=== PATIENT | male | born 1945 | race Caucasian/White ===

== ENCOUNTER 2020-09-23 15:34 | Observation (INO) | payer MEDICARE, MEDICAID, SELFPAY ==
--- NOTE | ~2020-09-23 | CT_ITS ---
EXAMINATION: CT HEAD WITHOUT CONTRAST CLINICAL INFORMATION: Slurred speech and weakness COMPARISON: Previous head CT September 2018 TECHNIQUE: Contiguous axial imaging was performed from the skull base to vertex without intravenous administration of contrast. This CT examination was performed using dose optimization techniques as appropriate, variously including the following: *Automated exposure control *Adjustment of mA and/or kV according to patient size (this includes techniques or standardized protocols for targeted exams where dose is matched to indication/reason for exam; i.e. extremities or head) *Use of iterative reconstruction technique DLP: 716 mGy-cm FINDINGS: There is no evidence of an extra-axial collection. There is no evidence of intra-axial or extra-axial hemorrhage. There is age-appropriate prominence of ventricles and extra-axial CSF spaces. There is nonspecific periventricular white matter disease. No mass, mass effect or infarct is seen. There is evidence of atherosclerotic disease. Review of bone windows is normal. Visualized mastoid air cells, middle ears and paranasal sinuses are clear. CT/CT head/brain wo con IMPRESSION: No acute intracranial findings. Age appropriate prominence of the ventricles and extra-axial CSF spaces and nonspecific periventricular white matter disease.
--- NOTE | ~2020-09-23 | XR_ITS ---
EXAMINATION: XR CHEST CLINICAL INFORMATION: TIA, slurred speech, weakness now resolved. COMPARISON: Chest radiographs 09/30/2018, 03/12/2018 TECHNIQUE: 2 views of the chest were obtained. FINDINGS: The lungs are clear. The vascularity is normal. There is no airspace consolidation or groundglass opacity or effusion. The costophrenic sulci are well-defined. The heart is normal in size. The hilar and mediastinal contours are normal. No visible acute bony abnormality. XR/XR chest 2V IMPRESSION: Unremarkable examination.
--- NOTE | ~2020-09-23 | US_ITS ---
EXAMINATION: US EXTRACRANIAL CAROTID DUPLEX, BILATERAL CLINICAL INFORMATION: Syncope COMPARISON: None TECHNIQUE: Real-time ultrasound and Doppler techniques (integrating B-mode 2-D vascular images, Doppler spectral analysis and color-flow Doppler imaging) were utilized to interrogate the extracranial carotid arteries, the vertebral arteries and proximal subclavian arteries bilaterally. The degree of stenosis is determined by criteria similar to NASCET. FINDINGS: Right Side: 1. There is minimal atherosclerotic plaque seen in the bifurcation/proximal ICA region. 2. The common carotid artery PSV proximally is 55 cm/s and distally 45 cm/s. 3. The proximal internal carotid artery velocities are 40 cm/s systolic and 10 cm/s diastolic. 4. The proximal external carotid artery PSV is 70 cm/s. 5. The vertebral artery shows antegrade flow. 6. The subclavian artery waveforms are normal. Left Side: 1. There is moderate atherosclerotic plaque seen in the bifurcation/proximal ICA region. 2. The common carotid artery PSV proximally is 56 cm/s and distally 50 cm/s. 3. The proximal internal carotid artery velocities are 105 cm/s systolic and 14 cm/s diastolic. Velocities are 125 in the mid ICA just after the proximal plaque. 4. The proximal external carotid artery PSV is 31 cm/s. 5. The vertebral artery shows antegrade flow. 6. The subclavian artery waveforms are normal. US/US carotid duplex BI IMPRESSION: 1. RIGHT: Minimal, non-hemodynamically significant stenosis of the proximal right internal carotid artery corresponding to a 0-49% stenosis by velocity criteria. 2. LEFT: Minimal, non-hemodynamically significant stenosis of the proximal left internal carotid artery corresponding to a 0-49% stenosis by velocity criteria.
[2020-09-23 15:35] VITALS: BP 126/75; BP 132/62; PULSE 92; PULSE 94; RESP 16; TEMP 36.9; O2SAT 95; BMI 25.1
--- NOTE | 2020-09-23 15:50 | ECG_ITS ---
Test Reason : TIA Blood Pressure : / mmHG Vent. Rate : 078 BPM Atrial Rate : 078 BPM P-R Int : 142 ms QRS Dur : 082 ms QT Int : 400 ms P-R-T Axes : 047 -39 050 degrees QTc Int : 456 ms Normal sinus rhythm Left axis deviation Possible Anterior infarct (cited on or before 30-SEP-2018) Abnormal ECG When compared with ECG of 30-SEP-2018 19:19, Premature atrial complexes are no longer Present Referred By: Christina Cai Electronically Signed By:DIANE EMERY MD
--- NOTE | 2020-09-23 15:50 | ED_ITS ---
HPI - Neuro Symptoms/Deficit General Chief Complaint: Neuro Symptoms/Deficit Stated Complaint: TIA? Time Seen by Provider: 09/23/20 15:50 Source: EMS and interpreter for the deaf Mode of arrival: EMS Limitations: language barrier History of Present Illness HPI Narrative: 75-year-old male with a past medical history of hypertension, hyperlipidemia, keq-fuipfir-rlizpydoz diabetes, GERD, dementia, diabetic neuropathy here with complaints of episode of slurred speech, weakness and facial droop which has since resolved. Family tells me at 14:50 the patient was sitting down when they noticed that he had a 10 minutes episode of slurred speech with a right-sided facial droop and his right arm was 'cramped and not working. Per family the patient was also complaining of some dizziness. When asked the patient how long his dizziness has been going on he tells me 3 days. He denies any headache, vision changes. No recent falls. He is on a baby aspirin daily Related Data Home Medications Medication Instructions Recorded Confirmed amlodipine 1 tab PO DAILY 09/23/20 09/23/20 aspirin 1 tab PO DAILY 09/23/20 09/23/20 bisacodyl 1 tab PO BEDTIME PRN 09/23/20 09/23/20 docusate sodium 1 cap PO BID 09/23/20 09/23/20 enalapril maleate 1 tab PO DAILY 09/23/20 09/23/20 gabapentin 1 cap PO BID 09/23/20 09/23/20 metformin 1 tab PO QAM 09/23/20 09/23/20 omeprazole 1 cap PO BID@0630,1630 09/23/20 09/23/20 simvastatin 1 tab PO BEDTIME 09/23/20 09/23/20 tizanidine 1 tab PO BID@09,15 09/23/20 09/23/20 tramadol 1 tab PO BID 09/23/20 09/23/20 Allergies Allergy/AdvReac Type Severity Reaction Status Date / Time No Known Allergies Allergy Unverified 11/21/19 15:41 [No Known Allergies*] Review of Systems Review of Systems: Yes all other systems are reviewed and are negative Constitutional: Constitutional: Reports no additional constitutional complaints, Denies body ache(s), Denies chills, Denies fever(s), Denies headache(s) and Reports weakness Eyes: Eyes: Reports no additional eye complaints and Denies change in vision ENT: Reports system reviewed and no additional complaints, except as documented, Denies dizziness, Denies headache(s), Denies nasal congestion, Denies nasal discharge and Denies neck pain Cardiovascular: Cardiovascular: Reports no additional cardiovascular complaints, Denies chest pain, Denies leg edema and Denies dyspnea Respiratory: Respiratory: Reports no additional respiratory complaints, Denies cough and Denies dyspnea Gastrointestinal: Gastrointestinal: Reports no additional gastrointestinal complaints, Denies abdominal pain, Denies diarrhea, Denies nausea and Denies vomiting Genitourinary: Genitourinary: Denies urinary incontinence Musculoskeletal: Musculoskeletal: Reports no additional musculoskeletal complaints, Denies back pain, Denies arthralgias, Denies joint swelling, Denies neck pain, Denies numbness and Denies tingling Integumentary/Breasts: Skin/Breast: Reports system reviewed and no additional complaints, except as docu and Denies rash Neurologic: Reports system reviewed and no additional complaints, except as documented, Reports Abnormal speech present, Denies dizziness, Denies headache(s), Denies numbness, Denies tingling and Reports weakness Comments: Facial weakness PMFSH Past Medical History Attestation statement: The following information was validated with the patient. Source: old records reviewed and nursing notes reviewed Medical History Dementia Diabetes Diabetic neuropathy GERD (gastroesophageal reflux disease) High cholesterol Hypertension Social History Social History Advance Directives: No Advance Directives Information Provided: No Physical Exam Vital Signs: Vital Signs: Last Vital Signs Temp 98.4 F 09/23/20 15:35 Pulse 92 09/23/20 15:35 Resp 16 09/23/20 15:35 BP 126/75 09/23/20 15:35 Pulse Ox 95 09/23/20 15:35 Body Mass Index 25.1 Const: General: cooperative, healthy appearing, comfortable and no acute distress Orientation/consciousness: oriented to person and oriented to place Limitations: no limitations HENMT: Head: Yes normal to inspection Ears: hearing grossly normal bilaterally General nose exam: Normal external nose present Face and sinus: Yes normal facial exam Mouth: Normal oral and palatal mucosa present Throat: Yes posterior oropharynx normal Eyes: General: appearance normal, both eyes and all related structures Pupils: Equal, round and reactive pupils present Neck: Neck: Yes normal visual inspection Chest: Chest palpation & inspection: normal inspection of the chest Resp: Effort & Inspection: normal respiratory effort Auscultation: clear to auscultation bilaterally Cardio: Rate: regular rate Rhythm: regular rhythm Peripheral pulses: Peripheral pulses 2+ throughout GI: Inspection: Yes normal to inspection Palpation (GI): Soft to palpation and nontender Auscultation: normal bowel sounds Back/Spine/Pelvis: Thoracic/Lumbar Spine: thoracic and lumbar spine normal to inspection Skin: General skin exam: no rashes or lesions noted Neuro: General: oriented to person, oriented to place, no focal motor deficits and normal sensation to monofilament Cranial nerves: Yes CN's II-XII intact bilaterally, Yes Equal, round and reactive pupils present, Yes Bilaterally intact EOM present, Yes Nystagmus not present, Yes Normal facial strength present, Yes Midline tongue present and Yes Normal gag reflex present Cognit ion (Neuro): normal cognition Speech: Abnormal speech present Gait exam (Neuro): Normal gait present Motor exam (neuro): 5/5 motor strength present throughout Sensory Exam: Normal double simultaneous stimulation for sensation Coordination: [id number] test normal, [id number]-[id number] test normal and tandem gait normal Extrem: General: Yes normal to inspection, Yes no pedal edema and Yes no calf tenderness Course Course Course Narrative: 75-year-old male here with episode of speech change, facial droop and weakness on 1 side which resolved prior to arrival to the emergency department. On arrival the patient is neurologically intact. He does have some mild confusion but family tells me this is normal for him due to dementia. NIH 0. Sounds like TIA. Will check labs, EKG, chest x-ray, CT head. Patient will require admission for further w/u. 1745-labs, urine, EKG, imaging all unremarkable. His troponin is in the indeterminate range. He has no reports of chest pain with EKG which shows no new changes. Plan for repeat 3 hour troponin. Call out to medicines discussed for admission 1809-Dr Devlin accepted admission. MDM - Neuro Symptoms/Deficit Differential Diagnosis Differential diagnosis: Likely subarachnoid hemorrhage, cerebrovascular accident and transient cerebral ischemia Medical Records Attestation: I reviewed the patient's medical records. Lab Data Attestation: I reviewed the patient's lab results. Result diagrams: 09/23/20 16:57 09/23/20 16:57 Labs: Lab Results 09/23/20 09/23/20 09/23/20 Range/Units 16:57 16:57 16:57 WBC 7.7 (4.8-10.8) X10*3/uL RBC 4.99 (4.60-5.80) X10*6/uL Hgb 14.1 (14.0-18.0) g/dl Hct 43.7 (42-52) % MCV 87.6 (80-98) fL MCH 28.3 (27.0-33.0) pg MCHC 32.3 (31.0-36.0) g/dl RDW 11.9 (11.0-16.0) % Plt Count 184 (160-400) X10*3/uL MPV 10.8 (9.4-12.4) fL Immature Gran % (Auto) 0.3 (0.0-0.4) % Neut % (Auto) 67.1 (45-73) % Lymph % (Auto) 21.1 (20-40) % [place] % (Auto) 9.8 (2-11) % Eos % (Auto) 0.9 (0-4) % Baso % (Auto) 0.8 (0-2) % Lymph # (Auto) 1.6 (1.2-4.9) X10*3/uL [place] # (Auto) 0.8 (0.1-1.2) X10*3/uL Eos # (Auto) 0.1 (0.0-0.4) X10*3/uL Baso # (Auto) 0.1 (0.0-0.2) X10*3/uL Abs Immat Gran (auto) 0.02 (0.00-0.03) X10*3/uL Absolute Neuts (auto) 5.2 (2.0-8.3) X10*3/uL Absolute Nucleated RBC 0.000 (0.0-0.012) X10*3/uL Nucleated RBC % (auto) 0.0 (0.0-0.2) /100WBC PT 11.7 (9.9-13.0) SEC INR 1.0 (0.9-1.1) APTT 33.3 (24.1-38.0) SEC Sodium 138 (135-145) mmol/L Potassium 4.6 (3.3-5.1) mmol/L Chloride 105 (96-108) mmol/L Carbon Dioxide 25 (22-29) mmol/L Anion Gap 13 (12-20) BUN 17 H (9-16) mg/dL Creatinine 1.10 (0.5-1.4) mg/dL Estim Creat Clear Calc 60.8 Estimated GFR > 60 POC Glucose (60-115) mg/dL Random Glucose 152 H (60-115) mg/dL Calcium 10.0 (8.4-10.2) mg/dL Phosphorus 2.9 (2.7-4.5) mg/dL Magnesium 2.0 (1.6-2.6) mg/dL Total Creatine Kinase 82 (38-174) U/L Troponin I High Sens (<3.5-35.0) ng/L TSH 1.29 (0.32-4.0) uIU/mL Urine Color Urine Appearance Urine pH (5.0-8.0) Ur Specific [place] (1.005-1.025) Urine Protein (NEG-TRACE) MG/DL Urine Glucose (UA) (NEG) MG/DL Urine Ketones (NEG) MG/DL Urine Blood (NEG) Urine Nitrite (NEG) Ur Leukocyte Esterase (NEG) COVID-19 (JOANNE) (Negative) COVID-19 Clin Com 09/23/20 09/23/20 09/23/20 Range/Units 16:57 16:57 17:08 WBC (4.8-10.8) X10*3/uL RBC (4.60-5.80) X10*6/uL Hgb (14.0-18.0) g/dl Hct (42-52) % MCV (80-98) fL MCH (27.0-33.0) pg MCHC (31.0-36.0) g/dl RDW (11.0-16.0) % Plt Count (160-400) X10*3/uL MPV (9.4-12.4) fL Immature Gran % (Auto) (0.0-0.4) % Neut % (Auto) (45-73) % Lymph % (Auto) (20-40) % [place] % (Auto) (2-11) % Eos % (Auto) (0-4) % Baso % (Auto) (0-2) % Lymph # (Auto) (1.2-4.9) X10*3/uL [place] # (Auto) (0.1-1.2) X10*3/uL Eos # (Auto) (0.0-0.4) X10*3/uL Baso # (Auto) (0.0-0.2) X10*3/uL Abs Immat Gran (auto) (0.00-0.03) X10*3/uL Absolute Neuts (auto) (2.0-8.3) X10*3/uL Absolute Nucleated RBC (0.0-0.012) X10*3/uL Nucleated RBC % (auto) (0.0-0.2) /100WBC PT (9.9-13.0) SEC INR (0.9-1.1) APTT (24.1-38.0) SEC Sodium (135-145) mmol/L Potassium (3.3-5.1) mmol/L Chloride (96-108) mmol/L Carbon Dioxide (22-29) mmol/L Anion Gap (12-20) BUN (9-16) mg/dL Creatinine (0.5-1.4) mg/dL Estim Creat Clear Calc Estimated GFR POC Glucose 145 H (60-115) mg/dL Random Glucose (60-115) mg/dL Calcium (8.4-10.2) mg/dL Phosphorus (2.7-4.5) mg/dL Magnesium (1.6-2.6) mg/dL Total Creatine Kinase (38-174) U/L Troponin I High Sens 32.1 (<3.5-35.0) ng/L TSH (0.32-4.0) uIU/mL Urine Color Urine Appearance Urine pH (5.0-8.0) Ur Specific [place] (1.005-1.025) Urine Protein (NEG-TRACE) MG/DL Urine Glucose (UA) (NEG) MG/DL Urine Ketones (NEG) MG/DL Urine Blood (NEG) Urine Nitrite (NEG) Ur Leukocyte Esterase (NEG) COVID-19 (JOANNE) Negative (Negative) COVID-19 Clin Com See Note 09/23/20 Range/Units 17:14 WBC (4.8-10.8) X10*3/uL RBC (4.60-5.80) X10*6/uL Hgb (14.0-18.0) g/dl Hct (42-52) % MCV (80-98) fL MCH (27.0-33.0) pg MCHC (31.0-36.0) g/dl RDW (11.0-16.0) % Plt Count (160-400) X10*3/uL MPV (9.4-12.4) fL Immature Gran % (Auto) (0.0-0.4) % Neut % (Auto) (45-73) % Lymph % (Auto) (20-40) % [place] % (Auto) (2-11) % Eos % (Auto) (0-4) % Baso % (Auto) (0-2) % Lymph # (Auto) (1.2-4.9) X10*3/uL [place] # (Auto) (0.1-1.2) X10*3/uL Eos # (Auto) (0.0-0.4) X10*3/uL Baso # (Auto) (0.0-0.2) X10*3/uL Abs Immat Gran (auto) (0.00-0.03) X10*3/uL Absolute Neuts (auto) (2.0-8.3) X10*3/uL Absolute Nucleated RBC (0.0-0.012) X10*3/uL Nucleated RBC % (auto) (0.0-0.2) /100WBC PT (9.9-13.0) SEC INR (0.9-1.1) APTT (24.1-38.0) SEC Sodium (135-145) mmol/L Potassium (3.3-5.1) mmol/L Chloride (96-108) mmol/L Carbon Dioxide (22-29) mmol/L Anion Gap (12-20) BUN (9-16) mg/dL Creatinine (0.5-1.4) mg/dL Estim Creat Clear Calc Estimated GFR POC Glucose (60-115) mg/dL Random Glucose (60-115) mg/dL Calcium (8.4-10.2) mg/dL Phosphorus (2.7-4.5) mg/dL Magnesium (1.6-2.6) mg/dL Total Creatine Kinase (38-174) U/L Troponin I High Sens (<3.5-35.0) ng/L TSH (0.32-4.0) uIU/mL Urine Color YELLOW Urine Appearance CLEAR Urine pH 5.5 (5.0-8.0) Ur Specific [place] >= 1.030 H (1.005-1.025) Urine Protein NEG (NEG-TRACE) MG/DL Urine Glucose (UA) NEG (NEG) MG/DL Urine Ketones NEG (NEG) MG/DL Urine Blood NEG (NEG) Urine Nitrite NEG (NEG) Ur Leukocyte Esterase NEG (NEG) COVID-19 (JOANNE) (Negative) COVID-19 Clin Com Imaging Data CT scan - head: Attestation: I personally reviewed and interpreted this imaging study as follows: Radiologist's impression: FINDINGS: There is no evidence of an extra-axial collection. There is no evidence of intra-axial or extra-axial hemorrhage. There is age-appropriate prominence of ventricles and extra-axial CSF spaces. There is nonspecific periventricular white matter disease. No mass, mass effect or infarct is seen. There is evidence of atherosclerotic disease. Review of bone windows is normal. Visualized mastoid air cells, middle ears and paranasal sinuses are clear. CT/CT head/brain wo con IMPRESSION: No acute intracranial findings. Age appropriate prominence of the ventricles and extra-axial CSF spaces and nonspecific periventricular white matter disease. Chest x-ray: Attestation: I personally reviewed and interpreted this imaging study as follows: Radiologist's impression: [facility] [place] [id number] ReportSigned Patient: Melly Lua#: [id number]: 5Acct:[id number]/Sex: 75 / MADM Date: 09/23/20Loc: [address]: Ordering Physician: GATO FABIAN NP Date of Service: 09/23/20 Procedure(s): XR chest 2V Accession Number(s): [id number] cc: GATO FABIAN TRANSPORTATION DIRECTOR~ EXAMINATION: XR CHEST CLINICAL INFORMATION: TIA, slurred speech, weakness now resolved. COMPARISON: Chest radiographs 09/30/2018, 03/12/2018 TECHNIQUE: 2 views of the chest were obtained. FINDINGS: The lungs are clear. The vascularity is normal. There is no airspace consolidation or groundglass opacity or effusion. The costophrenic sulci are well-defined. The heart is normal in size. The hilar and mediastinal contours are normal. No visible acute bony abnormality. XR/XR chest 2V IMPRESSION: Unremarkable examination. ECG Data Attestation: I personally reviewed and interpreted this ECG as follows: ECG interpretation date: 09/23/20 ECG interpretation time: 16:44 Interpretation: Normal sinus rhythm with a rate of 78, normal [place], normal QRS, Discharge Plan Discharge Clinical Impression: Transient cerebral ischemia Patient Disposition: Admitted As Inpatient
--- NOTE | 2020-09-23 16:47 | PHA.MEDREC ---
Pharmacy Consult ? Medication Reconciliation Pharmacy has completed the medication reconciliation from list brought in by family.
[2020-09-23 17:04] LABS: MANUAL DIFF FLAG NO
[2020-09-23 17:08] LABS: Basophils Absolute Auto 0.1 X10*3/uL (0.0-0.2); Basophils Percent Auto 0.8 % (0-2); Eosinophils Absolute Auto 0.1 X10*3/uL (0.0-0.4); Eosinophils Percent Auto 0.9 % (0-4); Hematocrit 43.7 % (42-52); Hemoglobin 14.1 g/dl (14.0-18.0); Imm Gran Abs Auto 0.02 X10*3/uL (0.00-0.03); Imm Gran Pct Auto 0.3 % (0.0-0.4); Lymphocytes Absolute Auto 1.6 X10*3/uL (1.2-4.9); Lymphocytes Percent Auto 21.1 % (20-40); Mean Corpuscular HGB Conc 32.3 g/dl (31.0-36.0); Mean Corpuscular Hemoglobin 28.3 pg (27.0-33.0); Mean Corpuscular Volume 87.6 fL (80-98); Mean Platelet Volume 10.8 fL (9.4-12.4); Monocytes Absolute Auto 0.8 X10*3/uL (0.1-1.2); Monocytes Percent Auto 9.8 % (2-11); Neutrophils Absolute Auto 5.2 X10*3/uL (2.0-8.3); Neutrophils Percent Auto 67.1 % (45-73); Platelet Count 184 X10*3/uL (160-400); Red Blood Count 4.99 X10*6/uL (4.60-5.80); Red Cell Distribution Width 11.9 % (11.0-16.0); White Blood Count 7.7 X10*3/uL (4.8-10.8)
[2020-09-23 17:12] LABS: Glucose, Whole Blood 145 mg/dL (60-115)
[2020-09-23 17:23] LABS: COVID-19 Test Negative (Negative)
[2020-09-23 17:24] LABS: Glucose Urine UA NEG (NEG); Leukocyte Esterase Urine NEG (NEG); Nitrite Urine NEG (NEG); PH 5.5 (5.0-8.0); Specific Gravity - Urine >= 1.030 (1.005-1.025); Urine Blood NEG (NEG); Urine Ketones NEG (NEG); Urine Protein NEG (NEG-TRACE)
[2020-09-23 17:25] LABS: Prothrombin Time 11.7 SEC (9.9-13.0)
[2020-09-23 17:26] LABS: Appearance Urine CLEAR; Color Urine YELLOW
[2020-09-23 17:27] LABS: Partial Thromboplastin Time 33.3 SEC (24.1-38.0)
[2020-09-23 17:42] LABS: Troponin-I High Sensitivity 32.1 ng/L (<3.5-35.0)
[2020-09-23 17:43] LABS: Anion Gap 13 (12-20); Blood Urea Nitrogen 17 mg/dL (9-16); Carbon Dioxide 25 mmol/L (22-29); Chloride 105 mmol/L (96-108); Creatinine Clr Calc Pharmacy 60.8; Estimated Glomerular Filt Rate > 60; Glucose Random 152 mg/dL (60-115); Phosphorus 2.9 mg/dL (2.7-4.5); Potassium 4.6 mmol/L (3.3-5.1); Sodium 138 mmol/L (135-145)
[2020-09-23 18:01] LABS: Thyroid Stimulating Hormone 1.29 uIU/mL (0.32-4.0)
[2020-09-23 19:11] VITALS: BP 148/78; PULSE 87; RESP 18; TEMP 36.7; O2SAT 98
--- NOTE | 2020-09-23 19:15 | PC.NURSE ---
pt alert and oriented x3, mostly Icelandic speaking. eye contact and verbal response appropriate for setting. perrla. respirations even and unlabored. no facial drooping noted at this time, speech clear. pt able to smile and stick out tongue, able to squeeze this nurses fingers with both his hands, able to move his upper and lower extremities bilaterally and able to push and pull against this nurses hands with his feet bilaterally. family at bedside and states this is pts baseline. no distress noted at this time. pt and family aware of plan for admission. pt and family have no questions or concerns at this time. call aguilera in reach.
[2020-09-23] MEDS: Acetaminophen 325 MG TABLET 650 MG PO (19:27)
--- NOTE | 2020-09-23 19:30 | PC.NURSE ---
Susy Floyd (daughter) [phone] to be called with updates. Pt medicated per MAY.
[2020-09-23 19:58] VITALS: BP 137/67; PULSE 87; RESP 20; TEMP 36.8; O2SAT 95
--- NOTE | 2020-09-23 20:26 | P.HPHOSP_ITS ---
History of Present Illness Date of Service: 09/23/20 Chief Complaint: Slurred speech 75-year-old male with a past medical history of hypertension, hyperlipidemia, diabetes, GERD, diabetic neuropathy presented to the hospital with a chief complaint of slurred speech; symptoms started this afternoon lasted for about an hour at the same time family also noted left facial droop; subsequently came to the ER for further evaluation. Denied any chest pain palpitations. But reported mild dizziness and generalized weakness. Denies any numbness tingling. Denies any recent travel or sick contacts. Denies any fever chills cough, denies any GI or symptoms. Review of all other systems is negative except mentioned above ER course: As noted with the ER team patient's exam was nonfocal; CT head showed no acute findings. Admitted to the hospital for TIA. [facility] Medical History Dementia Diabetes Diabetic neuropathy GERD (gastroesophageal reflux disease) High cholesterol Hypertension Social History Patient Tobacco Use Status: Former Tobacco user Tobacco use type: Cigarette Meds Allergies Allergy/AdvReac Type Severity Reaction Status Date / Time No Known Allergies Allergy Unverified 11/21/19 15:41 [No Known Allergies*] Active Medications: Current Medications Generic Name Dose Route Start Last Admin Trade Name Freq PRN Reason Stop Dose Admin Acetaminophen 650 mg 09/23/20 19:49 Acetaminophen 325 Mg Tablet PO Q6H PRN Pain, Mild (Pain Scale 1-3) Amlodipine Besylate 5 mg 09/24/20 09:00 Amlodipine Besylate 5 Mg Tablet PO DAILY [facility] Protocol Aspirin 81 mg 09/24/20 09:00 Aspirin Enteric Coated 81 Mg Tablet. PO DAILY [facility] Atorvastatin Calcium 10 mg 09/23/20 21:00 Atorvastatin Calcium 10 Mg Tablet PO BEDTIME CHARLY Bisacodyl 5 mg 09/23/20 19:52 Bisacodyl 5 Mg Tablet. PO BEDTIME PRN Constipation Docusate Sodium 100 mg 09/23/20 21:00 Docusate Sodium 100 Mg Capsule PO BID [facility] Enalapril Maleate 20 mg 09/24/20 09:00 Enalapril Maleate 10 Mg Tablet PO DAILY [facility] Protocol Gabapentin 100 mg 09/23/20 21:00 Gabapentin 100 Mg Capsule PO BID [facility] Insulin Human Lispro 0 unit 09/23/20 21:00 Insulin Lispro 100 Unit/Ml 3 Ml Vial SUBCUT QIDACHS [facility] Protocol Melatonin 6 mg 09/23/20 19:49 Melatonin 3 Mg Tablet PO BEDTIME PRN Insomnia Omeprazole 20 mg 09/24/20 06:30 Omeprazole 20 Mg Capsule.Dr PO BID@0630,1630 [facility] Pharmacy Consult 1 each 09/23/20 16:19 Consult Rx Perform Med Rec MISCELLANE ONCE PRN Consult order Sodium Chloride 3 ml 09/24/20 00:00 0.9 % Sodium Chloride Flush 3 Ml Syringe IVFLUSH QSHIFT [facility] Tizanidine HCl 4 mg 09/24/20 09:00 Tizanidine Hcl 4 Mg Tablet PO BID@,15 [facility] Tramadol HCl 50 mg 09/23/20 21:00 Tramadol Hcl 50 Mg Tablet PO BID [facility] Home Medications Medication Instructions Recorded Confirmed Last Taken Type amlodipine 5 mg tablet 1 tab PO DAILY 09/23/20 09/23/20 09/23/20 History aspirin 81 mg tablet,delayed 1 tab PO DAILY 09/23/20 09/23/20 09/23/20 History release bisacodyl 5 mg tablet,delayed 1 tab PO BEDTIME PRN 09/23/20 09/23/20 Unknown History release docusate sodium 100 mg capsule 1 cap PO BID 09/23/20 09/23/20 09/23/20 History enalapril maleate 20 mg tablet 1 tab PO DAILY 09/23/20 09/23/20 09/23/20 History gabapentin 100 mg capsule 1 cap PO BID 09/23/20 09/23/20 09/23/20 History metformin 500 mg tablet,extended 1 tab PO QAM 09/23/20 09/23/20 09/23/20 History release 24 hr omeprazole 20 mg capsule,delayed 1 cap PO BID@0630,1630 09/23/20 09/23/20 09/23/20 History release simvastatin 20 mg tablet 1 tab PO BEDTIME 09/23/20 09/23/20 09/22/20 History tizanidine 4 mg tablet 1 tab PO BID@09,15 09/23/20 09/23/20 09/23/20 History tramadol 50 mg tablet 1 tab PO BID 09/23/20 09/23/20 09/23/20 History Physical Exam Vital Signs and Narrative: Vital Signs: Last Vital Signs Temp 98.3 F 09/23/20 19:58 Pulse 87 09/23/20 19:58 Resp 20 09/23/20 19:58 BP 137/67 09/23/20 19:58 Pulse Ox 95 09/23/20 19:58 Body Mass Index 25.1 Gen: Appears be in no acute distress HEENT: NCAT, Moist mucosa. Pulmonary: Vesicular breath sounds, fair air entry CVS: Normal S1-S2 Abdomen: BS+, Soft, Nontender Extremities: Warm well perfused Neuro: Alert and awake. Nonfocal Results Labs CBC and Chem 7: 09/24/20 07:51 09/24/20 07:51 Labs: Laboratory Results - last 24 hr 09/23/20 09/23/20 09/23/20 16:57 16:57 16:57 MCV 87.6 MCH 28.3 MCHC 32.3 RDW 11.9 Plt Count 184 MPV 10.8 Immature Gran % (Auto) 0.3 Neut % (Auto) 67.1 Lymph % (Auto) 21.1 [place] % (Auto) 9.8 Eos % (Auto) 0.9 Baso % (Auto) 0.8 Lymph # (Auto) 1.6 [place] # (Auto) 0.8 Eos # (Auto) 0.1 Baso # (Auto) 0.1 Abs Immat Gran (auto) 0.02 Absolute Neuts (auto) 5.2 Absolute Nucleated RBC 0.000 Nucleated RBC % (auto) 0.0 PT 11.7 INR 1.0 APTT 33.3 Anion Gap 13 Estim Creat Clear Calc 60.8 Estimated GFR > 60 POC Glucose Random Glucose 152 H Calcium 10.0 Phosphorus 2.9 Magnesium 2.0 Total Creatine Kinase 82 Troponin I High Sens TSH 1.29 Urine Color Urine Appearance Urine pH Ur Specific [place] Urine Protein Urine Glucose (UA) Urine Ketones Urine Blood Urine Nitrite Ur Leukocyte Esterase COVID-19 (JOANNE) COVID-19 Clin Com 09/23/20 09/23/20 09/23/20 16:57 16:57 17:08 MCV MCH MCHC RDW Plt Count MPV Immature Gran % (Auto) Neut % (Auto) Lymph % (Auto) [place] % (Auto) Eos % (Auto) Baso % (Auto) Lymph # (Auto) [place] # (Auto) Eos # (Auto) Baso # (Auto) Abs Immat Gran (auto) Absolute Neuts (auto) Absolute Nucleated RBC Nucleated RBC % (auto) PT INR APTT Anion Gap Estim Creat Clear Calc Estimated GFR POC Glucose 145 H Random Glucose Calcium Phosphorus Magnesium Total Creatine Kinase Troponin I High Sens 32.1 TSH Urine Color Urine Appearance Urine pH Ur Specific [place] Urine Protein Urine Glucose (UA) Urine Ketones Urine Blood Urine Nitrite Ur Leukocyte Esterase COVID-19 (JOANNE) Negative COVID-19 Clin Com See Note 09/23/20 09/23/20 17:14 20:03 MCV MCH MCHC RDW Plt Count MPV Immature Gran % (Auto) Neut % (Auto) Lymph % (Auto) [place] % (Auto) Eos % (Auto) Baso % (Auto) Lymph # (Auto) [place] # (Auto) Eos # (Auto) Baso # (Auto) Abs Immat Gran (auto) Absolute Neuts (auto) Absolute Nucleated RBC Nucleated RBC % (auto) PT INR APTT Anion Gap Estim Creat Clear Calc Estimated GFR POC Glucose Random Glucose Calcium Phosphorus Magnesium Total Creatine Kinase Troponin I High Sens Cancelled TSH Urine Color YELLOW Urine Appearance CLEAR Urine pH 5.5 Ur Specific [place] >= 1.030 H Urine Protein NEG Urine Glucose (UA) NEG Urine Ketones NEG Urine Blood NEG Urine Nitrite NEG Ur Leukocyte Esterase NEG COVID-19 (JOANNE) COVID-19 Clin Com Imaging Radiologist's Impressions: Impressions Chest X-Ray 09/23/20 15:50 IMPRESSION: Unremarkable examination. Head CT 09/23/20 15:50 IMPRESSION: No acute intracranial findings. Age appropriate prominence of the ventricles and extra-axial CSF spaces and nonspecific periventricular white matter disease. Assessment and Plan (1) Transient cerebral ischemia: Status: Acute 75-year-old male with a past medical history of hypertension, hyperlipidemia, diabetes, diabetic neuropathy presented to the hospital with a chief complaint of slurred speech/left facial droop. Symptoms improved. Admitted for TIA workup. TIA: Patient currently symptoms resolved. Nonfocal examination. Neurology consult. Echocardiogram with bubble study PT/OT Speech and swallow eval Neuro checks Troponin x1 negative; repeat troponin pending Patient is on aspirin statin. Diabetes: Hold home metformin. Insulin sliding scale. Hypertension/hyperlipidemia: Continue home medications. DVT prophylaxis: SCD boots Code status: Full code Quality Stroke Does the patient have a stroke diagnosis?: No VTE Prior VTE?: No VTE Risk Level:: Medical - moderate - high VTE Device Contraindication: N/A - Device Ordered VTE Drug Contraindication: Treatment Not Indicated
[2020-09-23 20:51] LABS: Troponin-I High Sensitivity 32.3 ng/L (<3.5-35.0)
[2020-09-23 21:15] LABS: Glucose, Whole Blood 148 mg/dL (60-115)
[2020-09-23 22:05] VITALS: RESP 16
[2020-09-23 22:06] VITALS: BP 131/74; PULSE 84; RESP 18; TEMP 36.9; O2SAT 96
[2020-09-23 22:11] LABS: Glucose, Whole Blood 124 mg/dL (60-115)
[2020-09-23] MEDS: Atorvastatin Calcium 10 MG TABLET PO (22:30)
[2020-09-23] MEDS: Gabapentin 100 MG CAPSULE PO (22:30)
[2020-09-23] MEDS: Docusate Sodium 100 MG CAPSULE PO (22:30)
[2020-09-23] MEDS: traMADoL HCL 50 MG TABLET PO (22:30)
[2020-09-24] VITALS (8 sets, daily range): BP systolic 109–145; BP diastolic 72–78; PULSE 62–77; RESP 14–18; TEMP 36.1–36.4; O2SAT 96–98
[2020-09-24] MEDS: 0.9 % Sodium Chloride Flush 3 ML SYRINGE IVFLUSH ×4 (00:06→20:44)
--- NOTE | 2020-09-24 01:02 | PC.NURSE ---
300cc of clear yellow urine emptied from bedside urinal pt resting comfortably in bed in semi-fowlers watchng tv. no distress noted at this time call aguilera in reach
--- NOTE | 2020-09-24 06:51 | PC.NURSE ---
700cc of clear yellow urine emptied from bedside urinal
[2020-09-24] MEDS: Omeprazole 20 MG CAPSULE.DR PO ×2 (07:24→17:13)
[2020-09-24 07:25] LABS: Glucose, Whole Blood 122 mg/dL (60-115)
--- NOTE | 2020-09-24 07:37 | PC.NURSE ---
pt's daughter trish ([phone]) was callled and updated on pt's status of being transfered to room 386. pt is also aware of plan of care for admission to hosp.
--- NOTE | 2020-09-24 07:44 | PC.NURSE ---
nurse to nurse given to zenaida lawson.
[2020-09-24 07:57] LABS: MANUAL DIFF FLAG NO
--- NOTE | 2020-09-24 07:59 | PC.NURSE ---
pt is a/o x 3 no sob/britt noted. skin pink warm dry speaks in full sentences.
--- NOTE | 2020-09-24 08:04 | P.PNIM_ITS ---
Subjective Subjective Date of Service: 09/24/20 Interval History: tia Review of Systems Patient denies any chest pain or shortness of breath or abdominal pain or fever chills or cough or phlegm . He says his symptoms also improved neurologically. Physical Exam Vital Signs: Vital Signs: Last Vital Signs Temp 98.4 F 09/23/20 22:06 Pulse 76 09/24/20 07:27 Resp 17 09/24/20 07:27 BP 127/74 09/24/20 07:27 Pulse Ox 96 09/24/20 07:27 Body Mass Index 25.1 Physical exam: Cvs: rrr, [id number] , no murmur res: clear to auscultation ,no rhonchii or wheezing abd: no rebound or guarding ,nt, bs present. ext pulses present , no cyanosis neuro: axo3 , nonfocal. Objective Data Current Medications Generic Name Dose Route Start Last Admin Trade Name Freq PRN Reason Stop Dose Admin Acetaminophen 650 mg 09/23/20 19:49 Acetaminophen 325 Mg Tablet PO Q6H PRN Pain, Mild (Pain Scale 1-3) Amlodipine Besylate 5 mg 09/24/20 09:00 Amlodipine Besylate 5 Mg Tablet PO DAILY [facility] Protocol Aspirin 81 mg 09/24/20 09:00 Aspirin Enteric Coated 81 Mg Tablet. PO DAILY [facility] Atorvastatin Calcium 10 mg 09/23/20 21:00 09/23/20 22:30 Atorvastatin Calcium 10 Mg Tablet PO 10 mg BEDTIME [facility] Administration Bisacodyl 5 mg 09/23/20 19:52 Bisacodyl 5 Mg Tablet. PO BEDTIME PRN Constipation Docusate Sodium 100 mg 09/23/20 21:00 09/23/20 22:30 Docusate Sodium 100 Mg Capsule PO 100 mg BID CHARLY Administration Enalapril Maleate 20 mg 09/24/20 09:00 Enalapril Maleate 10 Mg Tablet PO DAILY [facility] Protocol Gabapentin 100 mg 09/23/20 21:00 09/23/20 22:30 Gabapentin 100 Mg Capsule PO 100 mg BID CHARLY Administration Insulin Human Lispro 0 unit 09/23/20 21:00 09/24/20 07:29 Insulin Lispro 100 Unit/Ml 3 Ml Vial SUBCUT Not Given QIDACHS [facility] Protocol Melatonin 6 mg 09/23/20 19:49 Melatonin 3 Mg Tablet PO BEDTIME PRN Insomnia Omeprazole 20 mg 09/24/20 06:30 09/24/20 07:24 Omeprazole 20 Mg Capsule. PO 20 mg BID@1758,5357 [facility] Administration Pharmacy Consult 1 each 09/23/20 16:19 Consult Rx Perform Med Rec MISCELLANE ONCE PRN Consult order Sodium Chloride 3 ml 09/24/20 00:00 09/24/20 00:06 0.9 % Sodium Chloride Flush 3 Ml Syringe IVFLUSH 3 ml QSHIFT [facility] Administration Tizanidine HCl 4 mg 09/24/20 09:00 Tizanidine Hcl 4 Mg Tablet PO BID@09,15 [facility] Tramadol HCl 50 mg 09/23/20 21:00 09/23/20 22:30 Tramadol Hcl 50 Mg Tablet PO 50 mg BID [facility] Administration Labs CBC & Chem 7: 09/24/20 07:51 09/24/20 07:51 Labs: Laboratory Results - last 24 hr 09/23/20 09/23/20 09/23/20 16:57 16:57 16:57 WBC 7.7 RBC 4.99 Hgb 14.1 Hct 43.7 MCV 87.6 MCH 28.3 MCHC 32.3 RDW 11.9 Plt Count 184 MPV 10.8 Immature Gran % (Auto) 0.3 Neut % (Auto) 67.1 Lymph % (Auto) 21.1 [place] % (Auto) 9.8 Eos % (Auto) 0.9 Baso % (Auto) 0.8 Lymph # (Auto) 1.6 [place] # (Auto) 0.8 Eos # (Auto) 0.1 Baso # (Auto) 0.1 Abs Immat Gran (auto) 0.02 Absolute Neuts (auto) 5.2 Absolute Nucleated RBC 0.000 Nucleated RBC % (auto) 0.0 PT 11.7 INR 1.0 APTT 33.3 Sodium 138 Potassium 4.6 Chloride 105 Carbon Dioxide 25 Anion Gap 13 BUN 17 H Creatinine 1.10 Estim Creat Clear Calc 60.8 Estimated GFR > 60 POC Glucose Random Glucose 152 H Calcium 10.0 Phosphorus 2.9 Magnesium 2.0 Total Creatine Kinase 82 Troponin I High Sens TSH 1.29 Urine Color Urine Appearance Urine pH Ur Specific [place] Urine Protein Urine Glucose (UA) Urine Ketones Urine Blood Urine Nitrite Ur Leukocyte Esterase COVID-19 ([facility]) COVID-19 Clin Com 09/23/20 09/23/20 09/23/20 16:57 16:57 17:08 WBC RBC Hgb Hct MCV MCH MCHC RDW Plt Count MPV Immature Gran % (Auto) Neut % (Auto) Lymph % (Auto) [place] % (Auto) Eos % (Auto) Baso % (Auto) Lymph # (Auto) [place] # (Auto) Eos # (Auto) Baso # (Auto) Abs Immat Gran (auto) Absolute Neuts (auto) Absolute Nucleated RBC Nucleated RBC % (auto) PT INR APTT Sodium Potassium Chloride Carbon Dioxide Anion Gap BUN Creatinine Estim Creat Clear Calc Estimated GFR POC Glucose 145 H Random Glucose Calcium Phosphorus Magnesium Total Creatine Kinase Troponin I High Sens 32.1 TSH Urine Color Urine Appearance Urine pH Ur Specific [place] Urine Protein Urine Glucose (UA) Urine Ketones Urine Blood Urine Nitrite Ur Leukocyte Esterase COVID-19 ([facility]ANNE) Negative COVID-19 Clin Com See Note 09/23/20 09/23/20 09/23/20 17:14 20:03 20:03 WBC RBC Hgb Hct MCV MCH MCHC RDW Plt Count MPV Immature Gran % (Auto) Neut % (Auto) Lymph % (Auto) [place] % (Auto) Eos % (Auto) Baso % (Auto) Lymph # (Auto) [place] # (Auto) Eos # (Auto) Baso # (Auto) Abs Immat Gran (auto) Absolute Neuts (auto) Absolute Nucleated RBC Nucleated RBC % (auto) PT INR APTT Sodium Potassium Chloride Carbon Dioxide Anion Gap BUN Creatinine Estim Creat Clear Calc Estimated GFR POC Glucose Random Glucose Calcium Phosphorus Magnesium Total Creatine Kinase Troponin I High Sens 32.3 Cancelled TSH Urine Color YELLOW Urine Appearance CLEAR Urine pH 5.5 Ur Specific [place] >= 1.030 H Urine Protein NEG Urine Glucose (UA) NEG Urine Ketones NEG Urine Blood NEG Urine Nitrite NEG Ur Leukocyte Esterase NEG COVID-19 ([facility]) COVID-19 Clin Blockchain 09/23/20 09/23/20 09/24/20 21:11 22:05 07:22 WBC RBC Hgb Hct MCV MCH MCHC RDW Plt Count MPV Immature Gran % (Auto) Neut % (Auto) Lymph % (Auto) [place] % (Auto) Eos % (Auto) Baso % (Auto) Lymph # (Auto) [place] # (Auto) Eos # (Auto) Baso # (Auto) Abs Immat Gran (auto) Absolute Neuts (auto) Absolute Nucleated RBC Nucleated RBC % (auto) PT INR APTT Sodium Potassium Chloride Carbon Dioxide Anion Gap BUN Creatinine Estim Creat Clear Calc Estimated GFR POC Glucose 148 H 124 H 122 H Random Glucose Calcium Phosphorus Magnesium Total Creatine Kinase Troponin I High Sens TSH Urine Color Urine Appearance Urine pH Ur Specific [place] Urine Protein Urine Glucose (UA) Urine Ketones Urine Blood Urine Nitrite Ur Leukocyte Esterase COVID-19 ([facility]ANNE) COVID-19 Clin Com Quality Stroke Does the patient have a stroke diagnosis?: No VTE Prior VTE?: No VTE Risk Level:: Medical - moderate - high VTE Device Contraindication: N/A - Device Ordered VTE Drug Contraindication: Treatment Not Indicated Assessment and Plan (1) Transient cerebral ischemia: Status: Acute Assessment and Plan: 75-year-old male with a past medical history of hypertension, hyperlipidemia, diabetes, diabetic neuropathy presented to the hospital with a chief complaint of slurred speech/left facial droop. Symptoms improved. Admitted for TIA workup. 1.TIA: Patient currently symptoms resolved. Nonfocal examination. Carotid dupplex, echo PT/OT Neuro checks Troponin [id number] continue aspirin statin. Diabetes: Hold home metformin. Insulin sliding scale. Hypertension/hyperlipidemia: Continue amlodipine ,lisinopril.
[2020-09-24 08:08] LABS: Basophils Absolute Auto 0.1 X10*3/uL (0.0-0.2); Basophils Percent Auto 0.6 % (0-2); Eosinophils Absolute Auto 0.1 X10*3/uL (0.0-0.4); Eosinophils Percent Auto 1.1 % (0-4); Hematocrit 47.7 % (42-52); Hemoglobin 15.2 g/dl (14.0-18.0); Imm Gran Abs Auto 0.04 X10*3/uL (0.00-0.03); Imm Gran Pct Auto 0.5 % (0.0-0.4); Lymphocytes Absolute Auto 2.3 X10*3/uL (1.2-4.9); Lymphocytes Percent Auto 25.8 % (20-40); Mean Corpuscular HGB Conc 31.9 g/dl (31.0-36.0); Mean Corpuscular Hemoglobin 27.9 pg (27.0-33.0); Mean Corpuscular Volume 87.7 fL (80-98); Mean Platelet Volume 10.8 fL (9.4-12.4); Monocytes Absolute Auto 0.8 X10*3/uL (0.1-1.2); Monocytes Percent Auto 8.9 % (2-11); Neutrophils Absolute Auto 5.6 X10*3/uL (2.0-8.3); Neutrophils Percent Auto 63.1 % (45-73); Platelet Count 205 X10*3/uL (160-400); Red Blood Count 5.44 X10*6/uL (4.60-5.80); Red Cell Distribution Width 11.9 % (11.0-16.0); White Blood Count 8.9 X10*3/uL (4.8-10.8)
[2020-09-24 08:33] LABS: Anion Gap 11 (12-20); Blood Urea Nitrogen 12 mg/dL (9-16); Carbon Dioxide 28 mmol/L (22-29); Chloride 104 mmol/L (96-108); Cholesterol 129 mg/dL; Creatinine Clr Calc Pharmacy 66.9; Estimated Glomerular Filt Rate > 60; Glucose Random 140 mg/dL (60-115); HDL Cholesterol 36 mg/dL; LDL Cholesterol Calculated 68 mg/dl; Potassium 4.1 mmol/L (3.3-5.1); Sodium 139 mmol/L (135-145); Triglycerides 127 mg/dL
[2020-09-24 08:34] LABS: Glucose, Whole Blood 140 mg/dL (60-115)
[2020-09-24] MEDS: Aspirin Enteric Coated 81 MG TABLET.DR PO (08:37)
[2020-09-24] MEDS: traMADoL HCL 50 MG TABLET PO ×2 (08:37→20:44)
[2020-09-24] MEDS: Docusate Sodium 100 MG CAPSULE PO ×2 (08:37→20:44)
[2020-09-24] MEDS: amLODIPine Besylate 5 MG TABLET PO (08:38)
[2020-09-24] MEDS: TiZANidine HCL 4 MG TABLET PO ×2 (08:38→14:45)
[2020-09-24] MEDS: Gabapentin 100 MG CAPSULE PO ×2 (08:38→20:44)
[2020-09-24] MEDS: Enalapril Maleate 10 MG TABLET 20 MG PO (08:38)
--- NOTE | 2020-09-24 09:40 | CA_ITS ---
Transthoracic Echocardiogram Patient (Last, First, Middle): Jono Lua, Gender: Male Date of : 1945 Age: 75 Procedure Date: 09/24/2020 Procedure Type: Transthoracic Echocardiogram Location: S3E Height: 180.34 cm Weight: 81.65 kg BSA: 2.02 m2 Heart Rate: bpm BP: 140 / 77 mmHg Ice Cream Chef: VALENTINA Arriaga MD: Meenakshi Funk MD Seat Cover Installer: Kian Bartholomew MD Symptoms: TIA Study Quality: Good ECG Rhythm: Sinus Conclusions: - 1. Normal LV systolic function with grade 1 diastolic dysfunction 2. Mild fibrocalcific aortic valve changes noted with trivial aortic regurgitation 3. Moderate atherosclerotic plaque noted in the ascending aorta 4. No pericardial effusion Findings Left Ventricle Normal left ventricular size, thickness, and systolic function. The visually estimated ejection fraction is between 55-60%. Spectral Doppler is indicative of an impaired relaxation filling pattern. E/E prime ratio is <8, consistent with normal filling pressures. Evidence suggests grade I (mild) diastolic dysfunction. Atria Both atria are normal in size. Interatrial shunt cannot be excluded. Aortic Valve There is mild calcification of the aortic valve. There is no aortic valve stenosis. There is trace (trivial) aortic valve regurgitation. Mitral Valve There is mild anterior and posterior mitral leaflet thickening. There is mild mitral annular calcification. There is trace mitral valve regurgitation. There is no mitral valve stenosis. Pulmonic Valve The pulmonic valve was not well visualized. Tricuspid Valve Likely normal tricuspid valve structure and function. Tricuspid regurgitation envelope is inadequate for calculation of right ventricular systolic pressure. Great Vessels All visible segments of the aorta are normal in size. The pulmonary artery was not well visualized. Moderate plaque is seen in the sino tubular ridge. Venous The inferior vena cava is normal in size and collapses greater than 50% with inspiration. Pericardium/Pleural There is no evidence of pericardial effusion. Prior Study Comparison No prior study available for comparison. Measurements 2D Linear Measurements RVIDd: 2.95 RVIDd Index: 1.46 IVSd: 0.98 0.6-0.9/0.6-1.0 cm LVIDd: 4.46 3.9-5.3/4.2-5.9 cm LVIDd Index: 2.21 2.4-3.2/2.2-3.1 cm/m2 LVIDs: 3.32 2.0-3.6 cm LVPWd: 1.23 0.7-1.1 cm Ao Root: 3.10 2.1-3.5 cm LA Diam: 4.00 2.7-3.8/3.0-4.0 cm LAIDs Index: 1.98 1.5-2.3 cm/m2 LV Mass: 216.48 67-162/88-224 g LV Mass Index: 107.17 43-95/49-115 g/m2 LVOT Diam: 2.20 3.0+(-)1.3 cm 2D Systolic Function EF 4C: 59.10 >55% EF 2C: 41.00 >55% Mitral Valve MV Pk E: 0.49 MV PK A: 0.84 MV Decel Time: 297.00 E/A: 0.60 E'Lateral: 6.85 E'Medial: 5.11 E/E' Med: 9.60 E/E' Lat: 7.20 Aortic Valve AoV Pk Carlos: 1.49 AoV Mn Carlos: 1.08 AoV VTI: 0.31 AoV Pk Grad: 9.00 Aov Mn Grad: 5.00 PETROS Cont.VTI: 1.94 LVOT LVOT Pk Carlos: 0.84 LVOT Mn Carlos: 0.61 LVOT VTI: 0.16 LVOT Pk Grad: 3.00 LVOT Mn Grad: 2.00 LVOT Diam: 2.20 LVOT Area: 3.80 Diastolic Function MV Pk E: 0.49 MV Pk A: 0.84 E/A: 0.60 E'Medial: 5.11 E/E' Med: 9.60 E' Laterial: 6.85 E/E' Lat: 7.20 Tricuspid Valve RA Press: 3.00 Great Vessels Aorta Ao Root-2D: 3.10 2.0-3.7 cm Ao Asc: 3.40 2.1-3.4 cm Ao Arch: 2.50 Updated in Other Vendor System with Status of Final Kian Bartholomew MD electronically signed on 09/24/2020 4:12:23 PM with status of Final
--- NOTE | 2020-09-24 15:09 | MHC.STROKE ---
09/23/20 1527 EMS PRE-NOTIFIED ? TIA, ARRIVED 1534. SLURRED SPEECH AND FACIAL DROOP WHICH LASTED 10 MINUTES. ONSET 09/23/20 AT 1450. NIHSS = 0 TIA, EXCLUDED FROM TPA ([facility]) BASED ON NIHSS = 0. I MET WITH THE PATIENT TODAY AND STROKE EDUCATION PROVIDED WITH [place]OREAN BOOKLET. HE DID NOT WANT AN BUSINESS ANALYSIS PROFESSIONAL, HE UNDERSTOOD ME AND REMEMBERED DR HURTADO'S VISIT. REVIEWED THIS WITH THE RN RODNEY. PT IS RECOMMENDING OP SERVICES.
--- NOTE | 2020-09-24 16:03 | MHC.CM.PN ---
NURSE SMALL STOCK FACER NOTE ELECTRONIC MEDICAL RECORD REVIEWED ALONG WITH CASE DISCUSSED WITH STAFF NURSE , PATIENT WAS SLEEPING OR DOWN FOR TESTS TO-DAY AND UNABLE TO SPEAK WITH HIM, I SPOKE WITH HIS DTR shauna rose [phone] AND RECOMENDED THAT I Call his primary day care assistant trish solis - she reported that he is dependent on his income tax administrator for bathing ,dressing needs assistance , and they help him get out of/into bed, on commode uses walker with someone assisting him with him he has hx. of dementia diabites diabetic neuropathy and htn professional application designer check his poc and manage his medications and administer them to him family or professional application designer transport to medical appointments DISCHARGE PLAN HOME WITH RESUMPTION OF HIS DIRECTOR COMPLIANCE SERVICES WITH NO ADDITIONAL HELP VS HOME WITH [facility] FOR [facility] HOME PT SERVICES , AWAITING ALL OF THE CONSULTS AND PT/OT EVALUATIONS, INTERNAL CONTROLS MANAGER TO FOLLOW CLOSELY TO IMPLEMENT THE DISCHARGE PLAN ,
[2020-09-24 16:51] LABS: Glucose, Whole Blood 171 mg/dL (60-115)
[2020-09-24] MEDS: Insulin Lispro 100 UNIT/ML 3 ML VIAL SUBCUT (17:13)
--- NOTE | 2020-09-24 17:58 | P.CNNE_ITS ---
History of Present Illness Data of Consult Service Date: 09/24/20 Primary Care Provider: [facility] HPI Reason for consult: Transient facial droop and slurring of speech This is a 75-year-old man with a history of hypertension diabetes hyperlipidemia who had a stroke in [place] a few years ago of resented with a 15 min. episode of transient right facial droop and slurring of speech, which has clear ed and his back to his baseline. He had a CT scan of the head which was negative for any acute findings. Carotid Doppler is pending. Review of Systems Eyes: Eyes: Reports no additional eye complaints ENT: Reports system reviewed and no additional complaints, except as documented and Reports Normal hearing present Cardiovascular: Cardiovascular: Reports no additional cardiovascular complaints Respiratory: Respiratory: Reports no additional respiratory complaints Gastrointestinal: Gastrointestinal: Reports no additional gastrointestinal complaints Genitourinary: Genitourinary: Reports no additional male genitourinary complaints Musculoskeletal: Musculoskeletal: Reports no additional musculoskeletal complaints Integumentary/Breasts: Skin/Breast: Reports system reviewed and no additional complaints, except as docu Neurologic: Reports as per HPI and Reports Normal hearing present Psychiatric: Psychiatric: Reports as per HPI Endocrine: Endocrine: Reports no additional endocrine complaints Hematologic/Lymphatic: Hematologic/Lymphatic: Reports no additional hematologic/lymphatic complaints Allergic/Immunologic: Allergic/Immunologic: Reports no additional allergic/immunologic complaints [facility] Past Medical History Medical History Dementia Diabetes Diabetic neuropathy GERD (gastroesophageal reflux disease) High cholesterol Hypertension Social History Social History Patient Tobacco Use Status: Former Tobacco user Tobacco use type: Cigarette Advance Directives: No Advance Directives Information Provided: No Meds Allergies Allergy/AdvReac Type Severity Reaction Status Date / Time No Known Allergies Allergy Unverified 11/21/19 15:41 [No Known Allergies*] Active Medications: Current Medications Generic Name Dose Route Start Last Admin Trade Name Freq PRN Reason Stop Dose Admin Acetaminophen 650 mg 09/23/20 19:49 Acetaminophen 325 Mg Tablet PO Q6H PRN Pain, Mild (Pain Scale 1-3) Amlodipine Besylate 5 mg 09/24/20 09:00 09/24/20 08:38 Amlodipine Besylate 5 Mg Tablet PO 5 mg DAILY CHARLY Administration Protocol Aspirin 81 mg 09/24/20 09:00 09/24/20 08:37 Aspirin Enteric Coated 81 Mg Tablet. PO 81 mg DAILY CHARLY Administration Atorvastatin Calcium 10 mg 09/23/20 21:00 09/23/20 22:30 Atorvastatin Calcium 10 Mg Tablet PO 10 mg BEDTIME CHARLY Administration Bisacodyl 5 mg 09/23/20 19:52 Bisacodyl 5 Mg Tablet. PO BEDTIME PRN Constipation Docusate Sodium 100 mg 09/23/20 21:00 09/24/20 08:37 Docusate Sodium 100 Mg Capsule PO 100 mg BID CHARLY Administration Enalapril Maleate 20 mg 09/24/20 09:00 09/24/20 08:38 Enalapril Maleate 10 Mg Tablet PO 20 mg DAILY CHARLY Administration Protocol Gabapentin 100 mg 09/23/20 21:00 09/24/20 08:38 Gabapentin 100 Mg Capsule PO 100 mg BID CHARLY Administration Insulin Human Lispro 0 unit 09/23/20 21:00 09/24/20 17:13 Insulin Lispro 100 Unit/Ml 3 Ml Vial SUBCUT 2 unit QIDACHS [facility] Administration Protocol Melatonin 6 mg 09/23/20 19:49 Melatonin 3 Mg Tablet PO BEDTIME PRN Insomnia Omeprazole 20 mg 09/24/20 06:30 09/24/20 17:13 Omeprazole 20 Mg Capsule. PO 20 mg BID@0630,9250 [facility] Administration Pharmacy Consult 1 each 09/23/20 16:19 Consult Rx Perform Med Rec MISCELLANE ONCE PRN Consult order Sodium Chloride 3 ml 09/24/20 00:00 09/24/20 14:46 0.9 % Sodium Chloride Flush 3 Ml Syringe IVFLUSH 3 ml QSHIFT [facility] Administration Tizanidine HCl 4 mg 09/24/20 09:00 09/24/20 14:45 Tizanidine Hcl 4 Mg Tablet PO 4 mg BID@,15 CHARLY Administration Tramadol HCl 50 mg 09/23/20 21:00 09/24/20 08:37 Tramadol Hcl 50 Mg Tablet PO 50 mg BID CHARLY Administration Home Medications Medication Instructions Recorded Confirmed Last Taken Type amlodipine 1 tab PO DAILY 09/23/20 09/23/20 09/23/20 History aspirin 1 tab PO DAILY 09/23/20 09/23/20 09/23/20 History bisacodyl 1 tab PO BEDTIME PRN 09/23/20 09/23/20 Unknown History docusate sodium 1 cap PO BID 09/23/20 09/23/20 09/23/20 History enalapril maleate 1 tab PO DAILY 09/23/20 09/23/20 09/23/20 History gabapentin 1 cap PO BID 09/23/20 09/23/20 09/23/20 History metformin 1 tab PO QAM 09/23/20 09/23/20 09/23/20 History omeprazole 1 cap PO BID@0630,1630 09/23/20 09/23/20 09/23/20 History simvastatin 1 tab PO BEDTIME 09/23/20 09/23/20 09/22/20 History tizanidine 1 tab PO BID@09,15 09/23/20 09/23/20 09/23/20 History tramadol 1 tab PO BID 09/23/20 09/23/20 09/23/20 History Physical Exam Vital Signs: Vital Signs: Last Vital Signs Temp 97.5 F 09/24/20 15:17 Pulse 69 09/24/20 15:17 Resp 14 09/24/20 15:17 BP 123/72 09/24/20 15:17 Pulse Ox 96 09/24/20 15:17 Body Mass Index 25.1 Const: General: cooperative, comfortable, no acute distress, well developed, alert and awake Nutritional Appearance: well nourished Orientation/con sciousness: oriented to person, oriented to place and oriented to time Li mitations: no limitations HENMT: Head: Yes normal to inspection, Yes normocephalic and Yes atraumatic Ears: hearing grossly normal bilaterally General nose exam: Normal external nose present Face and sinus: Yes normal facial exam Mouth: Normal oral and palatal mucosa present Eyes: General: appearance normal, both eyes and all related structures Visual Liz: normal visual liz by confrontation Alignment and Position: alignment normal Periorbital: periorbital findings normal Eyelids: Yes eyelids normal Conjunctivae: conjunctivae normal Sclerae: sclerae normal Corneas: corneas normal Pupils: Equal, round and reactive pupils present and Pupil accommodation reflex normal EOM: EOMs intact bilaterally Direct Ophthalmoscopy: normal light reflex Neck: Neck: Yes normal visual inspection, Yes full ROM and Yes no meningeal signs Thyroid: Thyroid normal Carotids: normal carotid upstroke and bounding pulses Chest: Chest palpation & inspection: normal inspection of the chest Resp: Effort & Inspection: normal respiratory effort Auscultation: clear to auscultation bilaterally Cardio: Rate: regular rate Rhythm: regular rhythm Heart sounds: S1 normal heart sound present and S2 normal heart sound present Peripheral pulses: Peripheral pulses 2+ throughout GI: Inspection: Yes normal to inspection Percussion: Yes normal to percussion Auscultation: normal bowel sounds Rectal Exam - Male: Yes deferred Back/Spine/Pelvis: Cervical Spine: normal cervical lordosis and cervical ROM normal Thoracic/Lumbar Spine: thoracic and lumbar spine normal to inspection Skin: General skin exam: no rashes or lesions noted Neuro: General: oriented to person, oriented to place, oriented to time, gait normal, tone normal, moves all extremities, Normal light touch and pain sensation, no meningeal signs, no focal motor deficits, CN's II-XI intact bi laterally, normal sensation to monofilament and deep tendon reflexes 2+ bilaterally Cranial nerves: Yes CN's II-XII intact bilaterally, Yes Equal, round and reactive pupils present, Yes Bilaterally intact EOM present, Yes Nystagmus not present, Yes Normal facial strength present, Yes Midline tongue present, Yes Normal gag reflex present, Yes Symmetric palate elevation present, Yes Normal hearing present and Yes Ability to bilaterally rotate head present Cognition (Neuro): normal cognition Speech: Other speech findings present (Neuro) Gait exam (Neuro): Normal gait present Motor exam (neuro): 5/5 motor strength present throughout, Pronator motor function not present, no tremor noted, no asterixis, Motor fasciculations not present, Normal motor muscle tone present throughout and Motor abnormalities not present Sensory Exam: Bilaterally intact graphesthesia Deep tendon reflexes (DTR's): Right triceps reflex intensity grade: 2+, Left triceps reflex intensity grade: 2+, Rt Biceps (C5, C6): 2+, Left biceps reflex intensity grade: 2+, Right brachioradial is reflex intensity grade: 2+, Left brachioradialis reflex intensity grade: 2+, Right patellar reflex intensity grade: 2+, Left patellar reflex intensity grade: 2+, Right ankle reflex intensity grade: 2+ and Left ankle reflex intensity grade: 2+ Plantar Reflex Responses: downgoing: right, left and bilateral Coordination: [id number] test normal, [id number] test normal, tandem gait normal and Romberg test negative Pupils: Normal pupillary reac tivity/response: bilateral Extrem: General: Yes normal to inspection, Yes normal exam except as noted and Yes no pedal edema Psych: Appearance: grossly normal Mental Status: mental status grossly normal Speech and movement: Normal speech and movement present and Clear speech present Affect: normal affect Attitude: cooperative Thought process: Normal thought process present Results Labs CBC & Chem 7: 09/24/20 07:51 09/24/20 07:51 Labs: Short CBC 09/24/20 Range/Units 07:51 WBC 8.9 (4.8-10.8) X10*3/uL Hgb 15.2 (14.0-18.0) g/dl Hct 47.7 (42-52) % Plt Count 205 (160-400) X10*3/uL [facility] 09/24/20 07:51 Sodium 139 Potassium 4.1 Chloride 104 Carbon Dioxide 28 BUN 12 Creatinine 1.00 Calcium 10.0 Assessment and Plan (1) Transient cerebral ischemia: Status: Acute Check carotid Doppler. Blood pressure control. Aspirin 81 mg a day Procedures Date of Service Date of Service: 09/24/20
[2020-09-24 20:21] LABS: Glucose, Whole Blood 134 mg/dL (60-115)
[2020-09-24] MEDS: Atorvastatin Calcium 10 MG TABLET PO (20:44)
[2020-09-25 03:25] VITALS: BP 158/88; PULSE 62; RESP 18; TEMP 36.1; O2SAT 96
[2020-09-25] MEDS: Omeprazole 20 MG CAPSULE.DR PO (05:45)
[2020-09-25 07:36] VITALS: BP 142/85; PULSE 73; RESP 19; TEMP 36.7; O2SAT 97
[2020-09-25 07:39] LABS: Glucose, Whole Blood 135 mg/dL (60-115)
[2020-09-25 08:04] VITALS: BP 142/85; PULSE 73
[2020-09-25] MEDS: amLODIPine Besylate 5 MG TABLET PO (08:04)
[2020-09-25] MEDS: Enalapril Maleate 10 MG TABLET 20 MG PO (08:04)
[2020-09-25] MEDS: Gabapentin 100 MG CAPSULE PO (08:04)
[2020-09-25] MEDS: Aspirin Enteric Coated 81 MG TABLET.DR PO (08:05)
[2020-09-25] MEDS: 0.9 % Sodium Chloride Flush 3 ML SYRINGE IVFLUSH (08:05)
[2020-09-25] MEDS: Docusate Sodium 100 MG CAPSULE PO (08:05)
[2020-09-25] MEDS: traMADoL HCL 50 MG TABLET PO (08:05)
[2020-09-25] MEDS: TiZANidine HCL 4 MG TABLET PO ×2 (08:07→14:31)
[2020-09-25 11:39] LABS: Glucose, Whole Blood 141 mg/dL (60-115)
--- NOTE | 2020-09-25 11:56 | MHC.CM.PN ---
HCP COMPLETED AND COPY NOW IN CHART. HCP FAXED INTO [facility] TO HOME TODAY WITH RESUMPTION OF HIS SERVICES.
[2020-09-25 12:12] VITALS: BP 142/85; PULSE 73
--- NOTE | 2020-09-25 12:23 | MHC.SLORD ---
Speech Language Pathology Order Status: DAY TRADER checked in with RN RE: tolerance of diet. Per RN, pt having no difficulties though decreased appetite. Pt appears to be on appropriate diet consistencies at this time. Continue to recommend GROUND/MECH (NDD2) solids and THIN liquids with PILLS WHOLE IN LIQUID. If pt's dentures become available during hospitalization, recommend diet UPGRADE to REGULAR SOLIDS.
--- NOTE | 2020-09-25 15:43 | MHC.CM.PN ---
NURSE ACTING SECTION CHIEF NOTE ELECTRONIC MEDICAL RECORD REVIEWED . ALONG WITH TALKING WITH S NOT BEEN SEEN MY A STAFF NURSE , MET WITH PATIENT AND HIS DAUGHTER CHARAN PATIENT HAS NOT BEEN SEEN BY A PCP IN SOME TIME AND THE LAST DOCTOR HE WAS ASSIGNED HAS LEFT THE PRACTICE FAMILY REPORTS HE HAS APPOINTMENT WITH NEW PCP IN December CASE MANAGEEMENT OFFICE CALLED AND WAS ABLE TO GET HIM A APPOINTMENT FOR OCTOBER 23 THE EARLIEST. I SPOKE WITH OUR DOT [facility] AND THEY REPORTED THAT THEY TITO NOT SEE A PATIENT UNIT HE HAS BEEN SEEN AND ASSESSED BEFORE THEY CAN GO OUT . I LET THE PATIENT AND FAMILY KNOW. WELL THE HOSPITLAIST / HE CAN NOT HAVE OUTPATIENT PT UNTIL HE IS SEEN BY PCP AND THE PCP WRITES REFERRAL FOR OUTPATIENT PT [place] WAS ALSO TOLD TO THE FAMILY AND TO THE [facility] DISCHARGE PLAN HOME WITH SON AND TWO DAUGHTER WHOM LIVE ELSEWHERE BUT ARE HIS PATCHER BOWLING BALL THEY REPORTED HE IS NEVER LEFT ALONE I TRIED CALLING [facility] DIRECTLY SPOKE WITH MADHU AND SHE REPROTED HE IS NOT A [facility] AL[facility] CLIENT AND TO TRY [employer] I TRIED CALLING [phone] AND WAS ABLE TO REACH ANYONE
[2020-09-25 16:00] VITALS: BP 125/72; PULSE 74; RESP 14; TEMP 36.9; O2SAT 96
--- NOTE | 2020-09-25 16:09 | P.DS_ITS ---
DS: Providers Provider Date of Service: 09/23/20 Date of admission: 09/23/20 19:49 Primary care physician: [facility] Consults: 09/23/20 19:50 Consult to Neurology Routine Consulting Provider: Birgit Osuna Reason for consultation: tia 09/24/20 08:06 Consult to Neurology Routine Consulting Provider: [facility] Reason for consultation: tia Has provider been notified: No DS: Diagnosis Discharge Diagnosis (1) Transient cerebral ischemia: Status: Acute DS: Medications Discharge Medications Home Medications: Home Medications Medication Instructions Recorded Confirmed amlodipine 1 tab PO DAILY 09/23/20 09/23/20 aspirin 1 tab PO DAILY 09/23/20 09/23/20 bisacodyl 1 tab PO BEDTIME PRN 09/23/20 09/23/20 docusate sodium 1 cap PO BID 09/23/20 09/23/20 enalapril maleate 1 tab PO DAILY 09/23/20 09/23/20 gabapentin 1 cap PO BID 09/23/20 09/23/20 metformin 1 tab PO QAM 09/23/20 09/23/20 omeprazole 1 cap PO BID@0630,1630 09/23/20 09/23/20 simvastatin 1 tab PO BEDTIME 09/23/20 09/23/20 tizanidine 1 tab PO BID@09,15 09/23/20 09/23/20 tramadol 1 tab PO BID 09/23/20 09/23/20 DS: Summary Hospital Course Hospital Course: 75-year-old male with a past medical history of hypertension, hyperlipidemia, diabetes, GERD, diabetic neuropathy presented to the hospital with a chief complaint of slurred speech; symptoms started this afternoon lasted for about an hour at the same time family also noted left facial droop; subsequently came to the ER for further evaluation. Denied any chest pain palpitations. But reported mild dizziness and generalized weakness. Denies any numbness tingling. Denies any recent travel or sick contacts. Denies any fever chills cough, denies any GI or symptoms. Review of all other systems is negative except mentioned above. Hospital Course : Patient came with TIA-symptom resolved spontaneously. Seen by neuro and carotid and echo seems fine, patient seems to be significantly improved. Going home with home medications. Further management outpatient as per PCP. Patient was also seen by PT: Recommended home PT and VNA but patient does not have PCP and family's saying they can take care of him at home and was taking home. They are going to arrange PCP appointment earlier, daughter will the is saying that patient has [employer] as well as the family around so they are comfortable taking him home. Further management outpatient as per PCP. Above management discussed with the patient and his daughter miss Jain in detail length they both understand and in agreement with the above plan, time spent 50 minutes and 50% time spent on counseling. Significant findings: As above. Procedures performed: None. Treatment and response: As above. Complications: None. Time Spent with Patient Time attestation: Total time spent providing and/or coordinating discharge services: Discharge coordination time: Greater than 30 minutes Quality: Stroke Does the patient have a stroke diagnosis?: No Physical Exam Vital Signs: Vital Signs: Last Vital Signs Temp 98.1 F 09/25/20 07:36 Pulse 73 09/25/20 12:12 Resp 19 09/25/20 07:36 BP 142/85 H 09/25/20 12:12 Pulse Ox 97 09/25/20 07:36 Body Mass Index 25.1 Physical exam: Gen: Appears be in no acute distress HEENT: NCAT, Moist mucosa. Pulmonary: Vesicular breath sounds, fair air entry CVS: Normal S1-S2 Abdomen: BS+, Soft, Nontender Extremities: Warm well perfused Neuro: Alert and awake. Nonfocal DS: Data Data Completed and Pending Labs on day of discharge: Laboratory Results - last 24 hr 09/24/20 09/24/20 09/25/20 16:26 20:17 07:34 POC Glucose 171 H 134 H 135 H 09/25/20 11:35 POC Glucose 141 H Discharge Plan Discharge Patient Disposition: Home, Self-Care Discharge Diagnosis: TIA Referrals: [facility] [Primary Care Provider] - 1 Week Discharge Medications: Continued tizanidine 4 mg tablet 1 tab PO BID@,15 RF: 0 enalapril maleate 20 mg tablet 1 tab PO DAILY RF: 0 amlodipine 5 mg tablet 1 tab PO DAILY RF: 0 aspirin 81 mg tablet,delayed release (DR/EC) 1 tab PO DAILY RF: 0 tramadol 50 mg tablet 1 tab PO BID RF: 0 simvastatin 20 mg tablet 1 tab PO BEDTIME RF: 0 docusate sodium 100 mg capsule 1 cap PO BID RF: 0 omeprazole 20 mg capsule,delayed release(DR/EC) 1 cap PO BID@0630,1630 RF: 0 bisacodyl 5 mg tablet,delayed release (DR/EC) 1 tab PO BEDTIME PRN (Reason: Constipation) RF: 0 gabapentin 100 mg capsule 1 cap PO BID RF: 0 metformin 500 mg tablet extended release 24 hr 1 tab PO QAM RF: 0 Discharge Orders: Discharge Order (Routine); Ordered 09/25/20 Ordered By: Meenakshi Funk Diet: advance to usual diet Activity on Discharge: As tolerated Stand Alone Forms: Patient Portal Discharge page Care Plan Goals: Patient came with TIA-symptom resolved spontaneously. Seen by neuro and carotid and echo seems fine, patient seems to be significantly improved. Going home with home medications. Further management outpatient as per PCP. Patient was also seen by PT: Recommended home PT and VNA but patient does not have PCP and family's saying they can take care of him at home and was taking home. They are going to arrange PCP appointment earlier, daughter will the is saying that patient has [employer] as well as the family around so they are comfortable taking him home. Further management outpatient as per PCP. Health Concerns: As above. Plan of Treatment: As above. Assessment: As above. Discharge Date/Time: 09/25/20 16:51
== END 2020-09-25 16:51 | disposition home or self-care (01) ==
LOC: HO.ED 18:13 → HO.EDOVER 09-24 07:16 → HO.S3 09-24 07:16
PROVIDERS: Emergency Medicine; Nurse Practitioner Family; Admitting Provider Hospitalist; Emergency Provider Emergency Medicine; Visit Provider Internal Medicine
DX: G45.9 Transient cerebral ischemic attack, unspecified (principal); I10 Essential (primary) hypertension; E11.40 Type 2 diabetes mellitus with diabetic neuropathy, unspecified; E78.5 Hyperlipidemia, unspecified; E78.00 Pure hypercholesterolemia, unspecified; F03.90 Unspecified dementia, unspecified severity, without behavioral disturbance, psychotic disturbance, mood disturbance, and anxiety; K21.9 Gastro-esophageal reflux disease without esophagitis; Z87.891 Personal history of nicotine dependence; Z79.899 Other long term (current) drug therapy
CPT/HCPCS: 36415; 70450; 71046; 80048; 80061; 81003; 82550; 82947; 83735; 84100; 84443; 84484; 85025; 85610; 85730; 87635; 92610; 93005; 93306; 93880; 97110; 97116; 97161; 97166; 99218; 99285

== ENCOUNTER 2020-11-03 10:00 | Emergency (ER) | payer MEDICARE, MEDICAID, SELFPAY ==
--- NOTE | ~2020-11-03 | XR_ITS ---
EXAMINATION: XR CHEST CLINICAL INFORMATION: AMS. COMPARISON: Chest 09/23/2020. TECHNIQUE: AP upright and lateral views (3 images) of the chest are obtained. FINDINGS: The heart is normal in size. There is no congestion or focal consolidation. 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 XR/XR chest 2V IMPRESSION: No acute cardiopulmonary process.
--- NOTE | ~2020-11-03 | CT_ITS ---
EXAMINATION: CT HEAD WITHOUT CONTRAST CLINICAL INFORMATION: Increased confusion since yesterday COMPARISON: Previous head CT most recent August 2020 TECHNIQUE: Contiguous axial imaging was performed from the skull base to vertex without intravenous administration of contrast. Exam is limited due to motion artifact. This CT examination was performed using dose optimization techniques as appropriate, variously including the following: *Automated exposure control *Adjustment of mA and/or kV according to patient size (this includes techniques or standardized protocols for targeted exams where dose is matched to indication/reason for exam; i.e. extremities or head) *Use of iterative reconstruction technique DLP: 1017 mGy-cm FINDINGS: There is no evidence of an extra-axial collection. There is no evidence of intra-axial or extra-axial hemorrhage. There is age-appropriate prominence of the ventricles and extra-axial CSF spaces. There is nonspecific periventricular white matter disease. No mass, mass effect or infarct is seen. Review at bone windows is normal. No skull fracture is seen. Paranasal sinuses, mastoid air cells and middle ears are clear. CT/CT head/brain wo con IMPRESSION: No acute findings. No change from previous exam.
--- NOTE | ~2020-11-03 | CT_ITS ---
EXAMINATION: CT ABDOMEN AND PELVIS WITHOUT CONTRAST CLINICAL INFORMATION: Abdominal pain and nausea/vomiting. COMPARISON: CT abdomen and pelvis 05/18/2015 TECHNIQUE: Multidetector volumetric imaging was performed from the superior aspect of the liver through the pubic symphysis. Sagittal and coronal reformatted images were obtained on the technologist's workstation. This CT examination was performed using dose optimization techniques as appropriate, variously including the following: *Automated exposure control *Adjustment of mA and/or kV according to patient size (this includes techniques or standardized protocols for targeted exams where dose is matched to indication/reason for exam; i.e. extremities or head) *Use of iterative reconstruction technique DLP: 719 mGy-cm FINDINGS: LUNG BASES: There is mild dependent atelectasis at the lung bases. LIVER, GALLBLADDER, AND BILIARY TREE: The liver is normal in size, shape, and attenuation. No focal hepatic lesion or biliary ductal dilatation is present. The gallbladder is surgically absent. PANCREAS: Unremarkable. SPLEEN: Unremarkable. ADRENAL GLANDS: Unremarkable. KIDNEYS AND URETERS: Bilateral renal cysts are again noted with a significant decrease in size of a lower pole right renal cyst. A left lower pole renal calculus is again noted. There are no apparent ureteral calculi. There is no hydronephrosis. BLADDER: Unremarkable. GASTROINTESTINAL TRACT: There are scattered colonic diverticula. There is no evidence of diverticulitis. The appendix appears normal. The small bowel and stomach are unremarkable. ABDOMINAL WALL: No significant hernia is appreciated. LYMPH NODES: Normal. VASCULAR: There are scattered atherosclerotic calcifications. PELVIC VISCERA: There is an increase in size of the enlarged prostate. OSSEOUS STRUCTURES: There is worsening gbuycreb-ga-ssjkzi degenerative disc disease at L2-L3 with a mild grade 1 retrolisthesis of L2 on L3. Mild spondylosis at the other vertebral levels is unchanged. Bilateral facet arthropathy is noted at multiple levels. There is stable ekrz-qq-cwgsqwvi osteoarthritis in both hips and both sacroiliac joints. CT/CT abdomen pelvis wo con IMPRESSION: 1. Colonic diverticulosis without evidence of diverticulitis. 2. Increase in size of enlarged prostate. 3. No acute findings in the abdomen or pelvis.
[2020-11-03 10:11] VITALS: BP 141/74; PULSE 86; RESP 15; TEMP 36.8; O2SAT 95
[2020-11-03 10:21] VITALS: BP 123/77; PULSE 89; RESP 15; TEMP 36.8; O2SAT 100; BMI 29.5
--- NOTE | 2020-11-03 10:31 | ECG_ITS ---
Test Reason : GENERAL MEDICINE Blood Pressure : / mmHG Vent. Rate : 082 BPM Atrial Rate : 082 BPM P-R Int : 144 ms QRS Dur : 080 ms QT Int : 388 ms P-R-T Axes : 044 -43 027 degrees QTc Int : 453 ms Sinus rhythm with Premature atrial complexes Left axis deviation Cannot rule out Anterior infarct (cited on or before 30-SEP-2018) Abnormal ECG When compared with ECG of 23-SEP-2020 16:44, Premature atrial complexes are now Present Referred By: Erika Barrios Electronically Signed By:SAVANNA GREENE
[2020-11-03 11:10] LABS: MANUAL DIFF FLAG NO
[2020-11-03 11:12] LABS: Basophils Absolute Auto 0.1 X10*3/uL (0.0-0.2); Basophils Percent Auto 0.5 % (0-2); Eosinophils Percent Auto 0.2 % (0-4); Hematocrit 45.5 % (42-52); Hemoglobin 14.6 g/dl (14.0-18.0); Imm Gran Abs Auto 0.04 X10*3/uL (0.00-0.03); Imm Gran Pct Auto 0.4 % (0.0-0.4); Lymphocytes Absolute Auto 1.5 X10*3/uL (1.2-4.9); Mean Corpuscular HGB Conc 32.1 g/dl (31.0-36.0); Mean Corpuscular Hemoglobin 27.9 pg (27.0-33.0); Mean Platelet Volume 10.4 fL (9.4-12.4); Monocytes Absolute Auto 0.6 X10*3/uL (0.1-1.2); Monocytes Percent Auto 6.5 % (2-11); Neutrophils Absolute Auto 7.6 X10*3/uL (2.0-8.3); Neutrophils Percent Auto 77.4 % (45-73); Platelet Count 185 X10*3/uL (160-400); Red Blood Count 5.23 X10*6/uL (4.60-5.80); Red Cell Distribution Width 11.9 % (11.0-16.0); White Blood Count 9.8 X10*3/uL (4.8-10.8)
[2020-11-03 11:12] LABS: Glucose Urine UA NEG (NEG); Leukocyte Esterase Urine NEG (NEG); Nitrite Urine NEG (NEG); PH 6.5 (5.0-8.0); Specific Gravity - Urine <= 1.005 (1.005-1.025); Urine Blood NEG (NEG); Urine Ketones NEG (NEG); Urine Protein NEG (NEG-TRACE)
[2020-11-03 11:13] LABS: Appearance Urine CLEAR; Color Urine YELLOW
[2020-11-03 11:20] LABS: INTERNATIONAL NORM RATIO 1.1 (0.9-1.1); Prothrombin Time 12.8 SEC (9.9-13.0)
[2020-11-03 11:34] LABS: Alanine Aminotransferase 20 U/L (0-40); Albumin Level 4.3 g/dL (3.5-5.0); Alkaline Phosphatase 72 U/L (39-117); Anion Gap 11 (12-20); Aspartate Amino Transferase 18 U/L (5-37); Bilirubin Total 1.3 mg/dL (0.0-1.0); Blood Urea Nitrogen 12 mg/dL (9-16); Calcium 9.8 mg/dL (8.4-10.2); Carbon Dioxide 27 mmol/L (22-29); Chloride 101 mmol/L (96-108); Estimated Glomerular Filt Rate > 60; Glucose Random 154 mg/dL (60-115); Potassium 4.6 mmol/L (3.3-5.1); Sodium 134 mmol/L (135-145); Total Protein 6.9 g/dL (6.5-8.0)
[2020-11-03 11:39] LABS: Troponin-I High Sensitivity 32.9 ng/L (<3.5-35.0)
--- NOTE | 2020-11-03 11:47 | ED.AMS ---
HPI - Altered Mental Status General Chief Complaint: General Medical Stated Complaint: bacl pain upon urination x2days Time Seen by Provider: 11/03/20 10:21 Source: patient and EMS Mode of arrival: EMS Limitations: language barrier (Monegasque-speaking) History of Present Illness HPI narrative: 75-year-old male who is Monegasque speaking with his at bedside with a past medical history of dementia, hypertension, hyperlipidemia, GERD, tbu-anqcjqx-yzrnmrjmg diabetes, diabetic neuropathy?and a TIA on 09/23/20 admitted here seen by Neurology had a negative in his carotid Doppler was also negative was currently on a baby aspirin presenting with complaints of worsening confusion over the past 2 days with associated decreased appetite and an episode of nausea/vomiting this morning. He denies any dizziness, chills, headaches, change of vision, paresthesias, chest pain, shortness of breath, dyspnea on exertion, orthopnea, palpitations, abdominal pain, dysuria, hematuria, abnormal penile discharge, diarrhea, constipation, recent falls, recent travel or sick contacts or possible bad food exposure or any other symptoms complaints or concerns at this time. MD complaint: confusion Onset (ago): day(s) (Two days) Timing confirmed by: spouse Severity: mild Consistency of symptoms: constant Context: history of similar presentation and diabetes Associated symptoms: nausea/vomiting and weakness Related Data Home Medications Medication Instructions Recorded Confirmed amlodipine 5 mg tablet 1 tab PO DAILY 09/23/20 09/23/20 aspirin 81 mg tablet,delayed 1 tab PO DAILY 09/23/20 09/23/20 release bisacodyl 5 mg tablet,delayed 1 tab PO BEDTIME PRN 09/23/20 09/23/20 release docusate sodium 100 mg capsule 1 cap PO BID 09/23/20 09/23/20 enalapril maleate 20 mg tablet 1 tab PO DAILY 09/23/20 09/23/20 gabapentin 100 mg capsule 1 cap PO BID 09/23/20 09/23/20 metformin 500 mg tablet,extended 1 tab PO QAM 09/23/20 09/23/20 release 24 hr omeprazole 20 mg capsule,delayed 1 cap PO BID@0630,1630 09/23/20 09/23/20 release simvastatin 20 mg tablet 1 tab PO BEDTIME 09/23/20 09/23/20 tizanidine 4 mg tablet 1 tab PO BID@09,15 09/23/20 09/23/20 tramadol 50 mg tablet 1 tab PO BID 09/23/20 09/23/20 Allergies Allergy/AdvReac Type Severity Reaction Status Date / Time No Known Allergies Allergy Unverified 11/21/19 15:41 [No Known Allergies*] Review of Systems Review of Systems: Constitutional : No Fever, No Chills, No Night Sweats, No Fatigue, No Malaise ENT/Mouth : No Ear Pain, No Nasal Congestion, No Sinus Pain, No sore throat, No Rhinorrhea Eyes: No Eye Pain, No Swelling, No Redness, No Foreign Body, No Discharge, No Vision Changes Cardiovascular : No Chest Pain, No SOB, No Dyspnea on Exertion, No Orthopnea, No Palpitations Respiratory : No Cough, No Sputum, No Wheezing, No Dyspnea Gastrointestinal : Positive nausea/vomiting, No Diarrhea, No Constipation, No abdominal Pain, No Hematochezia, No Melena Genitourinary : No Dysuria, No Urinary Frequency, No Urinary Incontinence, No Urgency, No Flank Pain Musculoskeletal : No joint pain, No Myalgias Skin : No lacerations Neuro : Positive General Weakness and increased confusion, No Focal weakness, No Numbness, No Paresthesias, No Loss of Consciousness, No Dizziness, No Headache Yes all other systems are reviewed and are negative FOR[facility]LY [facility] Past Medical History Attestation statement: The following information was validated with the patient. Medical History Dementia Diabetes Diabetic neuropathy GERD (gastroesophageal reflux disease) High cholesterol Hypertension Social History Social History Patient Tobacco Use Status: Former Tobacco user Tobacco use type: Cigarette Advance Directives: Yes Advance Directives on File: Yes Advance Directives Date on File: 09/28/20 Physical Exam Vital Signs: Vital Signs: Last Vital Signs Temp 98.2 F 11/03/20 14:00 Pulse 86 11/03/20 14:00 Resp 15 11/03/20 14:00 BP 124/82 11/03/20 14:00 Pulse Ox 100 11/03/20 14:00 Body Mass Index 29.5 Vital signs have been reviewed as normal and appeared to be correct. Blood pressure hypertensive 141/74 Heart rate normal. Respiration rate normal. Temperature normal. Oxygen saturation normal. Appearance: Alert. Oriented X3. No acute distress. Head: Normal external exam. Normocephalic. Atraumatic. Able to rotate head bilaterally. Eyes: PERRLA. EOMI. No nystagmus noted. Conjunctiva and sclera normal. Eyelids normal. Corneal reflex normal. ENT: EAC normal. TM's Normal. Hearing normal. Pharynx normal. Uvula midline. tongue midline. Moist mucous membranes. No trismus noted. No drooling noted. No muffled voice noted. No nystagmus noted. Neck: Normal inspection. Neck supple. FROM. No adenopathy. Trachea midline. Thyroid Normal. No meningeal signs. No neck mass noted. CVS: Normal heart rate and rhythm. Heart sound normal. No murmurs noted. Pulses normal throughout. Respiratory: No respiratory distress. Painless inspiration. Breath sounds normal. No wheezes/rales/rhonchi noted. Chest nontender. No accessory muscle usage noted or decreased air movement noted. Abdomen: Soft and nontender. Bowel sounds normal in all 4 quadrants. No distention noted. No organomegaly noted. No visible injury noted. Back: No CVA tenderness. Full range of motion noted. Skin: Skin warm and dry. Normal skin color. Normal skin turgor. No rashes/lesions/lacerations noted. Extremities: No lower extremity edema. Extremities exhibit normal range of motion. Extremities nontender. Able to shrug shoulders bilaterally and keep up against resistance. Neuro: Oriented to self, place and disorientated to time reports its August-September or Oct 2021 . No motor deficit. No sensory deficit. Reflexes normal. Moving all extremities. No focal motor deficits. Cranial nerves II-XI intact bilaterally. Facial strength normal. Normal cognition. Speech normal. Strength 5/5 throughout. No pronator drift. No tremor noted. No fasciculations noted. No rigidity noted. Muscle tone normal throughout. No asterixis noted. Ijulqg-ih-qkvu test normal. Heel to tejeda test normal. Rapid alternating movement upper extremity normal. Rapid alternating movement lower extremity normal. Hand drop from overhead Misses face. NIHSS score 0. Course Course Course Narrative: 10:30am - 75-year-old male who is Monegasque speaking with his at bedside with a past medical history of dementia, hypertension, hyperlipidemia, GERD, npy-nufuqjd-anbzbldyx diabetes, diabetic neuropathy?and a TIA on 09/23/20 admitted here seen by Neurology had a negative in his carotid Doppler was also negative was currently on a baby aspirin presenting with complaints of worsening confusion over the past 2 days with associated decreased appetite and an episode of nausea/vomiting this morning. On Exam patient is alert to self, can identify his in her full name, and reports that he is in [facility] in the emergency department although reports that the month is anywhere from August to October and were in the year of 2021. Otherwise no focal neuro deficits are noted. He reports he cannot ambulate without a walker therefore I did the finger to nose along with the heel to tejeda and patient can move all extremities without any difficulties. He has 5/5 for motor strength. He has full sensation. There are no focal deficits noted. NIH SS score is 0 at this time patient has non disabling symptoms and his symptoms started 2 days ago therefore he is not a candidate for tPA. Plan: Labs, CT scan of brain, CT scan abdomen pelvis without IV contrast, CXR, EKG then re-evaluate Reevaluation(s) Reevaluation #1: - labs return and a sodium of 134. Anion gap 11. Random glucose 154. Total bilirubin 1.3. Negative delta troponin went from 32.9-38.7. UA within normal limits no evidence of UTI. - CT scan of brain within normal limits no acute processes are noted. - CT scan of abdomen and pelvis without IV contrast colonic diverticulosis without evidence of diverticulitis increase in size of enlarged prostate otherwise no other acute processes. And patient noted to have worsening moderate to severe degenerative disc disease at L2/L3 and this could be the reason why his back pain is a little worse today. - patient reports he is currently on tramadol and he normally has symptomatic relief with tramadol therefore will give a dose before his discharge. Otherwise I spoke to the and she feels like the patient can be discharged home in her care she does not feel like the patient needs to be admitted or requiring short-term rehab. I instructed her to return if any new or worsening symptoms to follow up with primary care provider. Patient and at bedside understand and agree to this plan. Time: 15:53 MDM - Altered Mental Status Medical Records Attestation: I reviewed the patient's medical records. Lab Data Attestation: I reviewed the patient's lab results. Result diagrams: 11/03/20 11:04 11/03/20 11:04 Labs: Lab Results 11/03/20 11/03/20 11/03/20 Range/Units 11:04 11:04 11:04 WBC 9.8 (4.8-10.8) X10*3/uL RBC 5.23 (4.60-5.80) X10*6/uL Hgb 14.6 (14.0-18.0) g/dl Hct 45.5 (42-52) % MCV 87.0 (80-98) fL MCH 27.9 (27.0-33.0) pg MCHC 32.1 (31.0-36.0) g/dl RDW 11.9 (11.0-16.0) % Plt Count 185 (160-400) X10*3/uL MPV 10.4 (9.4-12.4) fL Immature Gran % (Auto) 0.4 (0.0-0.4) % Neut % (Auto) 77.4 H (45-73) % Lymph % (Auto) 15.0 L (20-40) % Christian % (Auto) 6.5 (2-11) % Eos % (Auto) 0.2 (0-4) % Baso % (Auto) 0.5 (0-2) % Lymph # (Auto) 1.5 (1.2-4.9) X10*3/uL Christian # (Auto) 0.6 (0.1-1.2) X10*3/uL Eos # (Auto) 0.0 (0.0-0.4) X10*3/uL Baso # (Auto) 0.1 (0.0-0.2) X10*3/uL Abs Immat Gran (auto) 0.04 H (0.00-0.03) X10*3/uL Absolute Neuts (auto) 7.6 (2.0-8.3) X10*3/uL Absolute Nucleated RBC 0.000 (0.0-0.012) X10*3/uL Nucleated RBC % (auto) 0.0 (0.0-0.2) /100WBC PT 12.8 (9.9-13.0) SEC INR 1.1 (0.9-1.1) Sodium 134 L (135-145) mmol/L Potassium 4.6 (3.3-5.1) mmol/L Chloride 101 (96-108) mmol/L Carbon Dioxide 27 (22-29) mmol/L Anion Gap 11 L (12-20) BUN 12 (9-16) mg/dL Creatinine 0.94 (0.5-1.4) mg/dL Estim Creat Clear Calc 72.0 Estimated GFR > 60 Random Glucose 154 H (60-115) mg/dL Calcium 9.8 (8.4-10.2) mg/dL Magnesium 2.0 (1.6-2.6) mg/dL Total Bilirubin 1.3 H (0.0-1.0) mg/dL AST 18 (5-37) U/L ALT 20 (0-40) U/L Alkaline Phosphatase 72 (39-117) U/L Troponin I High Sens (<3.5-35.0) ng/L Total Protein 6.9 (6.5-8.0) g/dL Albumin 4.3 (3.5-5.0) g/dL Urine Color Urine Appearance Urine pH (5.0-8.0) Ur Specific [place] (1.005-1.025) Urine Protein (NEG-TRACE) MG/DL Urine Glucose (UA) (NEG) MG/DL Urine Ketones (NEG) MG/DL Urine Blood (NEG) Urine Nitrite (NEG) Ur Leukocyte Esterase (NEG) 11/03/20 11/03/20 11/03/20 Range/Units 11:04 11:05 14:17 WBC (4.8-10.8) X10*3/uL RBC (4.60-5.80) X10*6/uL Hgb (14.0-18.0) g/dl Hct (42-52) % MCV (80-98) fL MCH (27.0-33.0) pg MCHC (31.0-36.0) g/dl RDW (11.0-16.0) % Plt Count (160-400) X10*3/uL MPV (9.4-12.4) fL Immature Gran % (Auto) (0.0-0.4) % Neut % (Auto) (45-73) % Lymph % (Auto) (20-40) % Christian % (Auto) (2-11) % Eos % (Auto) (0-4) % Baso % (Auto) (0-2) % Lymph # (Auto) (1.2-4.9) X10*3/uL Christian # (Auto) (0.1-1.2) X10*3/uL Eos # (Auto) (0.0-0.4) X10*3/uL Baso # (Auto) (0.0-0.2) X10*3/uL Abs Immat Gran (auto) (0.00-0.03) X10*3/uL Absolute Neuts (auto) (2.0-8.3) X10*3/uL Absolute Nucleated RBC (0.0-0.012) X10*3/uL Nucleated RBC % (auto) (0.0-0.2) /100WBC PT (9.9-13.0) SEC INR (0.9-1.1) Sodium (135-145) mmol/L Potassium (3.3-5.1) mmol/L Chloride (96-108) mmol/L Carbon Dioxide (22-29) mmol/L Anion Gap (12-20) BUN (9-16) mg/dL Creatinine (0.5-1.4) mg/dL Estim Creat Clear Calc Estimated GFR Random Glucose (60-115) mg/dL Calcium (8.4-10.2) mg/dL Magnesium (1.6-2.6) mg/dL Total Bilirubin (0.0-1.0) mg/dL AST (5-37) U/L ALT (0-40) U/L Alkaline Phosphatase (39-117) U/L Troponin I High Sens 32.9 38.7 H* (<3.5-35.0) ng/L Total Protein (6.5-8.0) g/dL Albumin (3.5-5.0) g/dL Urine Color YELLOW Urine Appearance CLEAR Urine pH 6.5 (5.0-8.0) Ur Specific [place] <= 1.005 (1.005-1.025) Urine Protein NEG (NEG-TRACE) MG/DL Urine Glucose (UA) NEG (NEG) MG/DL Urine Ketones NEG (NEG) MG/DL Urine Blood NEG (NEG) Urine Nitrite NEG (NEG) Ur Leukocyte Esterase NEG (NEG) Imaging Data Chest x-ray: Attestation: I personally reviewed and interpreted this imaging study as follows: Radiologist's impression: FINDINGS: The heart is normal in size. There is no congestion or focal consolidation. 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 XR/XR chest 2V IMPRESSION: No acute cardiopulmonary process. CT scan of brain without contrast: Attestation: I personally reviewed and interpreted this imaging study as follows: Radiologist's impression: FINDINGS: There is no evidence of an extra-axial collection. There is no evidence of intra-axial or extra-axial hemorrhage. There is age-appropriate prominence of the ventricles and extra-axial CSF spaces. There is nonspecific periventricular white matter disease. No mass, mass effect or infarct is seen. Review at bone windows is normal. No skull fracture is seen. Paranasal sinuses, mastoid air cells and middle ears are clear. ? CT/CT head/brain wo con IMPRESSION: No acute findings. No change from previous exam. CT scan abdomen pelvis without IV contrast: Attestation: I personally reviewed and interpreted this imaging study as follows: Radiologist's impression: FINDINGS: LUNG BASES: There is mild dependent atelectasis at the lung bases.? LIVER, GALLBLADDER, AND BILIARY TREE: The liver is normal in size, shape, and attenuation. No focal hepatic lesion or biliary ductal dilatation is present. The gallbladder is surgically absent.? PANCREAS: Unremarkable.? SPLEEN: Unremarkable.? ADRENAL GLANDS: Unremarkable.? KIDNEYS AND URETERS: Bilateral renal cysts are again noted with a significant decrease in size of a lower pole right renal cyst. A left lower pole renal calculus is again noted. There are no apparent ureteral calculi. There is no hydronephrosis.? BLADDER: Unremarkable.? GASTROINTESTINAL TRACT: There are scattered colonic diverticula. There is no evidence of diverticulitis. The appendix appears normal. The small bowel and stomach are unremarkable.? ABDOMINAL WALL: No significant hernia is appreciated.? LYMPH NODES: Normal. VASCULAR: There are scattered atherosclerotic calcifications. PELVIC VISCERA: There is an increase in size of the enlarged prostate. OSSEOUS STRUCTURES: There is worsening gtegwaqi-yr-gglqya degenerative disc disease at L2-L3 with a mild grade 1 retrolisthesis of L2 on L3. Mild spondylosis at the other vertebral levels is unchanged. Bilateral facet arthropathy is noted at multiple levels. There is stable blgy-ew-fqhdoixp osteoarthritis in both hips and both sacroiliac joints.? CT/CT abdomen pelvis wo con IMPRESSION: 1. Colonic diverticulosis without evidence of diverticulitis. ? 2. Increase in size of enlarged prostate. ? 3. No acute findings in the abdomen or pelvis. ECG Data ECG #1: Attestation: I personally reviewed and interpreted this ECG as follows: ECG interpretation date: 11/03/20 ECG interpretation time: 10:54 Interpretation: Sinus rhythm with premature atrial complexes with a ventricular rate of 82 with left axis deviation no acute ischemic change are noted. Similar compared to prior EKG on 09/23/2020. Critical Care Time Critical Care Time Critical Care Time: Yes Total Critical Care Time: 60 Attestation: I personally attest to this time spent taking care of the patient Discharge Plan Discharge Clinical Impression: Colon, diverticulosis, Enlarged prostate, Dementia, Degenerative disc disease, lumbar Patient Disposition: Home, Self-Care Instructions: Diverticulosis (ED), Degenerative Disc Disease (ED), Dementia (ED), Enlarged Prostate (BPH) (ED) Prescriptions: No Action tizanidine 4 mg tablet 1 tab PO BID@09,15 RF: 0 enalapril maleate 20 mg tablet 1 tab PO DAILY RF: 0 amlodipine 5 mg tablet 1 tab PO DAILY RF: 0 aspirin 81 mg tablet,delayed release (DR/EC) 1 tab PO DAILY RF: 0 tramadol 50 mg tablet 1 tab PO BID RF: 0 simvastatin 20 mg tablet 1 tab PO BEDTIME RF: 0 docusate sodium 100 mg capsule 1 cap PO BID RF: 0 omeprazole 20 mg capsule,delayed release(DR/EC) 1 cap PO BID@0630,1630 RF: 0 bisacodyl 5 mg tablet,delayed release (DR/EC) 1 tab PO BEDTIME PRN (Reason: Constipation) RF: 0 gabapentin 100 mg capsule 1 cap PO BID RF: 0 metformin 500 mg tablet extended release 24 hr 1 tab PO QAM RF: 0 Referrals: Physician,Unknown [Primary Care Provider] - 2 days (your pcp) Print Language: Monegasque
[2020-11-03 14:00] VITALS: BP 124/82; PULSE 86; RESP 15; TEMP 36.8; O2SAT 100
[2020-11-03 15:03] LABS: Troponin-I High Sensitivity 38.7 ng/L (<3.5-35.0)
[2020-11-03] MEDS: traMADoL HCL 50 MG TABLET PO (16:24)
== END 2020-11-03 16:54 | disposition home or self-care (01) ==
PROVIDERS: Physician Assistant Medical; Emergency Provider Emergency Medicine
DX: K57.30 Diverticulosis of large intestine without perforation or abscess without bleeding (principal); M51.36 Other intervertebral disc degeneration, lumbar region; N40.0 Benign prostatic hyperplasia without lower urinary tract symptoms; F03.90 Unspecified dementia, unspecified severity, without behavioral disturbance, psychotic disturbance, mood disturbance, and anxiety; I10 Essential (primary) hypertension; E11.9 Type 2 diabetes mellitus without complications; E78.5 Hyperlipidemia, unspecified; Z79.82 Long term (current) use of aspirin; Z79.02 Long term (current) use of antithrombotics/antiplatelets; Z79.899 Other long term (current) drug therapy
CPT/HCPCS: 36415; 70450; 71046; 74176; 80053; 81003; 83735; 84484; 85025; 85610; 93005; 99284

== ENCOUNTER → 2021-01-11 11:07 | Outpatient (BNVA) | payer MEDICARE, MEDICAID, SELFPAY | PROVIDERS: Visit Provider Anesthesiology | DX: M48.061 Spinal stenosis, lumbar region without neurogenic claudication (principal); M51.36 Other intervertebral disc degeneration, lumbar region; M47.816 Spondylosis without myelopathy or radiculopathy, lumbar region; G89.4 Chronic pain syndrome | CPT/HCPCS: 99202 ==

== ENCOUNTER → 2021-01-27 11:16 | Outpatient (BNVA) | payer MEDICARE, MEDICAID, SELFPAY | PROVIDERS: PCP Internal Medicine; Visit Provider Anesthesiology | DX: M48.061 Spinal stenosis, lumbar region without neurogenic claudication (principal); M51.36 Other intervertebral disc degeneration, lumbar region; M47.816 Spondylosis without myelopathy or radiculopathy, lumbar region; G89.4 Chronic pain syndrome | CPT/HCPCS: 99212 ==

== ENCOUNTER → 2021-02-10 12:29 | Outpatient (BNVA) | payer MEDICARE, MEDICAID, SELFPAY | PROVIDERS: PCP Internal Medicine; Visit Provider Anesthesiology | DX: Z51.81 Encounter for therapeutic drug level monitoring (principal); M48.061 Spinal stenosis, lumbar region without neurogenic claudication; M51.36 Other intervertebral disc degeneration, lumbar region; M47.816 Spondylosis without myelopathy or radiculopathy, lumbar region; G89.4 Chronic pain syndrome | CPT/HCPCS: 99212 ==

== ENCOUNTER 2021-02-23 06:09 | Outpatient (REF) | payer MEDICARE, MEDICAID, SELFPAY ==
--- NOTE | ~2021-02-23 | FL_ITS ---
EXAMINATION: XR FLUOROSCOPY WITH IMAGES CLINICAL INFORMATION: M48.061 - Spinal stenosis, lumbar region without neurogen COMPARISON: None. TECHNIQUE: Fluoroscopy performed by Dr. Usama Spencer. Fluoroscopy time: 0.5 minutes DAP: 6.01 Gycm2 Images: 2 FINDINGS: There is a transitional vertebral body lumbosacral junction with right hemisacralization and left reed lumbarization. There are spinal needles at outer right neural foramina at 2 and 3 levels above the transitional vertebral body. There is contrast seen in the nerve sheaths and transforaminal epidural extension. No visible vascular communication. Multilevel degenerative changes are present lumbar spine. FL/FL guidance in treatment room IMPRESSION: Fluoroscopy for pain management procedures.
== END 2021-02-23 06:10 | disposition home or self-care (01) ==
LOC: HO.RADIR 06:09
PROVIDERS: Visit Provider Anesthesiology
DX: M48.061 Spinal stenosis, lumbar region without neurogenic claudication (principal); M51.36 Other intervertebral disc degeneration, lumbar region; M47.816 Spondylosis without myelopathy or radiculopathy, lumbar region; G89.4 Chronic pain syndrome
CPT/HCPCS: 64483; 64484; J1100; Q9967

== ENCOUNTER 2021-03-03 10:16 | Emergency (ER) | payer MEDICARE, MEDICAID, SELFPAY ==
--- NOTE | ~2021-03-03 | XR_ITS ---
EXAMINATION: BILATERAL SHOULDERS CLINICAL INFORMATION: Bilateral shoulder pain COMPARISON: None TECHNIQUE: 3 views right shoulder, 3 views left shoulder. The patient was not able to do axillary views. FINDINGS: Left shoulder: Moderate degenerative changes are present in the left shoulder with glenoid and humeral head osteophytes. Moderate degenerative changes are also present at the AC joint. No fractures or dislocations. Right shoulder : Moderate to marked degenerative changes are present in the left shoulder with glenoid and humeral head osteophytes. Some minimal calcification is seen in the supraspinatus tendon. No significant degenerative changes are seen at the AC joint. No fractures or dislocations. XR/XR shoulder LT min 2V IMPRESSION: * Degenerative changes at the glenohumeral joint bilaterally, right greater than left. * Left AC joint degenerative changes. * Mild calcification supraspinatus tendon on right
--- NOTE | ~2021-03-03 | XR_ITS ---
EXAMINATION: BILATERAL SHOULDERS CLINICAL INFORMATION: Bilateral shoulder pain COMPARISON: None TECHNIQUE: 3 views right shoulder, 3 views left shoulder. The patient was not able to do axillary views. FINDINGS: Left shoulder: Moderate degenerative changes are present in the left shoulder with glenoid and humeral head osteophytes. Moderate degenerative changes are also present at the AC joint. No fractures or dislocations. Right shoulder : Moderate to marked degenerative changes are present in the left shoulder with glenoid and humeral head osteophytes. Some minimal calcification is seen in the supraspinatus tendon. No significant degenerative changes are seen at the AC joint. No fractures or dislocations. XR/XR shoulder RT min 2V IMPRESSION: * Degenerative changes at the glenohumeral joint bilaterally, right greater than left. * Left AC joint degenerative changes. * Mild calcification supraspinatus tendon on right
[2021-03-03 10:35] VITALS: BP 130/82; PULSE 82; O2SAT 97
--- NOTE | 2021-03-03 11:49 | ED.EXTPRO ---
HPI - Extremity Problem General Chief complaint: Extremity Injury, Upper Stated complaint: CAMILLA SHOULDER PAIN X'S 2 WEEKS,H/O ARTHRITIS Time Seen by Provider: 03/03/21 11:49 History of Present Illness HPI Narrative: Patient complains of bilateral shoulder pain without injury for several months, no acute change today, no chest pain no neck pain no numbness weakness or tingling Related Data Home Medications Medication Instructions Recorded Confirmed amlodipine 5 mg tablet 1 tab PO DAILY 09/23/20 09/23/20 aspirin 81 mg tablet,delayed 1 tab PO DAILY 09/23/20 09/23/20 release bisacodyl 5 mg tablet,delayed 1 tab PO BEDTIME PRN 09/23/20 09/23/20 release docusate sodium 100 mg capsule 1 cap PO BID 09/23/20 09/23/20 enalapril maleate 20 mg tablet 1 tab PO DAILY 09/23/20 09/23/20 gabapentin 100 mg capsule 1 cap PO BID 09/23/20 09/23/20 metformin 500 mg tablet,extended 1 tab PO QAM 09/23/20 09/23/20 release 24 hr omeprazole 20 mg capsule,delayed 1 cap PO BID@0630,1630 09/23/20 09/23/20 release simvastatin 20 mg tablet 1 tab PO BEDTIME 09/23/20 09/23/20 tizanidine 4 mg tablet 1 tab PO BID@09,15 09/23/20 09/23/20 Previous Rx's Medication Instructions Recorded tramadol 50 mg tablet 50 mg PO BID PRN 30 Days #60 tab 02/10/21 Allergies Allergy/AdvReac Type Severity Reaction Status Date / Time No Known Allergies Allergy Verified 02/23/21 08:56 [No Known Allergies*] Review of Systems Review of Systems: Positive bilateral shoulder pain Negatives are no fever no chills no dizziness no weakness no headache no neck pain no radiating pain no chest pain no shortness of breath no numbness weakness or tingling Yes all other systems are reviewed and are negative [facility] Past Medical History Source: nursing notes reviewed Medical History (Updated 03/04/21 @ 00:00 by Haleigh Malagon) Chronic pain syndrome Degenerative disc disease, lumbar Dementia Diabetes Diabetic neuropathy GERD (gastroesophageal reflux disease) High cholesterol Hypertension Spinal stenosis of lumbar region at multiple levels Spondylosis of lumbar spine Social History Social History Patient Tobacco Use Status: Former Tobacco user Tobacco use type: Cigarette Advance Directives: Yes Advance Directives on File: Yes Advance Directives Date on File: 09/28/20 Physical Exam Vital Signs: Vital Signs: Last Vital Signs Temp 98.3 F 03/03/21 12:10 Pulse 80 03/03/21 12:10 Resp 18 03/03/21 12:10 BP 126/65 03/03/21 12:10 Pulse Ox 98 03/03/21 12:10 BMI result Body Mass Index 26.6 General appearance comfortable no distress Head is normocephalic atraumatic Neck is supple nontender Respiratory no distress Chest clear to auscultation bilateral no chest wall tenderness Heart no murmur The extremities there is full range of motion x4 The bilateral shoulder exam shows tenderness to both shoulders, there is full range of motion in both but it is very uncomfortable there is no swelling no deformities and both arms are neurovascular intact distal Lower extremities are normal range of motion Course Course Course Narrative: Bilateral shoulder x-rays showed evidence of osteoarthritis in both shoulders, shoulder exam showed normal skin good range of motion no evidence of any septic joint and patient is discharged to follow with orthopedist Discharge Plan Discharge Clinical Impression: Osteoarthritis of shoulders, bilateral Patient Disposition: Home, Self-Care Additional Instructions: Follow with orthopedist for further evaluation, you could use Tylenol or your tramadol at home for pain Return any time if worse Prescriptions: No Action tizanidine 4 mg tablet 1 tab PO BID@09,15 RF: 0 enalapril maleate 20 mg tablet 1 tab PO DAILY RF: 0 amlodipine 5 mg tablet 1 tab PO DAILY RF: 0 aspirin 81 mg tablet,delayed release (DR/EC) 1 tab PO DAILY RF: 0 simvastatin 20 mg tablet 1 tab PO BEDTIME RF: 0 docusate sodium 100 mg capsule 1 cap PO BID RF: 0 omeprazole 20 mg capsule,delayed release(DR/EC) 1 cap PO BID@0630,1630 RF: 0 bisacodyl 5 mg tablet,delayed release (DR/EC) 1 tab PO BEDTIME PRN (Reason: Constipation) RF: 0 gabapentin 100 mg capsule 1 cap PO BID RF: 0 metformin 500 mg tablet extended release 24 hr 1 tab PO QAM RF: 0 tramadol 50 mg tablet 50 mg PO BID PRN (Reason: pain) 30 Days Qty: 60 RF: 1 Referrals: David Aldana MD [Physician] - 2 days (Bilateral shoulder arthritis causing pain) Interventions: ED Discharge Assessment Last Done: 03/03/21 13:06 Discharge Date/Time: 03/03/21 13:08
[2021-03-03 12:10] VITALS: BP 126/65; PULSE 80; RESP 18; TEMP 36.8; O2SAT 98; BMI 26.6
== END 2021-03-03 13:08 | disposition home or self-care (01) ==
PROVIDERS: Emergency Provider Emergency Medicine
DX: M19.012 Primary osteoarthritis, left shoulder (principal); M19.011 Primary osteoarthritis, right shoulder; M25.512 Pain in left shoulder; M25.511 Pain in right shoulder; I10 Essential (primary) hypertension; E11.9 Type 2 diabetes mellitus without complications; E78.5 Hyperlipidemia, unspecified
CPT/HCPCS: 73030; 99283

== ENCOUNTER → 2021-03-10 12:51 | Outpatient (BNVA) | payer MEDICARE, MEDICAID, SELFPAY | PROVIDERS: PCP Internal Medicine; Visit Provider Anesthesiology | DX: Z51.81 Encounter for therapeutic drug level monitoring (principal); F11.20 Opioid dependence, uncomplicated; M48.061 Spinal stenosis, lumbar region without neurogenic claudication; M51.36 Other intervertebral disc degeneration, lumbar region; M47.816 Spondylosis without myelopathy or radiculopathy, lumbar region; G89.4 Chronic pain syndrome | CPT/HCPCS: 99212 ==

== ENCOUNTER → 2021-03-24 09:55 | Outpatient (BNVA) | payer MEDICARE, MEDICAID, SELFPAY | PROVIDERS: PCP Internal Medicine; Visit Provider Anesthesiology ==

== ENCOUNTER 2021-03-24 10:58 | Outpatient (REF) | payer MEDICARE, MEDICAID, SELFPAY ==
[2021-03-24 11:26] LABS: COVID-19 Test Negative (Negative); IDNOW Serial# 16C4AD1C
== END 2021-03-24 10:59 | disposition home or self-care (01) ==
LOC: HO.LAB 10:58
PROVIDERS: Visit Provider Internal Medicine
DX: Z20.822 Contact with and (suspected) exposure to COVID-19 (principal)
CPT/HCPCS: 87635; C9803

== ENCOUNTER → 2021-05-05 10:50 | Outpatient (BNVA) | payer MEDICARE, MEDICAID, SELFPAY | PROVIDERS: PCP Internal Medicine; Visit Provider Anesthesiology | DX: Z51.81 Encounter for therapeutic drug level monitoring (principal); F11.20 Opioid dependence, uncomplicated; M48.061 Spinal stenosis, lumbar region without neurogenic claudication; M51.36 Other intervertebral disc degeneration, lumbar region; M47.816 Spondylosis without myelopathy or radiculopathy, lumbar region; G89.4 Chronic pain syndrome | CPT/HCPCS: 99212 ==

== ENCOUNTER 2021-08-22 13:37 | Emergency (ER) | payer MEDICARE, MEDICAID, SELFPAY ==
--- NOTE | ~2021-08-22 | CT_ITS ---
EXAMINATION: CT HEAD WITHOUT CONTRAST CLINICAL INFORMATION: Dizziness and slurred speech COMPARISON: Head CT 11/03/2020 TECHNIQUE: Imaging was performed from the skull base to vertex without intravenous administration of contrast. This CT examination was performed using dose optimization techniques as appropriate, variously including the following: *Automated exposure control *Adjustment of mA and/or kV according to patient size (this includes techniques or standardized protocols for targeted exams where dose is matched to indication/reason for exam; i.e. extremities or head) *Use of iterative reconstruction technique Total exam dose length product: 704 mGy-cm FINDINGS: No intra or extra-axial fluid collection, hemorrhage, or mass. No ventriculomegaly. No midline shift or herniation. Basal cisterns are patent. Grier-white matter differentiation is maintained. Small focus of encephalomalacia and cortical volume loss in the anterolateral right frontal lobe on series 2-28. Lung Proportional prominence of the ventricles and sulcal spaces is consistent with moderate volume loss. Patchy periventricular and deep white matter hypoattenuation is consistent with moderate small vessel ischemic changes. No calvarial fracture or soft tissue abnormality. The mastoid air cells and visualized portions of the paranasal sinuses are well aerated. CT/CT head/brain wo con IMPRESSION: 1. No intracranial hemorrhage, mass, or evidence of acute edematous territorial infarct. 2. Unchanged are cerebral atrophy and chronic small vessel ischemic white matter change. 3. Unchanged small focus of encephalomalacia in the anterolateral right frontal lobe.
[2021-08-22 13:59] VITALS: BP 135/69; BP 172/84; PULSE 67; PULSE 78; RESP 18; TEMP 36.7; O2SAT 97
--- NOTE | 2021-08-22 14:27 | ED_ITS ---
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 Patient reports that the symptoms lasted about 30 minutes. Patient requested to go and lay down and reports to be feeling better after that. Patient has a history of TIA last year and admitted in September of 2020 seen by Neurology then. Patient had carotid Doppler done better control of his blood pressure and was placed on aspirin 81 mg daily. Carotid Doppler study done in 09/24/2020 IMPRESSION: 1. RIGHT: Minimal, non-hemodynamically significant stenosis of the proximal right internal carotid artery corresponding to a 0-49% stenosis by velocity criteria. ? 2. LEFT: Minimal, non-hemodynamically significant stenosis of the proximal left internal carotid artery corresponding to a 0-49% stenosis by velocity criteria. Patient is completely asymptomatic at this time, will do CT scan of the head, EKG, urine, CBC, BMP. Monitor patient. Exam shows negative NIH stroke score 0. ? MD complaint: altered mental status and other (AMS resolved) Onset (ago): hour(s) Time: 08:00 Severity: mild Associated symptoms: denies other symptoms Related Data Home Medications Medication Instructions Recorded Confirmed amlodipine 5 mg tablet 1 tab PO DAILY 09/23/20 09/23/20 aspirin 81 mg tablet,delayed 1 tab PO DAILY 09/23/20 09/23/20 release bisacodyl 5 mg tablet,delayed 1 tab PO BEDTIME PRN Constipation 09/23/2009/23 release docusate sodium 100 mg capsule 1 cap PO BID 09/23/20 09/23/20 enalapril maleate 20 mg tablet 1 tab PO DAILY 09/23/20 09/23/20 gabapentin 100 mg capsule 1 cap PO BID 09/23/20 09/23/20 metformin 500 mg tablet,extended 1 tab PO QAM 09/23/20 09/23/20 release 24 hr omeprazole 20 mg capsule,delayed 1 cap PO BID@0630,1630 09/23/20 09/23/20 release simvastatin 20 mg tablet 1 tab PO BEDTIME 09/23/20 09/23/20 tizanidine 4 mg tablet 1 tab PO BID@09,15 09/23/20 09/23/20 diclofenac sodium 1 % topical gel g topical 03/24/21 Previous Rx's Medication Instructions Recorded tramadol 50 mg tablet 50 mg PO BID PRN pain 21 days #42 05/05/21 tabs aspirin 81 mg chewable tablet 162 mg PO DAILY #60 tabs 08/22/21 Allergies Allergy/AdvReac Type Severity Reaction Status Date / Time No Known Allergies Allergy Verified 08/22/21 13:59 [No Known Allergies*] Review of Systems Review of Systems: Constitutional : No Weight loss, No Fever, No Chills, No Night Sweats, No Fatigue, No Malaise ENT/Mouth : No Hearing loss, No Ear Pain, No Nasal Congestion, No Sinus Pain, No Hoarseness, No sore throat, No Rhinorrhea, No Swallowing Difficulty Eyes: No Eye Pain, No Swelling, No Redness, No Foreign Body, No Discharge, No Vision Changes Cardiovascular : No Chest Pain, No SOB, No Dyspnea on Exertion, No Orthopnea, No Edema, No Palpitations Respiratory : No Cough, No Sputum, No Wheezing, No Smoke Exposure, No Dyspnea Gastrointestinal : No Nausea, No Vomiting, No Diarrhea, No Constipation, No abdominal Pain, No Hematochezia, No Melena Genitourinary : no irregular bleeding, No Dysuria, No Urinary Frequency, No Hematuria, No Urinary Incontinence, No Urgency, No Flank Pain, No Urinary Flow Changes, No Hesitancy Musculoskeletal : No joint pain, No Myalgias, No Joint Swelling Skin : No Skin Lesions, No rash Neuro : No Weakness, No Numbness, No Paresthesias, No Loss of Consciousness, Dizziness, No Headache Psych : No Anxiety/Panic, No Depression, No SI/HI/AH/VH, No Social Issues, Heme/Lymph: No Bruising, No Bleeding,No Lymphadenopathy Endocrine : No Polyuria, No Polydipsia, No Temperature Intolerance Yes all other systems are reviewed and are negative Neurologic: Reports Abnormal speech present [facility] Past Medical History Medical History (Updated 08/23/21 @ 00:01 by Haleigh Malagon) Dementia Diabetes Diabetic neuropathy GERD (gastroesophageal reflux disease) High cholesterol Hypertension Social History Social History Alcohol intake: never Patient Tobacco Use Status: Former Tobacco user Tobacco use type: Cigarette Advance Directives Date on File: 09/28/20 Physical Exam ED Vital Signs: Vital Signs - 24 hr 08/22/21 13:59 08/22/21 15:19 08/22/21 15:57 Temperature 98.0 F 98.4 F 98.7 F Pulse Rate 67 68 71 Respiratory Rate 18 15 16 Blood Pressure 135/69 136/78 147/75 H Pulse Oximetry 97 98 98 Oxygen Delivery Method Room Air Room Air Room Air BMI result Body Mass Index 30.0 Const General: cooperative, healthy appearing, comfortable, no acute distress and well developed Nutritional Appearance: average body habitus Orientation/consciousness: patient oriented x3 Limitations: language barrier HENMT Head: Yes normal to inspection, Yes normocephalic and Yes atraumatic Ears: hearing grossly normal bilaterally General nose exam: Normal external nose present Face and sinus: Yes normal facial exam Mouth: Normal oral and palatal mucosa present Eyes General: appearance normal, both eyes and all related structures Neck Neck: Yes normal visual inspection and Yes trachea midline Chest Chest palpation & inspection: normal inspection of the chest and normal palpation of entire chest wall Resp Effort & Inspection: normal respiratory effort and able to speak in complete sentences Auscultation: clear to auscultation bilaterally Cardio Jugular venous distension: no JVD Rate: regular rate Rhythm: regular rhythm Heart sounds: S1 normal heart sound present and S2 normal heart sound present GI Inspection: Yes normal to inspection and No distended Palpation (GI): Soft to palpation, not firm, nontender and no guarding Percussion: Yes normal to percussion General: Yes no CVA tenderness Back/Spine/Pelvis Back: no CVA tenderness Cervical Spine: normal cervical lordosis Thoracic/Lumbar Spine: thoracic and lumbar spine normal to inspection and No paraspinal muscle tenderness Skin General skin exam: no rashes or lesions noted, elasticity normal and turgor normal Neuro General: patient oriented x3 Cranial nerves: Yes CN's II-XII intact bilaterally Cognition (Neuro): normal cognition Speech: Abnormal speech present Gait exam (Neuro): Normal gait present Motor exam (neuro): 5/5 motor strength present throughout Sensory Exam: Normal double simultaneous stimulation for sensation Coordination: [id number] test normal Pupils: Normal pupillary reactivity/response: bilateral Extrem General: Yes capillary refill normal, Yes no joint enlargement, Yes no pedal edema, Yes no calf tenderness and Yes other (Status post right knee replacement 2 years ago) Psych Appearance: grossly normal and well kempt Mental Status: mental status grossly normal Affect: normal affect Attitude: cooperative Thought process: Normal thought process present Thought content: Normal thought content present Insight: Good insight present (Psych) Judgement: Good judgement present (Psych) NIH Stroke Scale Internal: Initial- Upon Arrival Level of Consciousness: Alert Level of Consciousness Questions: Answers both questions correctly Level of Consciousness Commands: Performs both tasks correctly Best Gaze: Normal Visual: No visual loss Facial Palsy: Normal Motor Arm (Right): No drift Motor Arm (Left): No drift Motor Leg (Right): No drift Motor Leg (Left): No drift Limb Ataxia: Absent Sensory: Normal Best Language: No aphasia Dysarthia: Normal Extinction and Inattention: No abnormality Score: 0 Course Course Course Narrative: 75 years old male with past medical history of degenerative of disc disease, spinal stenosis of lumbar region, TIA, stroke in [place] over 10 years ago is here today for symptoms of slurred speech and dizziness this morning at 08:00 o'clock that was witnessed by patient's BORING MACHINE OPERATOR. Patient reports that the symptoms lasted about 30 minutes. Patient requested to go and lay down and reports to be feeling better after that. Patient has a history of TIA last year and admitted in September of 2020 seen by Neurology then. Patient had carotid Doppler done better control of his blood pressure and was placed on aspirin 81 mg daily. Carotid Doppler study done in 09/24/2020 IMPRESSION: 1. RIGHT: Minimal, non-hemodynamically significant stenosis of the proximal right internal carotid artery corresponding to a 0-49% stenosis by velocity criteria. ? 2. LEFT: Minimal, non-hemodynamically significant stenosis of the proximal left internal carotid artery corresponding to a 0-49% stenosis by velocity criteria. Patient is completely asymptomatic at this time, will do CT scan of the head, EKG, urine, CBC, BMP. Monitor patient. Exam shows negative NIH stroke score 0. ? ? Reevaluation(s) Reevaluation #1: CT scan negative for any acute processes, all blood work is negative as well. No neuro changes. Patient is alert and oriented x3. Patient's daughter the bedside and states that patient is his normal self. Will send patient home to follow-up with Neurology next week. We will increase his aspirin to 162 mg daily. Patient is alert and oriented denies lightheadedness, dizziness, slurred speech. Reports to be feeling well. Patient's daughter will take patient home and agrees to follow-up with neurology in a 2-3 days. However patient was encouraged to call ambulance if his symptoms return and seek emergency services as soon as he will have any neurological symptoms MDM - Altered Mental Status MDM Narrative Medical decision making narrative: Patient came after experiencing symptoms of TIA this morning that were gone when he arrived to the emergency department. Upon observation fever can and all the blood work will negative. Patient was observed in the emergency department for few hours no change in symptoms noted. Patient will be sent home to follow up with Neurology. Patient's daughter will take him home and if he will have any the or any some for changes in his neurological symptoms he will return to emergency department as soon as he experienced the symptoms. I will increase his aspirin to 2 tabs a day for total of 162 mg. Patient is agreeable to plan of care and verbalizes understanding of instructions. Both him and his daughter were given the opportunity to ask questions and all questions answered. Differential Diagnosis Differential diagnosis: Likely altered mental status Medical Records Attestation: I reviewed the patient's medical records. Lab Data Attestation: I reviewed the patient's lab results. Result diagrams: 08/22/21 14:55 08/22/21 14:55 Labs: Lab Results 08/22/21 08/22/21 08/22/21 Range/Units 14:55 14:55 15:25 WBC 9.9 (4.8-10.8) X10*3/uL RBC 5.49 (4.60-5.80) X10*6/uL Hgb 15.7 (14.0-18.0) g/dl Hct 48.8 (42.0-52.0) % MCV 88.9 (80.0-98.0) fL MCH 28.6 (27.0-33.0) pg MCHC 32.2 (31.0-36.0) g/dl RDW 12.4 (11.0-16.0) % Plt Count 219 (160-400) X10*3/uL MPV 10.3 (9.4-12.4) fL Immature Gran % (Auto) 0.3 (0.0-0.4) % Neut % (Auto) 68.2 (45-73) % Lymph % (Auto) 22.0 (20-40) % [place] % (Auto) 8.1 (2-11) % Eos % (Auto) 0.8 (0-4) % Baso % (Auto) 0.6 (0-2) % Lymph # (Auto) 2.2 (1.2-4.9) X10*3/uL [place] # (Auto) 0.8 (0.1-1.2) X10*3/uL Eos # (Auto) 0.1 (0.0-0.4) X10*3/uL Baso # (Auto) 0.1 (0.0-0.2) X10*3/uL Abs Immat Gran (auto) 0.03 (0.00-0.03) X10*3/uL Absolute Neuts (auto) 6.8 (2.0-8.3) x10*3/uL Absolute Nucleated RBC 0.000 (0.0-0.012) X10*3/uL Nucleated RBC % (auto) 0.0 (0.0-0.2) /100WBC Sodium 140 (135-145) mmol/L Potassium 4.7 (3.3-5.1) mmol/L Chloride 102 (96-108) mmol/L Carbon Dioxide 25 (22-29) mmol/L Anion Gap 18 (12-20) BUN 16 (9-16) mg/dL Creatinine 1.16 (0.5-1.4) mg/dL Estim Creat Clear Calc 57.0 Estimated GFR > 60 Random Glucose 110 (60-115) mg/dL Calcium 10.5 H D (8.4-10.2) mg/dL Urine Color YELLOW Urine Appearance CLEAR Urine pH 6.0 (5.0-8.0) Ur Specific [place] 1.025 (1.005-1.025) Urine Protein NEG (NEG-TRACE) MG/DL Urine Glucose (UA) NEG (NEG) MG/DL Urine Ketones NEG (NEG) MG/DL Urine Blood NEG (NEG) Urine Nitrite NEG (NEG) Ur Leukocyte Esterase NEG (NEG) Imaging Data CT scan - head: Attestation: I personally reviewed and interpreted this imaging study as follows: Radiologist's impression: FINDINGS: No intra or extra-axial fluid collection, hemorrhage, or mass. No ventriculomegaly. No midline shift or herniation. Basal cisterns are patent. Grier-white matter differentiation is maintained. Small focus of encephalomalacia and cortical volume loss in the anterolateral right frontal lobe on series 2-28. Lung ?Proportional prominence of the ventricles and sulcal spaces is consistent with moderate volume loss. Patchy periventricular and deep white matter hypoattenuation is consistent with moderate small vessel ischemic changes. No calvarial fracture or soft tissue abnormality. The mastoid air cells and visualized portions of the paranasal sinuses are well aerated. CT/CT head/brain wo con IMPRESSION: 1. No intracranial hemorrhage, mass, or evidence of acute edematous territorial infarct. 2. Unchanged are cerebral atrophy and chronic small vessel ischemic white matter change. 3. Unchanged small focus of encephalomalacia in the anterolateral right frontal lobe. ? Discharge Plan Discharge Clinical Impression: TIA (transient ischemic attack) Patient Disposition: Home, Self-Care Instructions: Transient Ischemic Attack (ED) Additional Instructions: Lo vieron aqu? hoy porque ten?a s?ntomas de dificultad para hablar y mareos esta ma?katrin. Todos obi an?lisis de ramón y tomograf?a computarizada negativos. Aseg?rese de regresar si los s?ntomas regresan de inmediato. No esperes. Varnell 2 aspirinas en lugar de 1 todas las ma?anas y francia un seguimiento con neurolog?a la pr?xima semana. Prescriptions: New aspirin 81 mg tablet,chewable 162 mg PO DAILY Qty: 60 0RF No Action tizanidine 4 mg tablet 1 tab PO BID@09,15 enalapril maleate 20 mg tablet 1 tab PO DAILY amlodipine 5 mg tablet 1 tab PO DAILY aspirin 81 mg tablet,delayed release (DR/EC) 1 tab PO DAILY simvastatin 20 mg tablet 1 tab PO BEDTIME docusate sodium 100 mg capsule 1 cap PO BID omeprazole 20 mg capsule,delayed release(DR/EC) 1 cap PO BID@0630,1630 bisacodyl 5 mg tablet,delayed release (DR/EC) 1 tab PO BEDTIME PRN (Reason: Constipation) gabapentin 100 mg capsule 1 cap PO BID metformin 500 mg tablet extended release 24 hr 1 tab PO QAM diclofenac sodium 1 % gel topical tramadol 50 mg tablet 50 mg PO BID PRN (Reason: pain) 21 Days Qty: 42 0RF Referrals: Alyse Singer MD [Physician] - 3 days (History of TIA) Interventions: ED Discharge Assessment Last Done: 08/22/21 17:23 Discharge Date/Time: 08/22/21 17:24
--- NOTE | 2021-08-22 14:33 | ECG_ITS ---
Test Reason : ALTERED MENTAL Blood Pressure : / mmHG Vent. Rate : 076 BPM Atrial Rate : 076 BPM P-R Int : 138 ms QRS Dur : 080 ms QT Int : 402 ms P-R-T Axes : 049 -45 015 degrees QTc Int : 452 ms Normal sinus rhythm Left anterior fascicular block Cannot rule out Anterior infarct (cited on or before 30-SEP-2018) Abnormal ECG When compared with ECG of 03-NOV-2020 10:54, Premature atrial complexes are no longer Present Referred By: Lisette Burch Electronically Signed By:Srikanth Godinez
[2021-08-22 14:59] LABS: MANUAL DIFF FLAG NO
[2021-08-22 15:01] LABS: Basophils Absolute Auto 0.1 X10*3/uL (0.0-0.2); Basophils Percent Auto 0.6 % (0-2); Eosinophils Absolute Auto 0.1 X10*3/uL (0.0-0.4); Eosinophils Percent Auto 0.8 % (0-4); Hematocrit 48.8 % (42.0-52.0); Hemoglobin 15.7 g/dl (14.0-18.0); Imm Gran Abs Auto 0.03 X10*3/uL (0.00-0.03); Imm Gran Pct Auto 0.3 % (0.0-0.4); Lymphocytes Absolute Auto 2.2 X10*3/uL (1.2-4.9); Mean Corpuscular HGB Conc 32.2 g/dl (31.0-36.0); Mean Corpuscular Hemoglobin 28.6 pg (27.0-33.0); Mean Corpuscular Volume 88.9 fL (80.0-98.0); Mean Platelet Volume 10.3 fL (9.4-12.4); Monocytes Absolute Auto 0.8 X10*3/uL (0.1-1.2); Monocytes Percent Auto 8.1 % (2-11); Neutrophils Absolute Auto 6.8 x10*3/uL (2.0-8.3); Neutrophils Percent Auto 68.2 % (45-73); Platelet Count 219 X10*3/uL (160-400); Red Blood Count 5.49 X10*6/uL (4.60-5.80); Red Cell Distribution Width 12.4 % (11.0-16.0); White Blood Count 9.9 X10*3/uL (4.8-10.8)
[2021-08-22 15:19] VITALS: BP 136/78; PULSE 68; RESP 15; TEMP 36.9; O2SAT 98
[2021-08-22 15:26] LABS: Anion Gap 18 (12-20); Blood Urea Nitrogen 16 mg/dL (9-16); Calcium 10.5 mg/dL (8.4-10.2); Carbon Dioxide 25 mmol/L (22-29); Chloride 102 mmol/L (96-108); Estimated Glomerular Filt Rate > 60; Glucose Random 110 mg/dL (60-115); Potassium 4.7 mmol/L (3.3-5.1); Sodium 140 mmol/L (135-145)
[2021-08-22] MEDS: 0.9 % Sodium Chloride 500 ML IV (15:26)
[2021-08-22 15:33] LABS: Appearance Urine CLEAR; Color Urine YELLOW; Glucose Urine UA NEG (NEG); Leukocyte Esterase Urine NEG (NEG); Nitrite Urine NEG (NEG); Specific Gravity - Urine 1.025 (1.005-1.025); Urine Blood NEG (NEG); Urine Ketones NEG (NEG); Urine Protein NEG (NEG-TRACE)
[2021-08-22 15:57] VITALS: BP 147/75; PULSE 71; RESP 16; TEMP 37.1; O2SAT 98
== END 2021-08-22 17:24 | disposition home or self-care (01) ==
PROVIDERS: Nurse Practitioner Family; Emergency Provider Emergency Medicine Emergency Medical Services
DX: R42 Dizziness and giddiness (principal); R41.82 Altered mental status, unspecified; R47.81 Slurred speech; Z87.891 Personal history of nicotine dependence; Z79.899 Other long term (current) drug therapy
CPT/HCPCS: 36415; 70450; 80048; 81003; 85025; 93005; 99284

== ENCOUNTER 2021-08-31 10:05 | Emergency (ER) | payer MEDICARE, MEDICAID, SELFPAY ==
--- NOTE | ~2021-08-31 | XR_ITS ---
EXAMINATION: XR CHEST CLINICAL INFORMATION: Cough COMPARISON: 11/03/2020 TECHNIQUE: 2 views of the chest were obtained. FINDINGS: There are minor patchy infiltrates at the lung bases which could reflect pneumonia. They appear more conspicuous than on the 2020 exam. Upper lungs clear. I would recommend follow-up. No pleural effusion. Heart and pulmonary vessels are normal. There is advanced degenerative change of both shoulder joints. XR/XR chest 2V IMPRESSION: Query early bibasilar infiltrates or pneumonia therefore follow-up is advised.
--- NOTE | 2021-08-31 10:18 | ECG_ITS ---
Test Reason : chest pain Blood Pressure : / mmHG Vent. Rate : 083 BPM Atrial Rate : 083 BPM P-R Int : 142 ms QRS Dur : 076 ms QT Int : 370 ms P-R-T Axes : 051 -49 017 degrees QTc Int : 434 ms Normal sinus rhythm Left axis deviation Inferior infarct , age undetermined Possible Anterior infarct (cited on or before 30-SEP-2018) Abnormal ECG When compared with ECG of 22-AUG-2021 15:44, No significant change was found Referred By: Fiona Frank Electronically Signed By:ALEJANDRO SRINIVASAN
--- NOTE | 2021-08-31 10:27 | ED_ITS ---
HPI - Chest Pain General Chief Complaint: Upper Respiratory Symptoms Stated Complaint: Chest Pain Time Seen by Provider: 08/31/21 10:18 Source: patient Mode of arrival: EMS Limitations: language barrier (Welsh-speaking phlebotomist medical lab assistant utilized) History of Present Illness HPI narrative: Patient presents emergency department for evaluation of a cough. He states that the cough has been present for 1 month intermittently productive. He has pain to the sides of his chest ?my ribs hurt? when he is coughing. During episodes of extreme coughing fits he feels shortness of breath. Outside of episodes of coughing he denies any chest pain, palpitations, shortness of breath, difficulty breathing. Denies fevers, chills, dizziness, lightheadedness, neck pain, neck stiffness, nausea, vomiting, abdominal pain, generalized weakness, numbness or tingling of the extremities. He states that he tried taking a liquid cough medicine which was helping initially but is no longer helpful. He presented to emergency department today because he is ?tired of it?. Related Data Home Medications Medication Instructions Recorded Confirmed amlodipine 5 mg tablet 1 tab PO DAILY 09/23/20 09/23/20 aspirin 81 mg tablet,delayed 1 tab PO DAILY 09/23/20 09/23/20 release bisacodyl 5 mg tablet,delayed 1 tab PO BEDTIME PRN Constipation 09/23/20 release docusate sodium 100 mg capsule 1 cap PO BID 09/23/20 09/23/20 enalapril maleate 20 mg tablet 1 tab PO DAILY 09/23/20 09/23/20 gabapentin 100 mg capsule 1 cap PO BID 09/23/20 09/23/20 metformin 500 mg tablet,extended 1 tab PO QAM 09/23/20 09/23/20 release 24 hr omeprazole 20 mg capsule,delayed 1 cap PO BID@0630,1630 09/23/20 09/23/20 release simvastatin 20 mg tablet 1 tab PO BEDTIME 09/23/20 09/23/20 tizanidine 4 mg tablet 1 tab PO BID@09,15 09/23/20 09/23/20 diclofenac sodium 1 % topical gel g topical 03/24/21 Previous Rx's Medication Instructions Recorded tramadol 50 mg tablet 50 mg PO BID PRN pain 21 days #42 05/05/21 tabs aspirin 81 mg chewable tablet 162 mg PO DAILY #60 tabs 08/22/21 benzonatate 200 mg capsule 200 mg PO BID PRN cough 5 days #10 08/31/21 caps cefpodoxime 200 mg tablet 200 mg PO BID 7 days #14 tabs 08/31/21 doxycycline hyclate 100 mg tablet 100 mg PO BID 7 days #14 tabs 08/31/21 Allergies Allergy/AdvReac Type Severity Reaction Status Date / Time No Known Allergies Allergy Verified 08/22/21 13:59 [No Known Allergies*] Review of Systems Review of Systems: Constitutional: No weight loss. No fever. No chills. No weakness. No fatigue. Eye: No swelling. No redness. ENT: No sore throat. No rhinorrhea. No nasal congestion. No sore throat. No difficulty swallowing. Skin: No rash. No itching. Cardiovascular: No chest pain. No chest pressure. No palpitations. No pedal edema. Respiratory: No shortness of breath. Positive cough. Positive sputum production. Gastrointestinal: No anorexia. No nausea. No vomiting. No diarrhea. No abdominal pain. Genitourinary: No burning micturition. No urinary frequency. No incontinence. Neurologic: No headache. No dizziness. No pre-syncope/ syncope. No unilateral weakness. No ataxia. No numbness. No tingling. Musculoskeletal: No muscle pain. No back pain. No joint pain. No stiffness. Yes all other systems are reviewed and are negative [facility] Past Medical History Attestation statement: The following information was validated with the patient. Source: old records reviewed Medical History Dementia Diabetes Diabetic neuropathy GERD (gastroesophageal reflux disease) High cholesterol Hypertension Social History Social History Alcohol intake: never Patient Tobacco Use Status: Former Tobacco user Tobacco use type: Cigarette Advance Directives: Yes Advance Directives on File: Yes Advance Directives Date on File: 09/28/20 Physical Exam Vital Signs: Vital Signs: Last Vital Signs Temp 98.0 F 08/31/21 12:55 Pulse 58 08/31/21 12:55 Resp 16 08/31/21 12:55 BP 138/78 08/31/21 12:55 Pulse Ox 94 08/31/21 12:55 O2 Del Method 08/31/21 12:55 BMI result Body Mass Index 29.5 Vital signs have been reviewed as normal and appeared to be correct. Blood pressure normal.? Heart rate normal.? Respiration rate normal. Temperature normal.? Oxygen saturation normal. Appearance: Alert.?Oriented to person, place and time. No acute distress.?Normal affect. Eyes: Pupils equal, round and reactive to light.? ENT: Pharynx normal.?? Neck: Normal inspection.? Neck supple.?? CVS: Heart sounds normal. Normal heart rate and rhythm.? Pulses normal.?? Respiratory: No respiratory distress.? Lung sounds clear to auscultation bilaterally?at the apices, rales to the right lower lobe Abdomen: Soft and non-tender. Normoactive bowel sounds. Skin: Skin warm and dry.? Normal skin color.? Extremities: No lower extremity edema.? No calf ttp? Neuro: Moves all extremities spontaneously. Sensation intact bilaterally. CN II- XII intact. No focal neuro deficits. Ambulates with normal steady gait. Course Course Course Narrative: Patient is a 76-year-old male with medical history of hypertension, hyperlipidemia, [id number] diabetes, GERD, dementia, diabetic neuropathy, presenting to emergency department for evaluation of an intermittent productive cough x1 month. Reporting shortness of breath and rib pain only during episodes of coughing. Initially reported to EMS that he was having chest pain, 4 baby aspirin were provided, actively denies any chest pain and denies having chest pain earlier today. He is overall well appearing, nontoxic, no apparent distress, easy work of breathing, hemodynamically stable. Will obtain CBC to evaluate for leukocytosis/ anemia, CMP to evaluate for abnormal electrolytes /abnormal renal function/ abnormal hepatic function, EKG and troponin to evaluate for ischemia/ACS. Chest x-ray to evaluate for consolidation/ infiltrate/ mass/ pulmonary congestion. Reevaluation(s) Reevaluation #1: CBC is overall unremarkable. CMP unremarkable. Troponin 20.6, EKG reveals normal sinus rhythm, no acute ischemic findings, no active chest pain, cough unlikely ACS. COVID-19 testing is negative. Chest x-ray reveals patchy i nfiltrates at the lung bases, concerning for pneumonia, given symptoms of persistent cough over the past month, will treat at this time for community- acquired pneumonia. He is hemodynamically stable, has no increased work of breathing no hypoxia or tachypnea, CURB-65 score of 1. Discussed reasons for patient to return back to the emergency department, all questions were answered, he was discharged home in stable condition. Time: 12:48 MDM - Chest Pain Medical Records Data Attestation: I reviewed the patient's medical records. Lab Data Attestation: I reviewed the patient's lab results. Result diagrams: 08/31/21 10:51 08/31/21 10:51 Labs: Lab Results 08/31/21 08/31/21 08/31/21 Range/Units 10:51 10:51 10:51 WBC 6.1 (4.8-10.8) X10*3/uL RBC 4.87 (4.60-5.80) X10*6/uL Hgb 13.7 L (14.0-18.0) g/dl Hct 42.6 (42.0-52.0) % MCV 87.5 (80.0-98.0) fL MCH 28.1 (27.0-33.0) pg MCHC 32.2 (31.0-36.0) g/dl RDW 12.2 (11.0-16.0) % Plt Count 151 L D (160-400) X10*3/uL MPV 10.2 (9.4-12.4) fL Immature Gran % (Auto) 0.2 (0.0-0.4) % Neut % (Auto) 57.6 (45-73) % Lymph % (Auto) 23.5 (20-40) % [place] % (Auto) 18.1 H (2-11) % Eos % (Auto) 0.3 (0-4) % Baso % (Auto) 0.3 (0-2) % Lymph # (Auto) 1.4 (1.2-4.9) X10*3/uL [place] # (Auto) 1.1 (0.1-1.2) X10*3/uL Eos # (Auto) 0.0 (0.0-0.4) X10*3/uL Baso # (Auto) 0.0 (0.0-0.2) X10*3/uL Abs Immat Gran (auto) 0.01 (0.00-0.03) X10*3/uL Absolute Neuts (auto) 3.5 (2.0-8.3) x10*3/uL Absolute Nucleated RBC 0.000 (0.0-0.012) X10*3/uL Nucleated RBC % (auto) 0.0 (0.0-0.2) /100WBC Sodium 136 (135-145) mmol/L Potassium 4.4 (3.3-5.1) mmol/L Chloride 102 (96-108) mmol/L Carbon Dioxide 28 (22-29) mmol/L Anion Gap 10 L (12-20) BUN 15 (9-16) mg/dL Creatinine 1.12 (0.5-1.4) mg/dL Estim Creat Clear Calc 61.4 Estimated GFR > 60 Random Glucose 188 H D (60-115) mg/dL Calcium 9.3 D (8.4-10.2) mg/dL Magnesium 1.8 (1.6-2.6) mg/dL Total Bilirubin 1.1 H (0.0-1.0) mg/dL AST 32 D (5-37) U/L ALT 28 (0-40) U/L Alkaline Phosphatase 77 (39-117) U/L Troponin I High Sens 20.6 (<3.5-35.0) ng/L B-Natriuretic Peptide 34 (<100) pg/mL Total Protein 6.8 (6.5-8.0) g/dL Albumin 4.2 (3.5-5.0) g/dL COVID-19 (JOANNE) (Negative) COVID-19 Clin Com 08/31/21 Range/Units 10:51 WBC (4.8-10.8) X10*3/uL RBC (4.60-5.80) X10*6/uL Hgb (14.0-18.0) g/dl Hct (42.0-52.0) % MCV (80.0-98.0) fL MCH (27.0-33.0) pg MCHC (31.0-36.0) g/dl RDW (11.0-16.0) % Plt Count (160-400) X10*3/uL MPV (9.4-12.4) fL Immature Gran % (Auto) (0.0-0.4) % Neut % (Auto) (45-73) % Lymph % (Auto) (20-40) % [place] % (Auto) (2-11) % Eos % (Auto) (0-4) % Baso % (Auto) (0-2) % Lymph # (Auto) (1.2-4.9) X10*3/uL [place] # (Auto) (0.1-1.2) X10*3/uL Eos # (Auto) (0.0-0.4) X10*3/uL Baso # (Auto) (0.0-0.2) X10*3/uL Abs Immat Gran (auto) (0.00-0.03) X10*3/uL Absolute Neuts (auto) (2.0-8.3) x10*3/uL Absolute Nucleated RBC (0.0-0.012) X10*3/uL Nucleated RBC % (auto) (0.0-0.2) /100WBC Sodium (135-145) mmol/L Potassium (3.3-5.1) mmol/L Chloride (96-108) mmol/L Carbon Dioxide (22-29) mmol/L Anion Gap (12-20) BUN (9-16) mg/dL Creatinine (0.5-1.4) mg/dL Estim Creat Clear Calc Estimated GFR Random Glucose (60-115) mg/dL Calcium (8.4-10.2) mg/dL Magnesium (1.6-2.6) mg/dL Total Bilirubin (0.0-1.0) mg/dL AST (5-37) U/L ALT (0-40) U/L Alkaline Phosphatase (39-117) U/L Troponin I High Sens (<3.5-35.0) ng/L B-Natriuretic Peptide (<100) pg/mL Total Protein (6.5-8.0) g/dL Albumin (3.5-5.0) g/dL COVID-19 (JOANNE) Negative (Negative) COVID-19 Clin Com See Note Imaging Data Chest x-ray: Radiologist's impression: FINDINGS: There are minor patchy infiltrates at the lung bases which could reflect pneumonia. They appear more conspicuous than on the 2020 exam. Upper lungs clear. I would recommend follow-up. No pleural effusion. Heart and pulmonary vessels are normal. There is advanced degenerative change of both shoulder joints. XR/XR chest 2V IMPRESSION: Query early bibasilar infiltrates or pneumonia therefore follow-up is advised. ECG Data ECG #1: Attestation: I personally reviewed and interpreted this ECG as follows: ECG interpretation date: 08/31/21 Prior ECG tracings: available for review Interpretation: Rate: 83 Rhythm:? Normal sinus rhythm Solon:? Solon deviation Normal P waves.? Normal SUSAN.?? Normal QRS complex.?? ST T wave :??No ST elevation, no ST depression qTC: 434 prior studies:?08/22/21 The study has been interpreted contemporaneously by me. Discharge Plan Discharge Clinical Impression: Community acquired pneumonia Patient Disposition: Home, Self-Care Instructions: Community Acquired Pneumonia (ED) Additional Instructions: Your chest x-ray indicates pneumonia. This is likely the cause of your cough over the past month. You have been given a new prescription for 2 antibiotics, please complete this entire course. You should follow-up with your primary care doctor within 5-7 days. Return to the emergency department with any new or worsening symptoms or concerns Prescriptions: New cefpodoxime 200 mg tablet 200 mg PO BID 7 Days Qty: 14 0RF Rx Instructions: must administer with a meal/food doxycycline hyclate 100 mg tablet 100 mg PO BID 7 Days Qty: 14 0RF benzonatate 200 mg capsule 200 mg PO BID PRN (Reason: cough) 5 Days Qty: 10 0RF No Action tizanidine 4 mg tablet 1 tab PO BID@09,15 enalapril maleate 20 mg tablet 1 tab PO DAILY amlodipine 5 mg tablet 1 tab PO DAILY aspirin 81 mg tablet,delayed release (DR/EC) 1 tab PO DAILY simvastatin 20 mg tablet 1 tab PO BEDTIME docusate sodium 100 mg capsule 1 cap PO BID omeprazole 20 mg capsule,delayed release(DR/EC) 1 cap PO BID@0630,1630 bisacodyl 5 mg tablet,delayed release (DR/EC) 1 tab PO BEDTIME PRN (Reason: Constipation) gabapentin 100 mg capsule 1 cap PO BID metformin 500 mg tablet extended release 24 hr 1 tab PO QAM aspirin 81 mg tablet,chewable 162 mg PO DAILY Qty: 60 0RF diclofenac sodium 1 % gel topical tramadol 50 mg tablet 50 mg PO BID PRN (Reason: pain) 21 Days Qty: 42 0RF Interventions: ED Discharge Assessment Last Done: 08/31/21 13:18 Discharge Date/Time: 08/31/21 13:20
[2021-08-31 10:33] VITALS: BP 164/77; BP 164/88; PULSE 85; PULSE 92; RESP 16; TEMP 37.1; O2SAT 95; O2SAT 97; BMI 29.5
[2021-08-31 11:00] LABS: Basophils Percent Auto 0.3 % (0-2); Eosinophils Percent Auto 0.3 % (0-4); Hematocrit 42.6 % (42.0-52.0); Hemoglobin 13.7 g/dl (14.0-18.0); Imm Gran Abs Auto 0.01 X10*3/uL (0.00-0.03); Imm Gran Pct Auto 0.2 % (0.0-0.4); Lymphocytes Absolute Auto 1.4 X10*3/uL (1.2-4.9); Lymphocytes Percent Auto 23.5 % (20-40); MANUAL DIFF FLAG NO; Mean Corpuscular HGB Conc 32.2 g/dl (31.0-36.0); Mean Corpuscular Hemoglobin 28.1 pg (27.0-33.0); Mean Corpuscular Volume 87.5 fL (80.0-98.0); Mean Platelet Volume 10.2 fL (9.4-12.4); Monocytes Absolute Auto 1.1 X10*3/uL (0.1-1.2); Monocytes Percent Auto 18.1 % (2-11); Neutrophils Absolute Auto 3.5 x10*3/uL (2.0-8.3); Neutrophils Percent Auto 57.6 % (45-73); Platelet Count 151 X10*3/uL (160-400); Red Blood Count 4.87 X10*6/uL (4.60-5.80); Red Cell Distribution Width 12.2 % (11.0-16.0); White Blood Count 6.1 X10*3/uL (4.8-10.8)
[2021-08-31 11:15] LABS: Alanine Aminotransferase 28 U/L (0-40); Albumin Level 4.2 g/dL (3.5-5.0); Alkaline Phosphatase 77 U/L (39-117); Anion Gap 10 (12-20); Aspartate Amino Transferase 32 U/L (5-37); Bilirubin Total 1.1 mg/dL (0.0-1.0); Blood Urea Nitrogen 15 mg/dL (9-16); Calcium 9.3 mg/dL (8.4-10.2); Carbon Dioxide 28 mmol/L (22-29); Chloride 102 mmol/L (96-108); Creatinine Clr Calc Pharmacy 61.4; Estimated Glomerular Filt Rate > 60; Glucose Random 188 mg/dL (60-115); Magnesium 1.8 mg/dL (1.6-2.6); Potassium 4.4 mmol/L (3.3-5.1); Sodium 136 mmol/L (135-145); Total Protein 6.8 g/dL (6.5-8.0)
[2021-08-31 11:21] LABS: COVID-19 Test Negative (Negative); IDNOW Serial# 16C4AD1C
[2021-08-31 11:22] LABS: B Type Natriuretic Peptide 34 pg/mL (<100); Troponin-I High Sensitivity 20.6 ng/L (<3.5-35.0)
[2021-08-31 12:55] VITALS: BP 138/78; PULSE 58; RESP 16; TEMP 36.7; O2SAT 94
== END 2021-08-31 13:20 | disposition home or self-care (01) ==
PROVIDERS: Nurse Practitioner Family; Emergency Provider Emergency Medicine
DX: J18.9 Pneumonia, unspecified organism (principal); E11.9 Type 2 diabetes mellitus without complications; I10 Essential (primary) hypertension; F03.90 Unspecified dementia, unspecified severity, without behavioral disturbance, psychotic disturbance, mood disturbance, and anxiety; Z20.822 Contact with and (suspected) exposure to COVID-19
CPT/HCPCS: 71046; 80053; 83735; 83880; 84484; 85025; 87635; 93005; 99283; 99284

== ENCOUNTER 2021-09-07 06:12 | Outpatient (REF) | payer MEDICARE, MEDICAID, SELFPAY ==
--- NOTE | ~2021-09-07 | FL_ITS ---
INDICATION: Intraoperative fluoroscopy. FLUOROSCOPY: Fluoroscopy Time: 0.7 minutes Dose: 9.39 Gy cm sq Images saved: 2 FINDINGS: Multiple intraoperative fluoroscopic images are submitted during procedure involving the lumbar spine. Correlation with operative report. Evaluation is limited secondary to fluoroscopic technique. IMPRESSION: Intra-operative fluoroscopic imaging provided by radiology during procedure involving the lumbar spine. Please refer to operative note for further information.
== END 2021-09-07 06:13 | disposition home or self-care (01) ==
LOC: HO.RADIR 06:12
PROVIDERS: Visit Provider Anesthesiology
DX: M99.53 Intervertebral disc stenosis of neural canal of lumbar region (principal); M48.061 Spinal stenosis, lumbar region without neurogenic claudication; M51.36 Other intervertebral disc degeneration, lumbar region; M47.816 Spondylosis without myelopathy or radiculopathy, lumbar region; G89.4 Chronic pain syndrome
CPT/HCPCS: 64483; 64484; J1100; J3300

== ENCOUNTER → 2021-10-06 12:59 | Outpatient (BNVA) | payer MEDICARE, MEDICAID, SELFPAY | PROVIDERS: PCP Internal Medicine; Visit Provider Anesthesiology | DX: M48.061 Spinal stenosis, lumbar region without neurogenic claudication (principal); M51.36 Other intervertebral disc degeneration, lumbar region; M47.816 Spondylosis without myelopathy or radiculopathy, lumbar region; G89.4 Chronic pain syndrome | CPT/HCPCS: 99212 ==

== ENCOUNTER → 2021-11-15 10:53 | Outpatient (BNVA) | payer MEDICARE, MEDICAID, SELFPAY | PROVIDERS: PCP Internal Medicine; Visit Provider Anesthesiology | DX: M48.061 Spinal stenosis, lumbar region without neurogenic claudication (principal); M51.36 Other intervertebral disc degeneration, lumbar region; M47.816 Spondylosis without myelopathy or radiculopathy, lumbar region; G89.4 Chronic pain syndrome | CPT/HCPCS: 99212 ==

== ENCOUNTER 2021-11-25 19:54 | Inpatient (IN) | payer OTHER, MEDICAID, SELFPAY ==
--- NOTE | ~2021-11-25 | CT_ITS ---
EXAMINATION: CT ANGIOGRAM HEAD AND NECK CLINICAL INFORMATION: Unable to speak COMPARISON: Head CT 08/22/2021 TECHNIQUE: Test bolus sequences followed by intravenous administration of 70 mL of Omnipaque 300 intravenous contrast. Helical imaging was performed in the axial plane from the mediastinum to the skull vertex. Delayed postcontrast imaging of the head was also performed. The data was processed at the chief radiologic technologist's workstation for generation of MIP sequences. Three-dimensional volume rendered reformatted images were also generated at an offline 3-D workstation. This CT examination was performed using dose optimization techniques as appropriate, variously including the following: *Automated exposure control *Adjustment of mA and/or kV according to patient size (this includes techniques or standardized protocols for targeted exams where dose is matched to indication/reason for exam; i.e. extremities or head) *Use of iterative reconstruction technique DLP: 2248 mGy-cm FINDINGS: HEAD: No intra or extra-axial fluid collection, hemorrhage, or mass. No midline shift or herniation. Basal cisterns are patent. Small area of encephalomalacia in the lateral right frontal lobe on axial image 31 and sagittal image 80 consistent with prior infarct, unchanged. Grier-white matter differentiation is otherwise maintained. Mild to moderate cerebral volume loss and sulcal prominence and enlarged lateral ventricles. Moderate supratentorial white matter hypoattenuation bilaterally consistent with chronic small vessel ischemic change. Paranasal sinuses and mastoid air cells are normally aerated. No calvarial fracture. SOFT TISSUES AND LUNG APICES: Globes and retro-orbital structures are intact. Unremarkable appearance of the ordnance mechanic space and parapharyngeal fat. Major salivary glands are unremarkable. Thyroid gland unremarkable. Normal appearance of the laryngeal structures. No appreciable mucosal space mass. No cervical lymphadenopathy. No prevertebral soft tissue swelling. Borderline enlarged right upper paratracheal lymph node measuring 9 mm in short axis, nonspecific. Lung apices are clear. Multilevel cervical spondylosis most advanced at C6-C7 where there is moderate disc height loss. Multilevel facet arthrosis. Patient is edentulous. 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 Arch origins are patent. High-grade focal origin stenosis of the left vertebral artery due to mixed calcified noncalcified plaque. Right vertebral artery origin patent. Vertebral arteries are codominant and otherwise patent throughout their cervical course. Common carotid arteries are widely patent. Mild calcifications at the carotid bifurcations. No stenosis. Cervical segments of the internal carotid arteries are widely patent. CRANIAL CTA: Posterior circulation: Intradural vertebral arteries are patent. Patent left PICA and dual right AICAs. SCA's are patent bilaterally. Basilar artery widely patent. Bilateral posterior cerebral arteries are patent. Neither posterior communicating artery identified. Anterior circulation: The petrous segments of the ICAs are patent. Cavernous carotid vascular calcifications. Mild luminal narrowing of the right cavernous ICA due to mixed calcified noncalcified plaque. Supraclinoid ICAs are patent. Bilateral anterior and middle cerebral arteries are patent. Patent anterior communicating artery. No aneurysm or vascular malformation. No hemodynamically significant stenosis. No vascular cut off/occlusion. Major dural venous sinuses enhance normally. CT/CT angio head neck IMPRESSION: 1. No intracranial hemorrhage or acute edematous territorial infarct identified. 2. 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 No other hematoma dynamically significant stenosis identified. 3. No intracranial aneurysm or vascular occlusion/cut off.
--- NOTE | ~2021-11-25 | MR_ITS ---
MRI OF THE BRAIN WITHOUT IV CONTRAST INDICATION: TIA. COMPARISON: CTA head and neck 11/25/2021. TECHNIQUE: Multiplanar multisequence MR imaging of the brain was obtained without IV contrast. FINDINGS: There is no hydrocephalus, extra-axial surface collection, or herniation. There is global cerebral volume loss and there is moderate chronic microangiopathy. Chronic hemosiderin staining within the posterior left periventricular white matter and the left retrolentiform white matter. The major flow voids at the skull base are preserved. There is no acute infarct on diffusion-weighted imaging. There is no intracranial hemorrhage on the gradient recalled echo acquisition. The midline structures are normal. The cerebellar tonsils are normally positioned. The cerebellum and brainstem are normal. The craniocervical junction is normal. Osseous marrow signal intensity is homogenous. The visualized soft tissues are unremarkable. MR/MR head/brain wo con IMPRESSION: - No acute intracranial findings. No acute infarcts. - There is global cerebral volume loss, there is moderate chronic microangiopathy, and there is chronic hemosiderin staining within the posterior left periventricular white matter.
--- NOTE | ~2021-11-25 | XR_ITS ---
EXAMINATION: CHEST 2 VIEWS CLINICAL INFORMATION: dizziness . COMPARISON: 08/31/2021. TECHNIQUE: PA and lateral views of the chest obtained. FINDINGS: The lungs are mildly hypoexpanded with chronic appearing coarsened reticular markings as well as bibasilar linear atelectatic changes. No focal infiltrate, effusion, edema, or pneumothorax. Cardiac and mediastinal silhouettes are within normal limits for size with vascular calcification in aorta. Degenerative changes in the spine and shoulders. No acute bony abnormality seen XR/XR chest 2V IMPRESSION: Mildly hypoexpanded with basilar markings more likely due to atelectasis. No focal airspace disease otherwise
[2021-11-25 20:22] VITALS: BP 139/73; PULSE 81; RESP 24; TEMP 36.8; O2SAT 97; BMI 27.7
--- NOTE | 2021-11-25 20:22 | ECG_ITS ---
Test Reason : DIZZINESS Blood Pressure : / mmHG Vent. Rate : 081 BPM Atrial Rate : 081 BPM P-R Int : 144 ms QRS Dur : 076 ms QT Int : 380 ms P-R-T Axes : 046 -49 032 degrees QTc Int : 441 ms Normal sinus rhythm Left anterior fascicular block Cannot rule out Anterior infarct (cited on or before 30-SEP-2018) Abnormal ECG When compared with ECG of 31-AUG-2021 10:15, No significant change was found Referred By: Mayur Hansen Electronically Signed By:SAVANNA GREENE
--- NOTE | 2021-11-25 20:23 | ED.DIZZY ---
HPI - Dizziness General Chief Complaint: Dizziness Stated Complaint: weakness, nausea [id number] Time Seen by Provider: 11/25/21 20:17 Source: patient Mode of arrival: ambulatory Limitations: no limitations History of Present Illness HPI Narrative: 76-year-old male states he was sitting when he started feeling dizzy he denies any falls or injuries denies any change in medications states he is sitting he had a sudden onset dizziness her felt like his vision was changed he states he has more symptoms consistent throughout him eyes cough fever chest MD elicited complaint: dizziness Related Data Home Medications Medication Instructions Recorded Confirmed amlodipine 5 mg tablet 1 tab PO DAILY 09/23/20 11/25/21 aspirin 81 mg tablet,delayed 1 tab PO DAILY 09/23/20 11/25/21 release bisacodyl 5 mg tablet,delayed 1 tab PO BEDTIME PRN Constipation 09/23/20 11/25/21 release docusate sodium 100 mg capsule 1 cap PO BID 09/23/20 11/25/21 enalapril maleate 20 mg tablet 1 tab PO DAILY 09/23/20 11/25/21 gabapentin 100 mg capsule 1 cap PO TID 09/23/20 11/25/21 metformin 500 mg tablet,extended 2 tab PO QAM 09/23/20 11/25/21 release 24 hr omeprazole 20 mg capsule,delayed 1 cap PO BID@0630,1630 09/23/20 11/25/21 release simvastatin 20 mg tablet 1 tab PO BEDTIME 09/23/20 11/25/21 fluticasone propionate 50 1 spray intranasal DAILY 11/25/21 11/25/21 mcg/actuation nasal spray,suspension Previous Rx's Medication Instructions Recorded tramadol 50 mg tablet 50 mg PO BID PRN pain 21 days #42 05/05/21 tabs Allergies Allergy/AdvReac Type Severity Reaction Status Date / Time No Known Allergies Allergy Verified 11/15/21 11:05 [No Known Allergies*] Review of Systems Review of Systems: Review of systems: General: Patient denies any fever chills recent illness or falls Musculoskeletal: Denies back pain or body aches or other injuries HEENT: denies headache, runny nose, ear pain Respiratory: denies shortness of breath, cough Cardiovascular: no chest pain or palpitations : denies dysuria, frequency Abdomen: no nausea vomiting denies abdominal pain Extremities: no swelling, no pain Skin: no diaphoresis Yes all other systems are reviewed and are negative PMFSH Past Medical History Medical History Dementia Diabetes Diabetic neuropathy GERD (gastroesophageal reflux disease) High cholesterol Hypertension Social History Social History Alcohol intake: former Patient Tobacco Use Status: Former Tobacco user Tobacco use type: Cigarette Use of substances other than those prescribed or required for medical reasons: No Advance Directives: No Advance Directives Information Provided: No Advance Directives Date on File: 09/28/20 Physical Exam Vital Signs: Vital Signs: Last Vital Signs Temp 98.1 F 11/25/21 22:54 Pulse 83 11/25/21 22:54 Resp 20 11/25/21 22:54 BP 147/78 H 11/25/21 22:54 Pulse Ox 97 11/25/21 22:54 O2 Del Method 11/25/21 22:54 BMI result Body Mass Index 27.7 Neurological exam: CN II- XII tested. Patient is alert and oriented to person place and time. Patient has no dysphagia or dysarthia, denies good vision in all four vision liz no nystagmus on exam, good strength to upper and lower extremities with normal reflexes to brachioradialis, wrist, patella and achilles. Negative romberg, good finger to nose and heel to tejeda. General: Well-appearing well-nourished in no signs of distress HEENT: Normocephalic atraumatic Neck: No signs of JVD, no masses no tenderness or lymphadenopathy Cardiovascular: Regular rate and rhythm Respiratory: Clear to auscultation bilaterally Abdomen: Soft nontender no masses Extremities: Normal pedal pulses no signs of edema Skin: Dry warm no rashes Back: No tenderness full ROM MDM - Dizziness MDM Narrative Medical decision making narrative: 76-year-old male With 1 hour of dizziness that has since resolved he has no other symptoms. I will start the patient on fluids will get the lab work I will get a CT scan of his head as well since the patient has dizziness. Shortly after interviewing the patient his daughter who doesn't live with him arrived and stated they found him unable to speak about 120 minutes prior to arrival. He stated his tongue was heavy. He had never had any obvious stroke issues but dysarthia will require a stroke workup. I spoke with CT who stated they will change my order to get patient in and the CT read. He is not a TPA candidate as his symptoms are more than 90 minutes. CTA negative for ELVO labs are all normal I will admit for stroke workup. I explained everything to the patient and his daughter. Differential Diagnosis Differential diagnosis: Likely transient cerebral ischemia Lab Data Result diagrams: 11/25/21 20:57 11/25/21 20:57 Labs: Lab Results 11/25/21 11/25/21 11/25/21 Range/Units 20:57 20:57 20:57 WBC 8.8 (4.8-10.8) X10*3/uL RBC 5.42 (4.60-5.80) X10*6/uL Hgb 15.2 (14.0-18.0) g/dl Hct 47.6 (42.0-52.0) % MCV 87.8 (80.0-98.0) fL MCH 28.0 (27.0-33.0) pg MCHC 31.9 (31.0-36.0) g/dl RDW 11.4 (11.0-16.0) % Plt Count 205 D (160-400) X10*3/uL MPV 10.5 (9.4-12.4) fL Immature Gran % (Auto) 0.3 (0.0-0.4) % Neut % (Auto) 66.0 (45-73) % Lymph % (Auto) 22.4 (20-40) % [place] % (Auto) 8.4 (2-11) % Eos % (Auto) 1.9 (0-4) % Baso % (Auto) 1.0 (0-2) % Lymph # (Auto) 2.0 (1.2-4.9) X10*3/uL [place] # (Auto) 0.7 (0.1-1.2) X10*3/uL Eos # (Auto) 0.2 (0.0-0.4) X10*3/uL Baso # (Auto) 0.1 (0.0-0.2) X10*3/uL Abs Immat Gran (auto) 0.03 (0.00-0.03) X10*3/uL Absolute Neuts (auto) 5.8 (2.0-8.3) x10*3/uL Absolute Nucleated RBC 0.000 (0.0-0.012) X10*3/uL Nucleated RBC % (auto) 0.0 (0.0-0.2) /100WBC PT (10.0-13.1) SEC INR (0.9-1.1) APTT (26.0-36.4) SEC Sodium 139 (135-145) mmol/L Potassium 4.7 (3.3-5.1) mmol/L Chloride 101 (96-108) mmol/L Carbon Dioxide 27 (22-29) mmol/L Anion Gap 16 (12-20) BUN 15 (9-16) mg/dL Creatinine 1.16 (0.5-1.4) mg/dL Estim Creat Clear Calc 57.7 Estimated GFR > 60 Random Glucose 261 H D (60-115) mg/dL Calcium 10.3 H D (8.4-10.2) mg/dL Total Bilirubin 0.5 (0.0-1.0) mg/dL Direct Bilirubin 0.2 (0.0-0.5) mg/dL AST 27 (5-37) U/L ALT 40 (0-40) U/L Alkaline Phosphatase 107 D (39-117) U/L Total Protein 7.1 (6.5-8.0) g/dL Albumin 4.4 (3.5-5.0) g/dL Lipase 58 (8-78) U/L COVID-19 (JOANNE) Negative (Negative) COVID-19 Clin Com See Note 11/25/21 Range/Units 22:26 WBC (4.8-10.8) X10*3/uL RBC (4.60-5.80) X10*6/uL Hgb (14.0-18.0) g/dl Hct (42.0-52.0) % MCV (80.0-98.0) fL MCH (27.0-33.0) pg MCHC (31.0-36.0) g/dl RDW (11.0-16.0) % Plt Count (160-400) X10*3/uL MPV (9.4-12.4) fL Immature Gran % (Auto) (0.0-0.4) % Neut % (Auto) (45-73) % Lymph % (Auto) (20-40) % [place] % (Auto) (2-11) % Eos % (Auto) (0-4) % Baso % (Auto) (0-2) % Lymph # (Auto) (1.2-4.9) X10*3/uL [place] # (Auto) (0.1-1.2) X10*3/uL Eos # (Auto) (0.0-0.4) X10*3/uL Baso # (Auto) (0.0-0.2) X10*3/uL Abs Immat Gran (auto) (0.00-0.03) X10*3/uL Absolute Neuts (auto) (2.0-8.3) x10*3/uL Absolute Nucleated RBC (0.0-0.012) X10*3/uL Nucleated RBC % (auto) (0.0-0.2) /100WBC PT 11.9 (10.0-13.1) SEC INR 1.0 (0.9-1.1) APTT 30.0 (26.0-36.4) SEC Sodium (135-145) mmol/L Potassium (3.3-5.1) mmol/L Chloride (96-108) mmol/L Carbon Dioxide (22-29) mmol/L Anion Gap (12-20) BUN (9-16) mg/dL Creatinine (0.5-1.4) mg/dL Estim Creat Clear Calc Estimated GFR Random Glucose (60-115) mg/dL Calcium (8.4-10.2) mg/dL Total Bilirubin (0.0-1.0) mg/dL Direct Bilirubin (0.0-0.5) mg/dL AST (5-37) U/L ALT (0-40) U/L Alkaline Phosphatase (39-117) U/L Total Protein (6.5-8.0) g/dL Albumin (3.5-5.0) g/dL Lipase (8-78) U/L COVID-19 (JOANNE) (Negative) COVID-19 Clin Com Critical Care Time Critical Care Time Critical Care Time: Yes Total Critical Care Time: 45 Attestation: Patient with speech deficit that resolved complaining of dizziness labs and stroke workup multiple evaluations. Discharge Plan Discharge Clinical Impression: Transient cerebral ischemia, Speech abnormality Patient Disposition: Admitted As Inpatient
[2021-11-25] MEDS: 0.9 % Sodium Chloride 1,000 ML 999 ML IV (20:58)
[2021-11-25 21:09] LABS: MANUAL DIFF FLAG NO
[2021-11-25 21:12] LABS: Basophils Absolute Auto 0.1 X10*3/uL (0.0-0.2); Eosinophils Absolute Auto 0.2 X10*3/uL (0.0-0.4); Eosinophils Percent Auto 1.9 % (0-4); Hematocrit 47.6 % (42.0-52.0); Hemoglobin 15.2 g/dl (14.0-18.0); Imm Gran Abs Auto 0.03 X10*3/uL (0.00-0.03); Imm Gran Pct Auto 0.3 % (0.0-0.4); Lymphocytes Percent Auto 22.4 % (20-40); Mean Corpuscular HGB Conc 31.9 g/dl (31.0-36.0); Mean Corpuscular Volume 87.8 fL (80.0-98.0); Mean Platelet Volume 10.5 fL (9.4-12.4); Monocytes Absolute Auto 0.7 X10*3/uL (0.1-1.2); Monocytes Percent Auto 8.4 % (2-11); Neutrophils Absolute Auto 5.8 x10*3/uL (2.0-8.3); Platelet Count 205 X10*3/uL (160-400); Red Blood Count 5.42 X10*6/uL (4.60-5.80); Red Cell Distribution Width 11.4 % (11.0-16.0); White Blood Count 8.8 X10*3/uL (4.8-10.8)
--- NOTE | 2021-11-25 21:19 | PC.NURSE ---
Addendum entered by Sparkle Sommer 11/25/21 21:24: Pt stated his tongue felt heavy, difficulty with talking prior to EMS arrival. Follows commands, Speech is coherent, moves all extremities. Original Note: Pt stated he fell dizzy when he was sitting, he had this happened to him before. He denies any trauma or fall, no N & V, no chest pain, no recent fever. Pt is A & O X 2 , daughter stated he is confused about date on baseline. Pt was assisted to use the urinal, He stated he felt the room was spinning when he was standing. Denies weakness or lightheadedness.
[2021-11-25 21:27] LABS: Alanine Aminotransferase 40 U/L (0-40); Albumin Level 4.4 g/dL (3.5-5.0); Alkaline Phosphatase 107 U/L (39-117); Anion Gap 16 (12-20); Aspartate Amino Transferase 27 U/L (5-37); Bilirubin Direct 0.2 mg/dL (0.0-0.5); Bilirubin Total 0.5 mg/dL (0.0-1.0); Blood Urea Nitrogen 15 mg/dL (9-16); Calcium 10.3 mg/dL (8.4-10.2); Carbon Dioxide 27 mmol/L (22-29); Chloride 101 mmol/L (96-108); Creatinine Clr Calc Pharmacy 57.7; Estimated Glomerular Filt Rate > 60; Glucose Random 261 mg/dL (60-115); Lipase 58 U/L (8-78); Potassium 4.7 mmol/L (3.3-5.1); Sodium 139 mmol/L (135-145); Total Protein 7.1 g/dL (6.5-8.0)
[2021-11-25 21:41] LABS: COVID-19 Test Negative (Negative)
[2021-11-25] MEDS: iohexoL 350 MG/ML 100 ML INFUS..BTL IV (22:18)
[2021-11-25 22:35] LABS: Stroke Lab Use COMPLETE
[2021-11-25 22:38] LABS: Prothrombin Time 11.9 SEC (10.0-13.1)
[2021-11-25 22:54] VITALS: BP 147/78; PULSE 83; RESP 20; TEMP 36.7; O2SAT 97
--- NOTE | 2021-11-25 22:58 | PC.NURSE ---
Pt assited with urinal, needed help with movement. Denies weakness and dizziness. Resting comfortably, vitals are stable. Daughter at bedside.
--- NOTE | 2021-11-25 23:07 | PHA.MEDREC ---
Pharmacy Consult ? Medication Reconciliation Pharmacy has completed the medication reconciliation.
[2021-11-25 23:26] VITALS: BP 151/74; PULSE 72; RESP 21; O2SAT 97
--- NOTE | 2021-11-25 23:48 | PM.IMHP ---
History of Present Illness Date of Service: 11/25/21 Chief Complaint: Slurring of speech This is a 76-year-old male with a pertinent history of essential hypertension, type 2 diabetes mellitus with neuropathy, gastroesophageal reflux disease who presents to the emergency department for evaluation of slurred speech, drooping of mouth and blurring of vision. Patient states 1 night prior to presentation while he was sitting up in chair watching TV, he had sudden-onset blurring of vision, drooping of mouth to the right side and speech impairment. This episode lasted 15 minutes. No history of similar episodes in the past. No loss of consciousness, jerking movements of extremities, tongue bite or urinary or bowel incontinence. Patient states that his deficits have completely resolved currently. Denies history of stroke. Aspirin is on his list of home medications but he does not think that he takes it. Patient denies fever, chills, chest discomfort, palpitations, shortness of breath, abdominal discomfort, changes in urinary or bowel habits. No complaints at the time of my evaluation. History obtained via lang interpreter Review of Systems Review of Systems: All 13 review of systems are negative except as noted in [facility] Medical History (Updated 11/25/21 @ 23:56 by Bobo Grajeda MD) Chronic pain syndrome Degenerative disc disease, lumbar Dementia Diabetes Diabetic neuropathy GERD (gastroesophageal reflux disease) High cholesterol Hypertension Spinal stenosis of lumbar region at multiple levels Spondylosis of lumbar spine Functional capacity: uses cane/walker Surgical History Status post right knee replacement Social History Alcohol intake: former Patient Tobacco Use Status: Former Tobacco user Tobacco use type: Cigarette Use of substances other than those prescribed or required for medical reasons: No Advance Directives: No Advance Directives Information Provided: No Advance Directives Date on File: 09/28/20 Meds Allergies Allergy/AdvReac Type Severity Reaction Status Date / Time No Known Allergies Allergy Verified 11/15/21 11:05 [No Known Allergies*] Active Medications: Current Medications Acetaminophen (Acetaminophen 325 Mg Tablet) 650 mg PO Q6H PRN PRN Reason: Pain, Mild (Pain Scale 1-3) Aspirin (Aspirin Enteric Coated 81 Mg Tablet.) 81 mg PO DAILY CHARLY Atorvastatin Calcium (Atorvastatin Calcium 40 Mg Tablet) 40 mg PO DAILY COUNTS INCLUDE 234 BEDS AT THE [facility] Bisacodyl (Bisacodyl 5 Mg Tablet.) 5 mg PO BEDTIME PRN PRN Reason: Constipation Dextrose (Dextrose 50 % 25 Gm/50 Ml Syringe) 25 gm IVPUSH Q15M PRN; Protocol PRN Reason: per Hypoglycemia Standing Ord. Docusate Sodium (Docusate Sodium 100 Mg Capsule) 100 mg PO BID COUNTS INCLUDE 234 BEDS AT THE [facility] Fluticasone Propionate (Fluticasone Propionate Nasal 16 Gm [place]) 1 spray NOSTRIL-B DAILY COUNTS INCLUDE 234 BEDS AT THE [facility] Gabapentin (Gabapentin 100 Mg Capsule) 100 mg PO TID COUNTS INCLUDE 234 BEDS AT THE [facility] Glucose (Glucose Gel 15 Gm Gel..Gram.) 15 gm PO Q15M PRN; Protocol PRN Reason: per Hypoglycemia Standing Ord. Insulin Human Lispro (Insulin Lispro 100 Unit/Ml 3 Ml Vial) 0 unit SUBCUT QIDACHS COUNTS INCLUDE 234 BEDS AT THE [facility]; Protocol Stop: 11/26/21 23:46 Melatonin (Melatonin 3 Mg Tablet) 6 mg PO BEDTIME PRN PRN Reason: Insomnia Omeprazole (Omeprazole 20 Mg Capsule.) 20 mg PO BID@0630,1630 COUNTS INCLUDE 234 BEDS AT THE [facility] Ondansetron HCl (Ondansetron Hcl 4 Mg/2 Ml Vial) 4 mg IVPUSH Q8H PRN PRN Reason: Nausea and Vomiting Pharmacy Consult (Consult Rx Perform Med Rec) 1 each MISCELLANE ONCE PRN PRN Reason: Consult order Pharmacy Consult (Consult Rx Perform Med Rec) 1 each MISCELLANE ONCE PRN PRN Reason: Consult order Home Medications Medication Instructions Recorded Confirmed Last Taken Type amlodipine 5 mg tablet 1 tab PO DAILY 09/23/20 11/25/21 09/23/20 History aspirin 81 mg tablet,delayed 1 tab PO DAILY 09/23/20 11/25/21 09/23/20 History release bisacodyl 5 mg tablet,delayed 1 tab PO BEDTIME PRN Constipation 09/23/20 11/25/21 Unknown History release docusate sodium 100 mg capsule 1 cap PO BID 09/23/20 11/25/21 09/23/20 History enalapril maleate 20 mg tablet 1 tab PO DAILY 09/23/20 11/25/21 09/23/20 History gabapentin 100 mg capsule 1 cap PO TID 09/23/20 11/25/21 09/23/20 History metformin 500 mg tablet,extended 2 tab PO QAM 09/23/20 11/25/21 09/23/20 History release 24 hr omeprazole 20 mg capsule,delayed 1 cap PO BID@0630,1630 09/23/20 11/25/21 09/23/20 History release simvastatin 20 mg tablet 1 tab PO BEDTIME 09/23/20 11/25/21 09/22/20 History fluticasone propionate 50 1 spray intranasal DAILY 11/25/21 11/25/21 Unknown History mcg/actuation nasal spray,suspension Physical Exam Vital Signs and Narrative: Vital Signs: Last Vital Signs Temp 98.1 F 11/25/21 22:54 Pulse 72 11/25/21 23:26 Resp 21 H 11/25/21 23:26 BP 151/74 H 11/25/21 23:26 Pulse Ox 97 11/25/21 23:26 O2 Del Method 11/25/21 23:26 BMI result Body Mass Index 27.7 Elderly male lying in bed in no distress Neck supple, no JVD Regular rate and rhythm, S1-S2 heard Regular breath sounds bilaterally, no wheezing or crackles appreciated Abdomen soft nontender, no guarding, no rigidity Patient is awake, alert and oriented to self, place, time and person ; strength equal in bilateral upper and lower extremity, no facial droop, no ophthalmoplegia, no pronator drift, normal shoulder shrug, no tongue or uvular deviation, did not walk the patient in the ER, no dysarthria Psych: Normal mood No pedal edema Results Labs CBC and Chem 7: 11/25/21 20:57 11/25/21 20:57 Labs: Laboratory Results - last 24 hr 11/25/21 11/25/21 11/25/21 20:57 20:57 20:57 MCV 87.8 MCH 28.0 MCHC 31.9 RDW 11.4 Plt Count 205 D MPV 10.5 Immature Gran % (Auto) 0.3 Neut % (Auto) 66.0 Lymph % (Auto) 22.4 Gooding % (Auto) 8.4 Eos % (Auto) 1.9 Baso % (Auto) 1.0 Lymph # (Auto) 2.0 Gooding # (Auto) 0.7 Eos # (Auto) 0.2 Baso # (Auto) 0.1 Abs Immat Gran (auto) 0.03 Absolute Neuts (auto) 5.8 Absolute Nucleated RBC 0.000 Nucleated RBC % (auto) 0.0 PT INR APTT Anion Gap 16 Estim Creat Clear Calc 57.7 Estimated GFR > 60 Random Glucose 261 H D Calcium 10.3 H D Total Bilirubin 0.5 Direct Bilirubin 0.2 AST 27 ALT 40 Alkaline Phosphatase 107 D Total Protein 7.1 Albumin 4.4 Lipase 58 COVID-19 (JOANNE) Negative COVID-19 Clin Com See Note 11/25/21 22:26 MCV MCH MCHC RDW Plt Count MPV Immature Gran % (Auto) Neut % (Auto) Lymph % (Auto) Gooding % (Auto) Eos % (Auto) Baso % (Auto) Lymph # (Auto) Gooding # (Auto) Eos # (Auto) Baso # (Auto) Abs Immat Gran (auto) Absolute Neuts (auto) Absolute Nucleated RBC Nucleated RBC % (auto) PT 11.9 INR 1.0 APTT 30.0 Anion Gap Estim Creat Clear Calc Estimated GFR Random Glucose Calcium Total Bilirubin Direct Bilirubin AST ALT Alkaline Phosphatase Total Protein Albumin Lipase COVID-19 (JOANNE) COVID-19 Clin Com Imaging Radiologist's Impressions: Impressions Chest X-Ray 11/25/21 21:36 IMPRESSION: Mildly hypoexpanded with basilar markings more likely due to atelectasis. No focal airspace disease otherwise Head/Neck CTA 11/25/21 22:15 IMPRESSION: 1. No intracranial hemorrhage or acute edematous territorial infarct identified. 2. 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 No other hematoma dynamically significant stenosis identified. 3. No intracranial aneurysm or vascular occlusion/cut off. Assessment and Plan (1) Transient cerebral ischemia: Status: Acute (2) Degenerative disc disease, lumbar: Status: Acute (3) Chronic pain syndrome: Status: Acute (4) Type 2 diabetes mellitus: Status: Acute (5) Hypertension: Status: Acute (6) Diabetic neuropathy: Status: Acute (7) GERD (gastroesophageal reflux disease): Status: Acute Plan This is a 76-year-old male with a pertinent history of essential hypertension, type 2 diabetes mellitus with neuropathy, gastroesophageal reflux disease who presents to the emergency department for evaluation of slurred speech, drooping of mouth and blurring of vision. #. Transient ischemic attack -ABCD2 score 5: Moderate risk. Will admit patient with laboratory monitor. Obtaining A1c and lipid panel to optimize risk factors. Obtaining MRI of the head and consulting cardiology. Also obtaining echocardiogram. NPO until patient passes bedside swallow screen. Initiating aspirin and increasing statin to high-intensity dosage #. Type 2 diabetes mellitus with neuropathy and hyperglycemia -hold home metformin, initiate Accu-Cheks with sliding scale insulin before meals and at bedtime. #. Essential hypertension -continue enalapril and amlodipine as patient has recovered to his neurologic baseline and no indication for permissive hypertension #. Chronic pain syndrome due to degenerative disc disease -on tramadol p.r.n. #. Gastroesophageal reflux disease -on PPI Diet: Cardiac diet after patient passes swallow screen Code status: Full code DVT prophylaxis: Lovenox 40 mg daily Patient meets inpatient criteria for evaluation and management of transient ischemic attack. Quality Stroke Does the patient have a stroke diagnosis?: Yes Reason for No Anti-thrombotic by Day Two: N/A - Med Ordered VTE Prior VTE?: No VTE Risk Level:: Medical - moderate - high VTE Device Contraindication: Treatment Not Indicated VTE Drug Contraindication: N/A - Med Ordered
[2021-11-26 00:19] LABS: Cholesterol 133 mg/dL; HDL Cholesterol 28 mg/dL; Triglycerides 411 mg/dL
[2021-11-26] MEDS: Aspirin 81 MG TAB.CHEW 324 MG PO (00:21)
[2021-11-26] MEDS: Enoxaparin Sodium 40 MG/0.4 ML SYRINGE SUBCUT (01:12)
[2021-11-26 04:42] VITALS: BP 136/71; PULSE 68; RESP 24; TEMP 36.7; O2SAT 94
--- NOTE | 2021-11-26 07:00 | CA_ITS ---
Transthoracic Echocardiogram Patient (Last, First, Middle): Jono Lua, Gender: Male Date of : 1945 Age: 76 Procedure Date: 11/26/2021 Procedure Type: Transthoracic E[place] [facility] [place]: 175.26 cm Weight: 85.28 kg BSA: 2.01 m2 Heart Rate: bpm BP: 136 / 71 mmHg Card Scraper: Referring MD: Bobo Grajeda MD Symptoms: TIA Study Quality: Fair ECG Rhythm: Sinus Conclusions: - The left ventricular systolic function is normal. The visually estimated ejection fraction is between 55-60%. - There is mild calcification of the aortic valve. - No obvious valvular pathology seen on this study. Findings Left Ventricle Normal left ventricular cavity size. There is mildly increased left ventricular wall thickness. The left ventricular systolic function is normal. The visually estimated ejection fraction is between 55-60%. There is no evidence of regional wall motion abnormalities. Diastolic function is normal for age. Right Ventricle Normal right ventricular cavity size and systolic function. Atria Both atria are normal in size. Aortic Valve There is a normal trileaflet aortic valve. There is mild calcification of the aortic valve. There is no aortic valve stenosis. There is no aortic valve regurgitation. Mitral Valve The mitral valve appears normal. There is no mitral valve regurgitation. There is no mitral valve stenosis. Pulmonic Valve The pulmonic valve is likely normal. Tricuspid Valve There is trace tricuspid valve regurgitation. There is no evidence of pulmonary hypertension. Great Vessels The asc aorta is normal in size. Venous The inferior vena cava is normal in size and collapses greater than 50% with inspiration. Pericardium/Pleural There is no evidence of pericardial effusion. Prior Study Comparison No significant change compared to prior study dated: 09/23/2020. Recommendations, Care & Conclusions No obvious valvular pathology seen on this study. Measurements 2D Linear Measurements IVSd: 1.20 0.6-0.9/0.6-1.0 cm LVIDd: 4.05 3.9-5.3/4.2-5.9 cm LVIDd Index: 2.01 2.4-3.2/2.2-3.1 cm/m2 LVIDs: 2.66 2.0-3.6 cm LVPWd: 1.20 0.7-1.1 cm Ao Root: 3.40 2.1-3.5 cm LA Diam: 3.80 2.7-3.8/3.0-4.0 cm LAIDs Index: 1.89 1.5-2.3 cm/m2 LV Mass: 209.98 67-162/88-224 g LV Mass Index: 104.47 43-95/49-115 g/m2 LVOT Diam: 2.00 3.0+(-)1.3 cm Mitral Valve MV Pk E: 0.55 MV PK A: 1.05 MV Decel Time: 298.00 E/A: 0.50 E'Lateral: 4.90 E'Medial: 3.48 E/E' Med: 15.90 E/E' Lat: 11.30 PHT: 87.00 MVA PHT: 2.53 Decel [place]: 1.85 Aortic Valve AoV Pk Carlos: 1.61 AoV Mn Carlos: 1.01 AoV VTI: 0.40 AoV Pk Grad: 10.00 Aov Mn Grad: 5.00 PETROS Cont.VTI: 1.60 LVOT LVOT Pk Carlos: 0.75 LVOT Mn Carlos: 0.49 LVOT VTI: 0.20 LVOT Pk Grad: 2.00 LVOT Mn Grad: 1.00 LVOT Diam: 2.00 LVOT Area: 3.14 Diastolic Function MV Pk E: 0.55 MV Pk A: 1.05 E/A: 0.50 E'Medial: 3.48 E/E' Med: 15.90 E' Laterial: 4.90 E/E' Lat: 11.30 Right Ventricle TAPSE (mm): 18.00 TVS' Carlos: 12.00 Tricuspid Valve TR Pk Carlos: 2.00 TR Pk Grad: 16.00 RA Press: 3.00 RVSP: 19.00 Great Vessels Aorta Ao Root-2D: 3.40 2.0-3.7 cm Pulmonary Valve PV Pk Carlos: 0.98 Peak PV Grad: 4.00 Updated in Other Vendor System with Status of Final Ta Jo MD electronically signed on 11/26/2021 2:44:14 PM with status of Final
[2021-11-26 07:10] LABS: MANUAL DIFF FLAG NO
[2021-11-26 07:10] LABS: Estimated Average Glucose 160 mg/dL; Hemoglobin A1c % 7.2 %
[2021-11-26 07:13] LABS: Basophils Absolute Auto 0.1 X10*3/uL (0.0-0.2); Basophils Percent Auto 0.8 % (0-2); Eosinophils Absolute Auto 0.2 X10*3/uL (0.0-0.4); Eosinophils Percent Auto 2.2 % (0-4); Hematocrit 43.4 % (42.0-52.0); Hemoglobin 14.3 g/dl (14.0-18.0); Imm Gran Abs Auto 0.02 X10*3/uL (0.00-0.03); Imm Gran Pct Auto 0.2 % (0.0-0.4); Lymphocytes Absolute Auto 2.5 X10*3/uL (1.2-4.9); Lymphocytes Percent Auto 27.7 % (20-40); Mean Corpuscular HGB Conc 32.9 g/dl (31.0-36.0); Mean Corpuscular Hemoglobin 28.7 pg (27.0-33.0); Mean Corpuscular Volume 87.1 fL (80.0-98.0); Mean Platelet Volume 10.7 fL (9.4-12.4); Monocytes Absolute Auto 0.9 X10*3/uL (0.1-1.2); Monocytes Percent Auto 9.7 % (2-11); Neutrophils Absolute Auto 5.4 x10*3/uL (2.0-8.3); Neutrophils Percent Auto 59.4 % (45-73); Platelet Count 188 X10*3/uL (160-400); Red Blood Count 4.98 X10*6/uL (4.60-5.80); Red Cell Distribution Width 11.2 % (11.0-16.0); White Blood Count 9.1 X10*3/uL (4.8-10.8)
[2021-11-26 07:35] LABS: Anion Gap 12 (12-20); Blood Urea Nitrogen 11 mg/dL (9-16); Calcium 9.3 mg/dL (8.4-10.2); Carbon Dioxide 25 mmol/L (22-29); Chloride 104 mmol/L (96-108); Cholesterol 105 mg/dL; Creatinine Clr Calc Pharmacy 63.7; Estimated Glomerular Filt Rate > 60; Glucose Random 179 mg/dL (60-115); HDL Cholesterol 29 mg/dL; LDL Cholesterol Calculated 52 mg/dl; Potassium 4.2 mmol/L (3.3-5.1); Sodium 137 mmol/L (135-145); Triglycerides 122 mg/dL
--- NOTE | 2021-11-26 08:33 | PC.NURSE ---
PT A/O X 4 WITH [employer]. NO SOB/JAXON NOTED LUNGS - CTA, HEART SOUNDS - IRREGULAR. ABD SOFT, NT, = BS X 4 QUADS. PT ATE 100 OF BREAKFAST. PT AWARE OF PLAN OF CARE.
--- NOTE | 2021-11-26 08:45 | PC.NURSE ---
pt seen by dr. jackson, pt aware of plan of care.
--- NOTE | 2021-11-26 09:14 | PC.NURSE ---
pt bed was wet with urine, changed pt gown and linens. pt given urinal and readjusted in bed. pt resting comfortably
--- NOTE | 2021-11-26 09:30 | PC.NURSE ---
pt's sister's phone # [phone] and pt's biological engineer's # [phone]. pt states that it is okay to give either of these person info about him.
[2021-11-26 09:33] VITALS: BP 142/78; PULSE 66; RESP 12; TEMP 36.6; O2SAT 97
[2021-11-26] MEDS: Docusate Sodium 100 MG CAPSULE PO ×2 (09:34→22:50)
[2021-11-26] MEDS: Gabapentin 100 MG CAPSULE PO ×3 (09:34→22:50)
[2021-11-26] MEDS: amLODIPine Besylate 5 MG TABLET PO (09:35)
[2021-11-26] MEDS: Atorvastatin Calcium 40 MG TABLET PO (09:35)
[2021-11-26] MEDS: Omeprazole 20 MG CAPSULE.DR PO ×2 (09:36→17:29)
[2021-11-26] MEDS: Enalapril Maleate 10 MG TABLET 20 MG PO (09:36)
[2021-11-26] MEDS: Insulin Lispro 100 UNIT/ML 3 ML VIAL SUBCUT ×4 (09:36→22:51)
[2021-11-26] MEDS: Fluticasone Propionate Nasal 16 GM SPRAY 1 SPRAY NOSTRIL-B (09:36)
[2021-11-26 09:51] VITALS: BP 142/78; PULSE 66; O2SAT 97
--- NOTE | 2021-11-26 10:06 | P.PNIM_ITS ---
Subjective Subjective Date of Service: 11/26/21 Interval History: f/u on TIA slur speech All symptoms resolved Review of Systems no weaknes, normal speech Physical Exam Vital Signs: Vital Signs: Last Vital Signs Temp 97.8 F 11/26/21 09:33 Pulse 66 11/26/21 09:51 Resp 12 11/26/21 09:33 BP 142/78 H 11/26/21 09:51 Pulse Ox 97 11/26/21 09:51 O2 Del Method 11/26/21 09:33 BMI result Body Mass Index 27.7 Objective Data Active Medications Acetaminophen (Acetaminophen 325 Mg Tablet) 650 mg PO Q6H PRN PRN Reason: Pain, Mild (Pain Scale 1-3) Amlodipine Besylate (Amlodipine Besylate 5 Mg Tablet) 5 mg PO DAILY [facility]; Protocol Last Admin: 11/26/21 09:35 Dose: 5 mg Documented By: CARLOS Aspirin (Aspirin Enteric Coated 81 Mg Tablet.) 81 mg PO DAILY [facility] Last Admin: 11/26/21 09:35 Dose: Not Given Documented By: CARLOS Non-Admin Reason: Duplicate Order Atorvastatin Calcium (Atorvastatin Calcium 40 Mg Tablet) 40 mg PO DAILY [facility] Last Admin: 11/26/21 09:35 Dose: 40 mg Documented By: CARLOS Bisacodyl (Bisacodyl 5 Mg Tablet.) 5 mg PO BEDTIME PRN PRN Reason: Constipation Dextrose (Dextrose 50 % 25 Gm/50 Ml Syringe) 25 gm IVPUSH Q15M PRN; Protocol PRN Reason: per Hypoglycemia Standing Ord. Docusate Sodium (Docusate Sodium 100 Mg Capsule) 100 mg PO BID [facility] Last Admin: 11/26/21 09:34 Dose: 100 mg Documented By: CARLOS Enalapril Maleate (Enalapril Maleate 10 Mg Tablet) 20 mg PO DAILY [facility]; Protocol Last Admin: 11/26/21 09:36 Dose: 20 mg Documented By: CARLOS Enoxaparin Sodium (Enoxaparin Sodium 40 Mg/0.4 Ml Syringe) 40 mg SUBCUT Q24H [facility] Last Admin: 11/26/21 01:12 Dose: 40 mg Documented By: BRAYAN Fluticasone Propionate (Fluticasone Propionate Nasal 16 Gm [place]) 1 spray NOSTRIL-B DAILY [facility] Last Admin: 11/26/21 09:36 Dose: 1 spray Documented By: CARLOS Gabapentin (Gabapentin 100 Mg Capsule) 100 mg PO TID [facility] Last Admin: 11/26/21 09:34 Dose: 100 mg Documented By: CARLOS Glucose (Glucose Gel 15 Gm Gel..Gram.) 15 gm PO Q15M PRN; Protocol PRN Reason: per Hypoglycemia Standing Ord. Insulin Human Lispro (Insulin Lispro 100 Unit/Ml 3 Ml Vial) 0 unit SUBCUT QIDACHS [facility]; Protocol Stop: 11/26/21 23:46 Last Admin: 11/26/21 09:36 Dose: 2 unit Documented By: CARLOS Melatonin (Melatonin 3 Mg Tablet) 6 mg PO BEDTIME PRN PRN Reason: Insomnia Omeprazole (Omeprazole 20 Mg Capsule.Dr) 20 mg PO BID@0630,1630 [facility] Last Admin: 11/26/21 09:36 Dose: 20 mg Documented By: CARLOS Ondansetron HCl (Ondansetron Hcl 4 Mg/2 Ml Vial) 4 mg IVPUSH Q8H PRN PRN Reason: Nausea and Vomiting Pharmacy Consult (Consult Rx Perform Med Rec) 1 each MISCELLANE ONCE PRN PRN Reason: Consult order Pharmacy Consult (Consult Rx Perform Med Rec) 1 each MISCELLANE ONCE PRN PRN Reason: Consult order Tramadol HCl (Tramadol Hcl 50 Mg Tablet) 50 mg PO Q6H PRN PRN Reason: Pain, Moderate (Pain Scale 4-6 Labs CBC & Chem 7: 11/26/21 06:52 11/26/21 06:52 Labs: Laboratory Results - last 24 hr 11/25/21 11/25/21 11/25/21 20:57 20:57 20:57 MCV 87.8 MCH 28.0 MCHC 31.9 RDW 11.4 Plt Count 205 D MPV 10.5 Immature Gran % (Auto) 0.3 Neut % (Auto) 66.0 Lymph % (Auto) 22.4 [place] % (Auto) 8.4 Eos % (Auto) 1.9 Baso % (Auto) 1.0 Lymph # (Auto) 2.0 [place] # (Auto) 0.7 Eos # (Auto) 0.2 Baso # (Auto) 0.1 Abs Immat Gran (auto) 0.03 Absolute Neuts (auto) 5.8 Absolute Nucleated RBC 0.000 Nucleated RBC % (auto) 0.0 PT INR APTT Anion Gap 16 Estim Creat Clear Calc 57.7 Estimated GFR > 60 Random Glucose 261 H D Estimat Average Glucose Hemoglobin A1c % Calcium 10.3 H D Total Bilirubin 0.5 Direct Bilirubin 0.2 AST 27 ALT 40 Alkaline Phosphatase 107 D Total Protein 7.1 Albumin 4.4 Triglycerides Cholesterol LDL Cholesterol, Calc HDL Cholesterol Lipase 58 COVID-19 (JOANNE) Negative COVID-19 Clin Com See Note 11/25/21 11/25/21 11/25/21 20:57 20:57 22:26 MCV MCH MCHC RDW Plt Count MPV Immature Gran % (Auto) Neut % (Auto) Lymph % (Auto) [place] % (Auto) Eos % (Auto) Baso % (Auto) Lymph # (Auto) [place] # (Auto) Eos # (Auto) Baso # (Auto) Abs Immat Gran (auto) Absolute Neuts (auto) Absolute Nucleated RBC Nucleated RBC % (auto) PT 11.9 INR 1.0 APTT 30.0 Anion Gap Estim Creat Clear Calc Estimated GFR Random Glucose Estimat Average Glucose 160 Hemoglobin A1c % 7.2 Calcium Total Bilirubin Direct Bilirubin AST ALT Alkaline Phosphatase Total Protein Albumin Triglycerides 411 Cholesterol 133 LDL Cholesterol, Calc TNP HDL Cholesterol 28 D Lipase COVID-19 (JOANNE) COVID-19 Clin Com 11/26/21 11/26/21 11/26/21 06:52 06:52 06:52 MCV 87.1 MCH 28.7 MCHC 32.9 RDW 11.2 Plt Count 188 MPV 10.7 Immature Gran % (Auto) 0.2 Neut % (Auto) 59.4 Lymph % (Auto) 27.7 [place] % (Auto) 9.7 Eos % (Auto) 2.2 Baso % (Auto) 0.8 Lymph # (Auto) 2.5 [place] # (Auto) 0.9 Eos # (Auto) 0.2 Baso # (Auto) 0.1 Abs Immat Gran (auto) 0.02 Absolute Neuts (auto) 5.4 Absolute Nucleated RBC 0.000 Nucleated RBC % (auto) 0.0 PT INR APTT Anion Gap 12 Estim Creat Clear Calc 63.7 Estimated GFR > 60 Random Glucose 179 H Estimat Average Glucose Hemoglobin A1c % Calcium 9.3 D Total Bilirubin Direct Bilirubin AST ALT Alkaline Phosphatase Total Protein Albumin Triglycerides 122 Cholesterol 105 D LDL Cholesterol, Calc 52 HDL Cholesterol 29 Lipase COVID-19 (JOANNE) COVID-19 Clin Com Assessment and Plan (1) Transient cerebral ischemia: Status: Acute Assessment and Plan: 75-year-old male with a past medical history of hypertension, hyperlipidemia, diabetes, diabetic neuropathy presented to the hospital with a chief complaint of slurred speech/left facial droop. Symptoms improved. Admitted for TIA workup. 1.TIA: Patient currently symptoms resolved. Nonfocal examination. Carotid dupplex, echo PT/OT Neuro checks Troponin [id number] continue aspirin statin. 2. Diabetes: Hold home metformin. Insulin sliding scale. Hypertension/hyperlipidemia: Continue amlodipine ,lisinopril. need for inaptient: TIA work and close monitoring for stroke likely dc home after neuro eval Quality Stroke Does the patient have a stroke diagnosis?: Yes Reason for No Anti-thrombotic by Day Two: N/A - Med Ordered VTE Prior VTE?: No VTE Risk Level:: Medical - moderate - high VTE Device Contraindication: Treatment Not Indicated VTE Drug Contraindication: N/A - Med Ordered
--- NOTE | 2021-11-26 10:42 | PM.DS ---
DS: Providers Provider Date of Service: 11/26/21 <Giuliano Gipson MD - Last Filed: 11/26/21 10:47> Date of admission: 11/25/21 23:40 <Giuliano Gipson MD - Last Filed: 11/26/21 10:47> Primary care physician: [facility] <Giuliano Gipson MD - Last Filed: 11/26/21 10:47> Consults: 11/25/21 23:40 Consult to Neurology Routine Consulting Provider: [facility] Reason for consultation: TIA Has provider been notified: No <Giuliano Gipson MD - Last Filed: 11/26/21 10:47> DS: Diagnosis Discharge Diagnosis (1) Transient cerebral ischemia: Status: Acute <Giuliano Gipson MD - Last Filed: 11/26/21 10:47> DS: Summary Hospital Course Hospital Course: Chief Complaint: Slurring of speech This is a 76-year-old male with a pertinent history of essential hypertension, type 2 diabetes mellitus with neuropathy, gastroesophageal reflux disease who presents to the emergency department for evaluation of slurred speech, drooping of mouth and blurring of vision.? Patient states 1 night prior to presentation while he was sitting up in chair watching TV, he had sudden-onset blurring of vision, drooping of mouth to the right side and speech impairment.? This episode lasted 15 minutes.? No history of similar episodes in the past.? No loss of consciousness, jerking movements of extremities, tongue bite or urinary or bowel incontinence.? Patient states that his deficits have completely resolved currently.? Denies history of stroke.? Aspirin is on his list of home medications but he does not think that he takes it.? Patient denies fever, chills, chest discomfort, palpitations, shortness of breath, abdominal discomfort, changes in urinary or bowel habits.? No complaints at the time of my evaluation.? History obtained via audio/visual operator. Hospital course: Patient presented with transient slur speech that has completley resolved. There was concern of stroke however CT head and neck thus far unremarkable. MRI brain negative for infarct. Echocardiogram with low normal systolic function, normal diastolic function, EF 55-60%, mild calcification of aortic valve, otherwise no valvular pathology. Glucose levels elevated to 221, started on sliding scale insulin. LDL 52. Taking atorvastatin and baby aspirin, continue on discharge to reduce risk of stroke. Patient advised on importance of close glucose control and management of blood pressures to reduce risk of stroke. Patient ambulates with rolling walker at baseline. PT consulted noting gross deconditioning with impaired bed mobility, gait pattern, joint ROM, safety awareness, standing/balance/transfer ability, and muscle imbalance/weakness recommending pt be discharged with home PT which is ordered. <Giuliano Gipson MD - Last Filed: 11/26/21 10:47> Status at Discharge Functional status at discharge: uses cane/walker <DEVIN Rose - Last Filed: 11/27/21 17:09> Overall status at discharge: patient is back to baseline <DEVIN Rose - Last Filed: 11/27/21 17:09> Time Spent with Patient Time attestation: Total time spent providing and/or coordinating discharge services: <Giuliano Gipson MD - Last Filed: 11/26/21 10:47> Discharge coordination time: Greater than 30 minutes <DEVIN Rose - Last Filed: 11/27/21 17:09> Quality: Safe Use of Opioids Does Pt have an Active Cancer Diagnosis on the Problem List?: No <DEVIN Rose - Last Filed: 11/27/21 17:09> Quality: Stroke Does the patient have a stroke diagnosis?: No <DEVIN Rose - Last Filed: 11/27/21 17:09> Physical Exam Vital Signs: Vital Signs: Last Vital Signs Temp 97.8 F 11/26/21 09:33 Pulse 66 11/26/21 09:51 Resp 12 11/26/21 09:33 BP 142/78 H 11/26/21 09:51 Pulse Ox 97 11/26/21 09:51 O2 Del Method 11/26/21 09:33 BMI result Body Mass Index 27.7 <Giuliano Gipson MD - Last Filed: 11/26/21 10:47> Constitutional - Awake and Alert, No apparent distress Eyes - PERRLA, EOMI Cardiovascular - S1S2, RRR, No edema Respiratory - Normal lung expansion, Normal respiratory effort, No respiratory distress, CTA bilaterally Gastrointestinal - NT / ND; +BS; No rebound or guarding Extremities - no calf tenderness bilaterally, no swelling Musculoskeletal - Normal inspection, normal ROM Skin - Warm/Dry Neurological - Alert & oriented x3, CN II-XII in tact, 4/5 strength right extremities, 5/5 strength left extremities, no sensory deficit Psychological - Appropriate affect <DEVIN Rose - Last Filed: 11/27/21 17:09> Const: Other: General: AO X 3, no acute distress Resp: CTA bilateral CVS: S1,S2,RRR GI: +BS, NT, no distention Skin: No rash Neuro: motor grossly intact Psych: appropriate affect <Giuliano MD Brandan - Last Filed: 11/26/21 10:47> DS: Data Data Completed and Pending Labs on day of discharge: Laboratory Results - last 24 hr 11/25/21 11/25/21 11/25/21 20:57 20:57 20:57 WBC 8.8 RBC 5.42 Hgb 15.2 Hct 47.6 MCV 87.8 MCH 28.0 MCHC 31.9 RDW 11.4 Plt Count 205 D MPV 10.5 Immature Gran % (Auto) 0.3 Neut % (Auto) 66.0 Lymph % (Auto) 22.4 [place] % (Auto) 8.4 Eos % (Auto) 1.9 Baso % (Auto) 1.0 Lymph # (Auto) 2.0 [place] # (Auto) 0.7 Eos # (Auto) 0.2 Baso # (Auto) 0.1 Abs Immat Gran (auto) 0.03 Absolute Neuts (auto) 5.8 Absolute Nucleated RBC 0.000 Nucleated RBC % (auto) 0.0 PT INR APTT Sodium 139 Potassium 4.7 Chloride 101 Carbon Dioxide 27 Anion Gap 16 BUN 15 Creatinine 1.16 Estim Creat Clear Calc 57.7 Estimated GFR > 60 Random Glucose 261 H D Estimat Average Glucose Hemoglobin A1c % Calcium 10.3 H D Total Bilirubin 0.5 Direct Bilirubin 0.2 AST 27 ALT 40 Alkaline Phosphatase 107 D Total Protein 7.1 Albumin 4.4 Triglycerides Cholesterol LDL Cholesterol, Calc HDL Cholesterol Lipase 58 COVID-19 (JOANNE) Negative COVID-19 Clin Com See Note 11/25/21 11/25/21 11/25/21 20:57 20:57 22:26 WBC RBC Hgb Hct MCV MCH MCHC RDW Plt Count MPV Immature Gran % (Auto) Neut % (Auto) Lymph % (Auto) [place] % (Auto) Eos % (Auto) Baso % (Auto) Lymph # (Auto) [place] # (Auto) Eos # (Auto) Baso # (Auto) Abs Immat Gran (auto) Absolute Neuts (auto) Absolute Nucleated RBC Nucleated RBC % (auto) PT 11.9 INR 1.0 APTT 30.0 Sodium Potassium Chloride Carbon Dioxide Anion Gap BUN Creatinine Estim Creat Clear Calc Estimated GFR Random Glucose Estimat Average Glucose 160 Hemoglobin A1c % 7.2 Calcium Total Bilirubin Direct Bilirubin AST ALT Alkaline Phosphatase Total Protein Albumin Triglycerides 411 Cholesterol 133 LDL Cholesterol, Calc TNP HDL Cholesterol 28 D Lipase COVID-19 (JOANNE) COVID-19 Clin Com 11/26/21 11/26/21 11/26/21 06:52 06:52 06:52 WBC 9.1 RBC 4.98 Hgb 14.3 Hct 43.4 MCV 87.1 MCH 28.7 MCHC 32.9 RDW 11.2 Plt Count 188 MPV 10.7 Immature Gran % (Auto) 0.2 Neut % (Auto) 59.4 Lymph % (Auto) 27.7 [place] % (Auto) 9.7 Eos % (Auto) 2.2 Baso % (Auto) 0.8 Lymph # (Auto) 2.5 [place] # (Auto) 0.9 Eos # (Auto) 0.2 Baso # (Auto) 0.1 Abs Immat Gran (auto) 0.02 Absolute Neuts (auto) 5.4 Absolute Nucleated RBC 0.000 Nucleated RBC % (auto) 0.0 PT INR APTT Sodium 137 Potassium 4.2 Chloride 104 Carbon Dioxide 25 Anion Gap 12 BUN 11 Creatinine 1.05 Estim Creat Clear Calc 63.7 Estimated GFR > 60 Random Glucose 179 H Estimat Average Glucose Hemoglobin A1c % Calcium 9.3 D Total Bilirubin Direct Bilirubin AST ALT Alkaline Phosphatase Total Protein Albumin Triglycerides 122 Cholesterol 105 D LDL Cholesterol, Calc 52 HDL Cholesterol 29 Lipase COVID-19 ([facility]ANNE) COVID-19 Clin Com <Giuliano Gipson MD - Last Filed: 11/26/21 10:47> Discharge Plan Discharge Anticipated Discharge Date/Time: 11/26/21 10:47 <Giuliano Gipson MD - Last Filed: 11/26/21 10:47> Patient Disposition: Home Health Service <Giuliano Gispon MD - Last Filed: 11/26/21 10:47> Discharge Diagnosis: TIA <Giuliano Gipson MD - Last Filed: 11/26/21 10:47> TIA <DEVIN Rose - Last Filed: 11/27/21 17:09> Referrals: [facility] [Outside] - 1 Week Center,[facility] [Primary Care Provider] - 1 Week <Giuliano Gipson MD - Last Filed: 11/26/21 10:47> Discharge Medications: New atorvastatin 40 mg Tablet 40 mg PO DAILY Qty: 30 0RF Continued enalapril maleate 20 mg tablet 1 tab PO DAILY amlodipine 5 mg tablet 1 tab PO DAILY aspirin 81 mg tablet,delayed release (DR/EC) 1 tab PO DAILY docusate sodium 100 mg capsule 1 cap PO BID omeprazole 20 mg capsule,delayed release(DR/EC) 1 cap PO BID@0630,1630 bisacodyl 5 mg tablet,delayed release (DR/EC) 1 tab PO BEDTIME PRN (Reason: Constipation) gabapentin 100 mg capsule 1 cap PO TID metformin 500 mg tablet extended release 24 hr 2 tab PO QAM fluticasone propionate 50 mcg/actuation spray,suspension 1 spray intranasal DAILY tramadol 50 mg tablet 50 mg PO BID PRN (Reason: pain) 21 Days Qty: 42 0RF Discontinued simvastatin 20 mg tablet 1 tab PO BEDTIME <Giuliano Gipson MD - Last Filed: 11/26/21 10:47> Discharge Orders: Discharge Order (Routine); Ordered 11/27/21 Ordered By: Perla Whiteside <Giuliano Gipson MD - Last Filed: 11/26/21 10:47> Diet: Advance to usual diet <Giuliano Gipson MD - Last Filed: 11/26/21 10:47> Advance to usual diet <DEVIN Rose - Last Filed: 11/27/21 17:09> Activity on Discharge: As tolerated <Giulaino Gipson MD - Last Filed: 11/26/21 10:47> As tolerated <DEVIN Rose - Last Filed: 11/27/21 17:09> Stand Alone Forms: Patient Portal Discharge page <Giuliano Gipson MD - Last Filed: 11/26/21 10:47> Care Plan Goals: Stroke prevention- You need to work with your pcp to control your blood glucose levels, follow a strict diabetic diet. Take you medications to manage your blood pressure. Take the baby aspirin and atorvastatin (instead of simvastatin) every day to reduce the risk of stroke. <Giuliano Gipson MD - Last Filed: 11/26/21 10:47> Health Concerns: TIA, type 2 diabetes, hypertension <Giuliano Gipson MD - Last Filed: 11/26/21 10:47> Plan of Treatment: Take all your medications as recommended and follow up with your Doctor in a week Physical therapy in the home for further strengthening. <Giuliano Gipson MD - Last Filed: 11/26/21 10:47> Assessment: You had a TIA (transient ischemic attack), commonly referred to as a mini stroke . You need to make efforts as listed above to reduce your risk of experiencing a stroke which can leave you with permanent deficits or even cause . <Giuliano Gipson MD - Last Filed: 11/26/21 10:47> Patient Instructions: Transient Ischemic Attack (DC) <Giuliano Gipson MD - Last Filed: 11/26/21 10:47>
[2021-11-26 11:07] VITALS: BP 124/76; PULSE 67; RESP 14; TEMP 36.6; O2SAT 95
--- NOTE | 2021-11-26 11:40 | PC.NURSE ---
pt to mri via stretcher.
[2021-11-26 12:16] LABS: Glucose, Whole Blood 171 mg/dL (60-115)
--- NOTE | 2021-11-26 12:17 | MHC.SLORD ---
Speech Language Pathology Order Status: MOLDING MANAGER attempted to see pt for bedside swallow and cog/language evaluation ordered by MD. MOLDING MANAGER attempted to visit 2X in late morning/early afternoon. Pt was leaving for MRI upon second attempt. MOLDING MANAGER will continue to follow to attempt evaluation.
--- NOTE | 2021-11-26 13:00 | PC.NURSE ---
pt returned from mri via stretcher.
--- NOTE | 2021-11-26 13:31 | PC.NURSE ---
portable echocardiogram at bedside.
[2021-11-26 14:16] VITALS: BP 132/87; PULSE 78; RESP 18; TEMP 37.2; O2SAT 95
--- NOTE | 2021-11-26 14:30 | PC.NURSE ---
pt ate half of sandwich for lunch, states he does not want anymore to eat.
--- NOTE | 2021-11-26 14:59 | PC.NURSE ---
pt repositioned in bed, resting comfortably. pt urinal emptied and linens are dry. pt in good mood.
--- NOTE | 2021-11-26 16:39 | MHC.SL.SWA ---
Addendum entered and electronically signed by Marita Nieves MA, CCC-[employer]TON[employer] MEAT PRESSER 11/26/21 16:50: D.S. Original Note: Speech Pathologist Impression: Oropharyngeal Dysphagia Risk of Aspiration Due to: History of Pneumonia Poor PO Intake Dysphasia Diet Status: Downgrade solids Liquid Consistency and Strategies for Safe Swallow: Liquid Intake Recommendation: Thin Liquid Intake Strategies: Small Sips No Straws Solid Food Consistency: Dietary Recommendations: Grnd/Mech Altered (NDD2) Additional Modifications to Solid Foods: Moisten foods with sauces and gravy. Oral Medication Intake: Whole with Liquid or Puree Please contact the pharmacy regarding appropriate crushable or liquid drug formulations that are available whenever modified delivery is recommended. Compensatory Strategies and Precautions to be Taken for Safe Swallow: Sitting Upright (90 deg) Liquids from Cup Small Bites and Sips Alternate Liquids/Solids Rate of Ingestion Change Oral Check Avoid Specific Foods Supervision While Eating and Drinking for Safe Swallow: Intermittent supervision Foods to Avoid: Avoid dry food, avoid sticky and tough to chew food Swallowing Recommended Treatments: Compens. Strategy Educat. Recommendation for Speech: Outpatient Speech Therapy Inpatient Speech Therapy Recommend pt DOWNGRADE to GROUND/MECH ALTERED (NDD2), THIN liquids, pills WHOLE with liquid or puree. Recommend intermittent supervision to ensure toleration of diet and monitor for s/s of aspiration. Recommend alternating liquids and solids. Recommend pt remain as upright as possible after eating d/t GERD and risk of aspiration. Aspiration precautions apply. Financial Investment Manager Clinican/Clinical Fellow: Yes: Elisa Gaming M.A., CF-[employer] PRESSER Supervisory Statement: I have reviewed and agree with the student/clinical fellow's documentation: Speech Language Pathologist:
[2021-11-26 16:53] VITALS: BP 132/87; PULSE 74; RESP 20; TEMP 36.6; O2SAT 96
[2021-11-26 17:08] LABS: Glucose, Whole Blood 217 mg/dL (60-115)
--- NOTE | 2021-11-26 19:07 | MHC.CM.PN ---
IMM 11/26. CM met with admitted patient with bed assignment pending. A&Ox3. Daughter with patient. PCP at [facility] Pt cannot remember the name, says it's a new doctor. Vax/boosted x1. HCP on file. HCP/daughter Susy Floyd. Pt lives with son. Family helps. 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 Has [facility]. Cane/walker/DM equipment. D/C plan: Home with continued services. Family will transport. CM to follow for d/c needs.
--- NOTE | 2021-11-26 19:33 | PC.NURSE ---
Assumed care of pt. at 1900. Pt. resting quietly in bed, denies pain. Pt. asked for the lights to be dimmed. Pt. in no apparent distress. Will continue to monitor.
[2021-11-27 00:38] VITALS: BP 158/75; PULSE 65; RESP 17; TEMP 36.6; O2SAT 96
--- NOTE | 2021-11-27 03:42 | PC.NURSE ---
Pt. was sleeping when 1am lovenox was due. Called pharmacy and changed schedule to morning when other am meds are due.
[2021-11-27] MEDS: Omeprazole 20 MG CAPSULE.DR PO ×2 (06:59→16:34)
[2021-11-27] MEDS: Enoxaparin Sodium 40 MG/0.4 ML SYRINGE SUBCUT (06:59)
[2021-11-27 07:12] VITALS: BP 149/77; PULSE 69; RESP 20; TEMP 36.6; O2SAT 95
[2021-11-27 07:17] LABS: Glucose, Whole Blood 163 mg/dL (60-115)
[2021-11-27 08:49] LABS: Glucose, Whole Blood 171 mg/dL (60-115)
[2021-11-27] MEDS: Gabapentin 100 MG CAPSULE PO ×2 (09:22→15:53)
[2021-11-27] MEDS: Aspirin Enteric Coated 81 MG TABLET.DR PO (09:22)
[2021-11-27] MEDS: Atorvastatin Calcium 40 MG TABLET PO (09:22)
[2021-11-27] MEDS: amLODIPine Besylate 5 MG TABLET PO (09:22)
[2021-11-27] MEDS: Docusate Sodium 100 MG CAPSULE PO (09:22)
[2021-11-27] MEDS: Enalapril Maleate 10 MG TABLET 20 MG PO (09:22)
[2021-11-27] MEDS: Fluticasone Propionate Nasal 16 GM SPRAY 1 SPRAY NOSTRIL-B (10:52)
[2021-11-27 11:09] VITALS: BP 128/78; PULSE 83; RESP 16; TEMP 36.6; O2SAT 96
[2021-11-27 11:16] LABS: Glucose, Whole Blood 221 mg/dL (60-115)
[2021-11-27] MEDS: Insulin Lispro 100 UNIT/ML 3 ML VIAL SUBCUT ×2 (11:57→16:33)
[2021-11-27 12:06] VITALS: BP 128/78; PULSE 83; O2SAT 96
[2021-11-27 15:19] VITALS: BP 118/65; PULSE 79; RESP 17; TEMP 36.8; O2SAT 96
[2021-11-27 15:54] LABS: Glucose, Whole Blood 176 mg/dL (60-115)
--- NOTE | 2021-11-27 16:55 | W.MHC.F2F ---
Service Date Service Date: 11/27/21 Encounter Date of encounter: 11/27/21 Reasons for Services Signs and symptoms assessed: Pt noted to have gross deconditioning with impaired bed mobility, gait pattern, joint ROM, safety awareness, standing/balance/transfer ability, and muscle imbalance/weakness Reason for physical therapy: home safety and mobility, therapeutic exercises and gait/transfer training Reason for occupational therapy: home safety and mobility and gait/transfer training Homebound: Leaving the home is medically contraindicated at this time without the asist of a device and/or another person due th the listed conditions above and below. Reason homebound: unsteady gait / fall risk and poor balance / fall risk Certification: Based on the above findings, I certify that this patient is confined to the home and needs intermittent snf care, physical therapy and/or speech therapy, or continues to need occupational therapy. The patient is under my care, and I have initiated the establishment of the plan of care. The patient will be followed by a physician who will periodically review the plan of care.
== END 2021-11-27 18:39 | disposition home health service (06) | DRG 69 ==
LOC: HO.ED 22:18 → HO.EDOVER 23:48 → HO.S3 11-27 07:20
PROVIDERS: Internal Medicine; Admitting Provider Student in an Organized Health Care Education/Training Program; Emergency Provider Student in an Organized Health Care Education/Training Program; PCP Internal Medicine; Visit Provider Physician Assistant
DX: G45.9 Transient cerebral ischemic attack, unspecified (principal); G89.4 Chronic pain syndrome; F03.90 Unspecified dementia, unspecified severity, without behavioral disturbance, psychotic disturbance, mood disturbance, and anxiety; E11.65 Type 2 diabetes mellitus with hyperglycemia; E11.40 Type 2 diabetes mellitus with diabetic neuropathy, unspecified; I10 Essential (primary) hypertension; M51.36 Other intervertebral disc degeneration, lumbar region; K21.9 Gastro-esophageal reflux disease without esophagitis; R47.81 Slurred speech; Z20.822 Contact with and (suspected) exposure to COVID-19; Z79.51 Long term (current) use of inhaled steroids; Z79.82 Long term (current) use of aspirin; Z79.84 Long term (current) use of oral hypoglycemic drugs; Z79.899 Other long term (current) drug therapy
CPT/HCPCS: 36415; 70496; 70498; 70551; 71046; 80048; 80061; 80076; 82947; 83036; 83690; 85025; 85610; 85730; 87635; 92610; 93005; 93306; 96360; 97116; 97162; 97166; 99218; 99285; J1650; Q9957; Q9967

== ENCOUNTER 2021-12-11 14:45 | Observation (INO) | payer OTHER, MEDICAID, SELFPAY ==
--- NOTE | ~2021-12-11 | CT_ITS ---
EXAMINATION: CT HEAD WITHOUT CONTRAST (STROKE PROTOCOL) CLINICAL INFORMATION: Stroke protocol. Right-sided facial droop. Slurred speech. COMPARISON: CT scan of the head dated 08/22/2021 and MRI scan of the head dated 11/26/2021. TECHNIQUE: Contiguous axial imaging was performed from the skull base to vertex without intravenous administration of contrast. This CT examination was performed using dose optimization techniques as appropriate, variously including the following: *Automated exposure control *Adjustment of mA and/or kV according to patient size (this includes techniques or standardized protocols for targeted exams where dose is matched to indication/reason for exam; i.e. extremities or head) *Use of iterative reconstruction technique DLP: 659.09 mGy-cm FINDINGS: There is no evidence of acute intracranial hemorrhage or territorial infarction. No abnormal mass-effect or midline shift is seen. Grier to white matter differentiation is well preserved except in the right frontoparietal region where chronic small focal area of encephalomalacia is seen. No extra-axial fluid collections are identified. The ventricles and sulci are enlarged. There is prominent periventricular and deep white matter low-attenuation seen, consistent with ischemic small vessel disease. Calcification of the vertebrobasilar arteries and the carotid siphons is noted.. The osseous structures and soft tissues are normal. The mastoid air cells and visualized portions of the paranasal sinuses are well-aerated.
--- NOTE | ~2021-12-11 | CT_ITS ---
EXAMINATION: CT ANGIOGRAM HEAD CT ANGIOGRAM NECK CLINICAL INFORMATION: Aphasia. COMPARISON: CT head from 12/11/2021. Brain MRI from 11/26/2021. CTA head and neck from 11/25/2021. TECHNIQUE: Initial noncontrast office machines sales representative imaging of the head and neck was performed. Comparison is made with noncontrast head CT from earlier today. Test bolus sequences followed by intravenous administration 70 mL of Omnipaque 350. Helical imaging was performed in the axial plane from the aortic arch to the skull vertex. Delayed postcontrast imaging of the head was also performed. The data was processed at the cytology technologist's workstation for generation of MIP sequences. Angled MIPs and volume rendered reformatted images were also generated at an offline 3D workstation. Stenoses are assessed in accordance with NASCET criteria unless otherwise indicated. This CT examination was performed using dose optimization techniques as appropriate, variously including the following: *Automated exposure control. *Adjustment of mA and/or kV according to patient size (this includes techniques or standardized protocols for targeted exams where dose is matched to indication/reason for exam; i.e. extremities or head). *Use of iterative reconstruction technique. DLP: 1519 mGy-cm FINDINGS: CT Head: There is no evidence of acute intracranial hemorrhage or edematous territorial infarction. Scattered hypoattenuation in the periventricular and deep white matter are consistent with moderate microangiopathy. Grier-white matter differentiation is preserved. Proportional prominence of the ventricles and sulcal spaces. No evidence for obstructive hydrocephalus. No abnormal mass effect or midline shift. No extra-axial fluid collections. No pathologic intra-axial enhancement or regional oligemia. No acute soft tissue or osseous abnormalities. Mild mucosal thickening of the paranasal sinuses. The mastoid air cells and middle ear cavities are clear. The patient is edentulous. CT Neck: The thyroid gland and remaining cervical soft tissues are within normal limits. Straightening of the normal cervical lordosis. Advanced degenerative disc disease at C6-C7. Moderate degenerative disc disease at C4-C5, C5-C6, and C7-T1. Facet and uncovertebral joint arthropathy leads to osseous encroachment on the neural foramina at C3-C4 and C6-C7. CT Upper Chest: The visualized lung apices and upper mediastinum are within normal limits. Neck CTA: Aortic Arch: Normal contour and caliber with moderate calcific atherosclerotic disease. Two vessel branching pattern of the arch with left common carotid artery arising from the brachiocephalic trunk. Great Vessel Origins: No significant stenosis of the branch origins. Right Common Carotid Artery: No focal stenosis or occlusion. Cervical Right Internal Carotid Artery: Calcific atherosclerotic disease of the carotid bulb and proximal internal carotid artery causing less than 50% stenosis. Left Common Carotid Artery: No focal stenosis or occlusion. Cervical Left Internal Carotid Artery: Calcific atherosclerotic disease of the carotid bulb and proximal internal carotid artery causing less than 50% stenosis. Cervical Right Vertebral Artery: Co-dominant. No focal stenosis or occlusion. Cervical Left Vertebral Artery: Co-dominant. Calcific atherosclerotic disease causes high-grade stenosis of the origin. No additional focal stenosis or occlusion. Brain CTA: Intracranial Internal Carotid Arteries: Calcific atherosclerotic disease of the intracranial internal carotid arteries without occlusion or flow-limiting stenosis. Right Anterior Cerebral Artery: Normal A1 segment. Normal opacification of the distal DINORA segments. Left Anterior Cerebral Artery: Normal A1 segment. Normal opacification of the distal DINORA segments. Anterior Communicating Artery: Normal. Right Middle Cerebral Artery: Normal M1 segment of the MCA without focal stenosis or occlusion. Normal arborization of the distal segments. Left Middle Cerebral Artery: Normal M1 segment of the MCA without focal stenosis or occlusion. Normal arborization of the distal segments. Right Vertebral Artery: Normal V4 segment. The posterior inferior cerebellar artery is not well opacified; however, there is no CT evidence of acute occlusion. Left Vertebral Artery: Normal V4 segment. Normal opacification of the proximal segments of the posterior inferior cerebellar artery. Basilar Artery: Normal without focal stenosis or occlusion. Normal appearance of the proximal superior cerebellar arteries. Right Posterior Cerebral Artery: Normal P1 segment. Normal opacification of the distal SENIOR NET APPLICATION DEVELOPER segments. Left Posterior Cerebral Artery: Normal P1 segment. Normal opacification of the distal SENIOR NET APPLICATION DEVELOPER segments. Normal opacification of the superior sagittal, straight, transverse, and sigmoid sinuses. CT/CT angio head neck stroke IMPRESSION: 1. No evidence of acute intracranial hemorrhage or edematous territorial infarction. 2. Moderate underlying microangiopathy and generalized cerebral volume loss. 3. CTA of the head and neck without proximal occlusion or flow-limiting stenosis.
[2021-12-11 14:49] VITALS: BP 129/70; PULSE 89; RESP 20; TEMP 36.6; O2SAT 96
[2021-12-11 15:04] VITALS: BP 144/87; PULSE 89; RESP 22; O2SAT 96
--- NOTE | 2021-12-11 15:15 | ED.NEUROSD ---
HPI - Neuro Symptoms/Deficit General Chief Complaint: Stroke Stated Complaint: dizzy, mouth feels twisted, history of stroke Time Seen by Provider: 12/11/21 15:07 Source: patient, family (Daughter) and historical interpreter Mode of arrival: ambulatory Limitations: no limitations History of Present Illness HPI Narrative: 76-year-old male came in with his daughter for evaluation of right facial droop and slurred speech. Symptoms started at 13:30 daughter noticed that patient has right facial droop and slurred speech, patient with a history of stroke in [place] a few years ago patient in the emergency department is improving, family confirmed that the patient has slight right facial droop which is difficult to appreciate because patient is not wearing his denture. Patient normally walking with a limp due to old surgery in the right knee. Related Data Home Medications Medication Instructions Recorded Confirmed amlodipine 5 mg tablet 1 tab PO DAILY 09/23/20 11/25/21 aspirin 81 mg tablet,delayed 1 tab PO DAILY 09/23/20 11/25/21 release bisacodyl 5 mg tablet,delayed 1 tab PO BEDTIME PRN Constipation 09/23/20 11/25/21 release docusate sodium 100 mg capsule 1 cap PO BID 09/23/20 11/25/21 enalapril maleate 20 mg tablet 1 tab PO DAILY 09/23/20 11/25/21 gabapentin 100 mg capsule 1 cap PO TID 09/23/20 11/25/21 metformin 500 mg tablet,extended 2 tab PO QAM 09/23/20 11/25/21 release 24 hr omeprazole 20 mg capsule,delayed 1 cap PO BID@0630,1630 09/23/20 11/25/21 release fluticasone propionate 50 1 spray intranasal DAILY 11/25/21 11/25/21 mcg/actuation nasal spray,suspension Previous Rx's Medication Instructions Recorded atorvastatin 40 mg tablet 40 mg PO DAILY #30 tabs 11/27/21 tramadol 50 mg tablet 50 mg PO BID PRN pain 30 days #60 12/06/21 tabs Allergies Allergy/AdvReac Type Severity Reaction Status Date / Time No Known Allergies Allergy Verified 11/15/21 11:05 [No Known Allergies*] Review of Systems Review of Systems: All other systems are reviewed and are negative Constitutional: Reports as per HPI and Reports no additional constitutional complaints Eyes: Reports as per HPI and Reports no additional eye complaints Reports system reviewed and no additional complaints, except as documented Cardiovascular: Reports as per HPI and Reports no additional cardiovascular complaints Respiratory: Reports as per HPI and Reports no additional respiratory complaints Gastrointestinal: Reports as per HPI and Reports no additional gastrointestinal complaints Genitourinary: Reports no additional female genitourinary complaints Musculoskeletal: Reports no additional musculoskeletal complaints Skin/Breast: Reports system reviewed and no additional complaints, except as docu Psychiatric: Reports no additional psychiatric complaints Endocrine: Reports no additional endocrine complaints Hematologic/Lymphatic: Reports no additional hematologic/lymphatic complaints Allergic/Immunologic: Reports no additional allergic/immunologic complaints Reports system reviewed and no additional complaints, except as documented and Reports Abnormal speech present [facility] Past Medical History Medical History (Updated 12/11/21 @ 16:59 by Laura Beckham MD) Chronic pain syndrome Degenerative disc disease, lumbar Dementia Diabetic neuropathy GERD (gastroesophageal reflux disease) High cholesterol Hypertension Speech abnormality Type 2 diabetes mellitus Surgical History Status post right knee replacement Social History Social History Household Members: Children Housing: Apartment Do you presently have visiting nurse or other home services: Yes Alcohol intake: never Patient Tobacco Use Status: Never used Tobacco Tobacco use type: Cigarette Smoked in Last 30 Days: No Use of substances other than those prescribed or required for medical reasons: No Advance Directives: Yes Advance Directives on File: Yes Advance Directives Date on File: 09/28/20 service: No Current occupational status: retired Physical Exam Vital Signs: Vital Signs: Last Vital Signs Temp 97.8 F 12/11/21 14:49 Pulse 89 12/11/21 15:04 Resp 22 H 12/11/21 15:04 BP 144/87 H 12/11/21 15:04 Pulse Ox 96 12/11/21 15:04 O2 Del Method 12/11/21 15:04 BMI result Body Mass Index 0.0 Vital signs have been reviewed as appeared to be correct. Blood pressure normal. Heart rate normal. Respiration rate normal. Temperature normal. Oxygen saturation normal. Appearance: Alert. Oriented X3. No acute distress. Head: Normal external exam. Normocephalic. Atraumatic. No Storey signs noted. No raccoon eyes noted Eyes: PERRLA. EOMI. Conjunctiva and sclera normal. Eyelids normal. ENT: TM's Normal. Pharynx normal. Uvula midline. Moist mucous membranes. No trismus noted. No drooling noted. No muffled voice noted. Neck: Normal inspection. Neck supple. FROM. No adenopathy. Thyroid Normal. No meningeal signs. No neck mass noted. CVS: Normal heart rate and rhythm. Heart sound normal. No murmurs noted. Pulses normal throughout. Respiratory: No respiratory distress. Painless inspiration. Breath sounds normal. No wheezes/rales/rhonchi noted. Chest nontender. No accessory muscle usage noted or decreased air movement noted. Abdomen: Soft and nontender. Bowel sounds normal in all 4 quadrants. No distention noted. No organomegaly noted. No visible injury noted. Back: No CVA tenderness. Full range of motion noted. Skin: Skin warm and dry. Normal skin color. Normal skin turgor. No rashes/lesions/lacerations noted. Extremities: No lower extremity edema. Extremities exhibit normal range of motion. Extremities nontender. Neuro: Oriented X 3. Cranial nerve exam: II-XII are grossly intact No motor deficit. No sensory deficit. Reflexes normal. Course Course Course Narrative: 76-year-old male with history of CVA in [place] many years ago, patient present with TIA symptoms of aphasia and facial droop about 1 hour and half before presentation to the ED, complete resolution of the symptoms except right facial droop as per family which is difficult to assess because patient is not wearing denture. Patient had similar presentation in the past with negative neurological workup including MRI of the brain. Unremarkable workup for stroke in the emergency department will start the patient on aspirin and admitted for further neurological evaluation. Patient is not a candidate for tPA because of almost complete resolution of patient's symptoms and low NIH score. MDM - Neuro Symptoms/Deficit Medical Records Attestation: I reviewed the patient's medical records. Lab Data Attestation: I reviewed the patient's lab results. Result diagrams: 12/11/21 15:17 12/11/21 15:17 Labs: Lab Results 12/11/21 12/11/21 12/11/21 Range/Units 15:05 15:09 15:17 WBC 9.5 (4.8-10.8) X10*3/uL RBC 5.31 (4.60-5.80) X10*6/uL Hgb 15.3 (14.0-18.0) g/dl Hct 46.4 (42.0-52.0) % MCV 87.4 (80.0-98.0) fL MCH 28.8 (27.0-33.0) pg MCHC 33.0 (31.0-36.0) g/dl RDW 11.6 (11.0-16.0) % Plt Count 179 (160-400) X10*3/uL MPV 10.4 (9.4-12.4) fL Immature Gran % (Auto) 0.3 (0.0-0.4) % Neut % (Auto) 62.8 (45-73) % Lymph % (Auto) 26.3 (20-40) % [place] % (Auto) 8.5 (2-11) % Eos % (Auto) 1.4 (0-4) % Baso % (Auto) 0.7 (0-2) % Lymph # (Auto) 2.5 (1.2-4.9) X10*3/uL [place] # (Auto) 0.8 (0.1-1.2) X10*3/uL Eos # (Auto) 0.1 (0.0-0.4) X10*3/uL Baso # (Auto) 0.1 (0.0-0.2) X10*3/uL Abs Immat Gran (auto) 0.03 (0.00-0.03) X10*3/uL Absolute Neuts (auto) 6.0 (2.0-8.3) x10*3/uL Absolute Nucleated RBC 0.000 (0.0-0.012) X10*3/uL Nucleated RBC % (auto) 0.0 (0.0-0.2) /100WBC PT (10.0-13.1) SEC Whole Blood PT 12.6 (11.1-13.5) sec INR (0.9-1.1) Whole Blood INR 1.0 (0.9-1.1) APTT (26.0-36.4) SEC Sodium (135-145) mmol/L Potassium (3.3-5.1) mmol/L Chloride (96-108) mmol/L Carbon Dioxide (22-29) mmol/L Anion Gap (12-20) BUN (9-16) mg/dL Creatinine (0.5-1.4) mg/dL Estim Creat Clear Calc Estimated GFR POC Glucose 143 H (60-115) mg/dL Random Glucose (60-115) mg/dL Calcium (8.4-10.2) mg/dL Total Creatine Kinase (38-174) U/L Troponin I High Sens (<3.5-35.0) ng/L 12/11/21 12/11/21 12/11/21 Range/Units 15:17 15:17 15:17 WBC (4.8-10.8) X10*3/uL RBC (4.60-5.80) X10*6/uL Hgb (14.0-18.0) g/dl Hct (42.0-52.0) % MCV (80.0-98.0) fL MCH (27.0-33.0) pg MCHC (31.0-36.0) g/dl RDW (11.0-16.0) % Plt Count (160-400) X10*3/uL MPV (9.4-12.4) fL Immature Gran % (Auto) (0.0-0.4) % Neut % (Auto) (45-73) % Lymph % (Auto) (20-40) % [place] % (Auto) (2-11) % Eos % (Auto) (0-4) % Baso % (Auto) (0-2) % Lymph # (Auto) (1.2-4.9) X10*3/uL [place] # (Auto) (0.1-1.2) X10*3/uL Eos # (Auto) (0.0-0.4) X10*3/uL Baso # (Auto) (0.0-0.2) X10*3/uL Abs Immat Gran (auto) (0.00-0.03) X10*3/uL Absolute Neuts (auto) (2.0-8.3) x10*3/uL Absolute Nucleated RBC (0.0-0.012) X10*3/uL Nucleated RBC % (auto) (0.0-0.2) /100WBC PT 12.5 (10.0-13.1) SEC Whole Blood PT (11.1-13.5) sec INR 1.1 (0.9-1.1) Whole Blood INR (0.9-1.1) APTT 32.5 (26.0-36.4) SEC Sodium 142 (135-145) mmol/L Potassium 4.1 (3.3-5.1) mmol/L Chloride 104 (96-108) mmol/L Carbon Dioxide 25 (22-29) mmol/L Anion Gap 17 (12-20) BUN 13 (9-16) mg/dL Creatinine 1.09 (0.5-1.4) mg/dL Estim Creat Clear Calc TNP Estimated GFR > 60 POC Glucose (60-115) mg/dL Random Glucose 147 H (60-115) mg/dL Calcium 10.2 D (8.4-10.2) mg/dL Total Creatine Kinase 115 D (38-174) U/L Troponin I High Sens 23.8 (<3.5-35.0) ng/L Imaging Data CT scan - head: Attestation: I personally reviewed and interpreted this imaging study as follows: Radiologist's impression: -No acute intracranial pathology. -Prominent changes of ischemic microangiopathy and chronic focal encephalomalacia in the right frontoparietal region. ? CT angiogram of head and neck: Attestation: I personally reviewed and interpreted this imaging study as follows: Radiologist's impression: 1. No evidence of acute intracranial hemorrhage or edematous territorial infarction. 2. Moderate underlying microangiopathy and generalized cerebral volume loss. 3. CTA of the head and neck without proximal occlusion or flow-limiting stenosis. Chest x-ray: Attestation: I personally reviewed and interpreted this imaging study as follows: Radiologist's impression: No acute pathology. ECG Data Attestation: I personally reviewed and interpreted this ECG as follows: Interpretation: Normal sinus rhythm at 73 beats per minute, left axis deviation, nonspecific ST-T changes. NIH Stroke Scale Internal: Initial- Upon Arrival Time: 15:22 Level of Consciousness: Alert Level of Consciousness Questions: Answers both questions correctly Level of Consciousness Commands: Performs both tasks correctly Best Gaze: Normal Visual: No visual loss Facial Palsy: Minor paralyis Motor Arm (Right): No drift Motor Arm (Left): No drift Motor Leg (Right): No drift Motor Leg (Left): No drift Limb Ataxia: Absent Sensory: Normal Best Language: No aphasia Dysarthia: Normal Extinction and Inattention: No abnormality Score: 1 Discharge Plan Discharge Clinical Impression: Brain TIA Patient Disposition: Admitted As Inpatient Prescriptions: No Action tramadol 50 mg tablet 50 mg PO BID PRN (Reason: pain) 30 Days Qty: 60 0RF enalapril maleate 20 mg tablet 1 tab PO DAILY amlodipine 5 mg tablet 1 tab PO DAILY aspirin 81 mg tablet,delayed release (DR/EC) 1 tab PO DAILY docusate sodium 100 mg capsule 1 cap PO BID omeprazole 20 mg capsule,delayed release(DR/EC) 1 cap PO BID@0630,1630 bisacodyl 5 mg tablet,delayed release (DR/EC) 1 tab PO BEDTIME PRN (Reason: Constipation) gabapentin 100 mg capsule 1 cap PO TID metformin 500 mg tablet extended release 24 hr 2 tab PO QAM fluticasone propionate 50 mcg/actuation spray,suspension 1 spray intranasal DAILY atorvastatin 40 mg Tablet 40 mg PO DAILY Qty: 30 0RF
[2021-12-11 15:22] LABS: MANUAL DIFF FLAG NO
[2021-12-11 15:24] LABS: Basophils Absolute Auto 0.1 X10*3/uL (0.0-0.2); Basophils Percent Auto 0.7 % (0-2); Eosinophils Absolute Auto 0.1 X10*3/uL (0.0-0.4); Eosinophils Percent Auto 1.4 % (0-4); Hematocrit 46.4 % (42.0-52.0); Hemoglobin 15.3 g/dl (14.0-18.0); Imm Gran Abs Auto 0.03 X10*3/uL (0.00-0.03); Imm Gran Pct Auto 0.3 % (0.0-0.4); Lymphocytes Absolute Auto 2.5 X10*3/uL (1.2-4.9); Lymphocytes Percent Auto 26.3 % (20-40); Mean Corpuscular Hemoglobin 28.8 pg (27.0-33.0); Mean Corpuscular Volume 87.4 fL (80.0-98.0); Mean Platelet Volume 10.4 fL (9.4-12.4); Monocytes Absolute Auto 0.8 X10*3/uL (0.1-1.2); Monocytes Percent Auto 8.5 % (2-11); Neutrophils Percent Auto 62.8 % (45-73); Platelet Count 179 X10*3/uL (160-400); Red Blood Count 5.31 X10*6/uL (4.60-5.80); Red Cell Distribution Width 11.6 % (11.0-16.0); White Blood Count 9.5 X10*3/uL (4.8-10.8)
[2021-12-11 15:31] LABS: INTERNATIONAL NORM RATIO 1.1 (0.9-1.1); Prothrombin Time 12.5 SEC (10.0-13.1)
[2021-12-11 15:34] LABS: Partial Thromboplastin Time 32.5 SEC (26.0-36.4)
[2021-12-11] MEDS: iohexoL 350 MG/ML 100 ML INFUS..BTL IV (15:36)
[2021-12-11 15:37] LABS: Stroke Lab Use COMPLETE
[2021-12-11 15:43] LABS: Anion Gap 17 (12-20); Blood Urea Nitrogen 13 mg/dL (9-16); Calcium 10.2 mg/dL (8.4-10.2); Carbon Dioxide 25 mmol/L (22-29); Chloride 104 mmol/L (96-108); Estimated Glomerular Filt Rate > 60; Glucose Random 147 mg/dL (60-115); Potassium 4.1 mmol/L (3.3-5.1); Sodium 142 mmol/L (135-145)
[2021-12-11 15:49] LABS: Troponin-I High Sensitivity 23.8 ng/L (<3.5-35.0)
--- NOTE | 2021-12-11 16:26 | PM.IMHP ---
History of Present Illness Date of Service: 12/11/21 <Tila Villalpando NP - Last Filed: 12/11/21 17:06> Attending physician on admission: Jarad Hill <Tila Villalpando NP - Last Filed: 12/11/21 17:06> Chief Complaint: Slurred speech <Tila Villalpando NP - Last Filed: 12/11/21 17:06> 76 year old male presenting to the ER with right-sided facial droop and slurred speech apparently around 130 his daughter noticed the symptoms. He has a history of a stroke in [place] several years ago. He was discharged from [facility] on 11/26/2021 and at that time he was admitted initially with a question of a TIA, symptoms that were initially mentioned have resolved. He did have an MRI which was negative for any acute infarction and he completed workup at that time and was cleared for discharge with physical therapy in the home. His daughter was present during admission interview. Denies chest pain, shortness breath, nausea, vomiting, diarrhea. In the ER, All labs within acceptable limits, vital signs stable. Head CT negative for acute abnormality. He will be placed on observation for question of TIA. <Tila Villalpando NP - Last Filed: 12/11/21 17:06> Review of Systems Review of Systems: Denies any recent fever chills or decrease in appetite respiratory denies any shortness of breath coverage production cardiovascular denies chest pain gastrointestinal denies any dysphagia abdominal pain nausea vomiting or diarrhea genitourinary denies any dysuria frequency or hematuria musculoskeletal denies any joint pain or swelling neuropsych denies any weakness or seizures all other systems reviewed are negative <Tila Villalpando NP - Last Filed: 12/11/21 17:06> [facility] Medical History: Medical History Chronic pain syndrome Degenerative disc disease, lumbar Dementia Diabetic neuropathy GERD (gastroesophageal reflux disease) High cholesterol Hypertension Speech abnormality Type 2 diabetes mellitus <Tila Villalpando NP - Last Filed: 12/11/21 17:06> Surgical History: Surgical History Status post right knee replacement <Tila Villalpando NP - Last Filed: 12/11/21 17:06> Social History: Social History Household Members: Children Housing: Apartment Do you presently have visiting nurse or other home services: Yes Alcohol intake: never Patient Tobacco Use Status: Never used Tobacco Tobacco use type: Cigarette Smoked in Last 30 Days: No Use of substances other than those prescribed or required for medical reasons: No Advance Directives: Yes Advance Directives on File: Yes Advance Directives Date on File: 09/28/20 service: No Current occupational status: disabled <Tila Villalpando NP - Last Filed: 12/11/21 17:06> Meds Allergies/Adverse reactions: Allergies Allergy/AdvReac Type Severity Reaction Status Date / Time No Known Allergies Allergy Verified 11/15/21 11:05 [No Known Allergies*] <Tila Villalpando NP - Last Filed: 12/11/21 17:06> Home medications: Home Medications Medication Instructions Recorded Confirmed Last Taken Type amlodipine 5 mg tablet 5 mg PO DAILY 09/23/20 12/11/21 12/11/21 History aspirin 81 mg tablet,delayed 81 mg PO DAILY 09/23/20 12/11/21 12/11/21 History release docusate sodium 100 mg capsule 100 mg PO BID 09/23/20 12/11/21 12/11/21 History enalapril maleate 20 mg tablet 20 mg PO DAILY 09/23/20 12/11/21 12/11/21 History gabapentin 100 mg capsule 1 cap PO TID 09/23/20 12/11/21 12/11/21 History metformin 500 mg tablet,extended 1,000 tab PO DAILY 09/23/20 12/11/21 12/11/21 History release 24 hr omeprazole 20 mg capsule,delayed 20 mg PO BID@0630,1630 09/23/20 12/11/21 12/11/21 History release fluticasone propionate 50 1 spray intranasal DAILY PRN Nasal 11/25/21 12/11/21 Unknown History mcg/actuation nasal Congestion spray,suspension <Tila Villalpando NP - Last Filed: 12/11/21 17:06> Physical Exam Vital Signs and Narrative: Vital Signs: Last Vital Signs Temp 97.8 F 12/11/21 14:49 Pulse 89 12/11/21 15:04 Resp 22 H 12/11/21 15:04 BP 144/87 H 12/11/21 15:04 Pulse Ox 96 12/11/21 15:04 O2 Del Method 12/11/21 15:04 BMI result Body Mass Index 0.0 <Tila Villalpando NP - Last Filed: 12/11/21 17:06> Appearing in no acute distress head is normocephalic atraumatic eyes pupils are PERRLA sclera is anicteric mouth throat mucous membranes are intact and moist neck is supple no lymphadenopathy, no JVD noted lung sounds are clear to auscultation heart regular rate rhythm, clear S1, S2 positive bowel sounds, abdomen is soft, nontender neuro patient is alert x3, no focal deficits noted <Tila Villalpando NP - Last Filed: 12/11/21 17:06> Results Labs CBC and Chem 7: : 12/12/21 06:42 12/12/21 06:42 <Tila Villalpando NP - Last Filed: 12/11/21 17:06> Labs: Laboratory Results - last 24 hr 12/11/21 12/11/21 12/11/21 15:05 15:09 15:17 MCV 87.4 MCH 28.8 MCHC 33.0 RDW 11.6 Plt Count 179 MPV 10.4 Immature Gran % (Auto) 0.3 Neut % (Auto) 62.8 Lymph % (Auto) 26.3 [place] % (Auto) 8.5 Eos % (Auto) 1.4 Baso % (Auto) 0.7 Lymph # (Auto) 2.5 [place] # (Auto) 0.8 Eos # (Auto) 0.1 Baso # (Auto) 0.1 Abs Immat Gran (auto) 0.03 Absolute Neuts (auto) 6.0 Absolute Nucleated RBC 0.000 Nucleated RBC % (auto) 0.0 PT Whole Blood PT 12.6 INR Whole Blood INR 1.0 APTT Anion Gap Estim Creat Clear Calc Estimated GFR POC Glucose 143 H Random Glucose Calcium Total Creatine Kinase Troponin I High Sens 12/11/21 12/11/21 12/11/21 15:17 15:17 15:17 MCV MCH MCHC RDW Plt Count MPV Immature Gran % (Auto) Neut % (Auto) Lymph % (Auto) [place] % (Auto) Eos % (Auto) Baso % (Auto) Lymph # (Auto) [place] # (Auto) Eos # (Auto) Baso # (Auto) Abs Immat Gran (auto) Absolute Neuts (auto) Absolute Nucleated RBC Nucleated RBC % (auto) PT 12.5 Whole Blood PT INR 1.1 Whole Blood INR APTT 32.5 Anion Gap 17 Estim Creat Clear Calc TNP Estimated GFR > 60 POC Glucose Random Glucose 147 H Calcium 10.2 D Total Creatine Kinase 115 D Troponin I High Sens 23.8 <Tila Villalpando NP - Last Filed: 12/11/21 17:06> Imaging Radiologist's Impressions: Impressions Head CT 12/11/21 15:29 IMPRESSION: -No acute intracranial pathology. -Prominent changes of ischemic microangiopathy and chronic focal encephalomalacia in the right frontoparietal region. This critical result was discussed with Dr. Beckham at 15:34 hours on 12/11/2021. It was ascertained that the content and urgency of the report was understood at the time of direct communication. <Tila Villalpando NP - Last Filed: 12/11/21 17:06> Assessment and Plan (1) Brain TIA: Status: Acute <Tila Villalpando NP - Last Filed: 12/11/21 17:06> 76-year-old German-speaking male placed on observation for question of TIA TIA, unspecified Head CT negative , Head CTA pending Recent admission for these same symptoms and ruled out for stroke Hypertension. Stable blood pressure Continue home medications Hyperlipidemia Continue aspirin and statin Diabetes mellitus 2 Sliding scale, ADA diet Diabetic neuropathy Continue gabapentin GERD Continue PPI DVT prophylaxis with Lovenox Attending Dr. Hill Full code OBS <Tila Villalpando NP - Last Filed: 12/11/21 17:06> 76-year-old German-speaking male placed on observation for question of TIA TIA, unspecified Head CT negative , Head CTA pending Recent admission for these same symptoms and ruled out for stroke Hypertension. Stable blood pressure Continue home medications Hyperlipidemia Continue aspirin and statin Diabetes mellitus 2 Sliding scale, ADA diet Diabetic neuropathy Continue gabapentin GERD Continue PPI DVT prophylaxis with Lovenox Attending Dr. Hill Full code OBS Addendum to history and physical by mid-level provider, DOROTEO Villalpando I interviewed and examined the patient. I discussed their presentation and management with the mid-level provider. I reviewed the history and physical and agree with the documentation, with the following additions and corrections: 76yo M presenting with acute R facial droop and slurred speech that has resolved. Hx prior CVA with no residual. Recent admission 11/25-11/26 here for same symptoms; MRI then normal. Plan admit to observation, consult Neurology, secondary prevention with ASA/statin/BP control. <Jarad Hill MD - Last Filed: 12/12/21 13:44> Quality Stroke Does the patient have a stroke diagnosis?: No <Tila Villalpando NP - Last Filed: 12/11/21 17:06> VTE Prior VTE?: No <Tila Villalpando NP - Last Filed: 12/11/21 17:06> VTE Risk Level:: Medical - moderate - high <Tila Villalpando NP - Last Filed: 12/11/21 17:06> VTE Device Contraindication: Treatment Not Indicated <Tila Villalpando NP - Last Filed: 12/11/21 17:06> VTE Drug Contraindication: N/A - Med Ordered <Tila Villalpando NP - Last Filed: 12/11/21 17:06>
[2021-12-11 17:11] VITALS: BP 146/82; PULSE 80; RESP 20; O2SAT 95
[2021-12-11] MEDS: Aspirin 81 MG TAB.CHEW PO (17:15)
[2021-12-11] MEDS: Enoxaparin Sodium 40 MG/0.4 ML SYRINGE SUBCUT (17:15)
--- NOTE | 2021-12-11 18:13 | PHA.MEDREC ---
Pharmacy Consult ? Medication Reconciliation Pharmacy has completed the medication reconciliation. pt said to call his daughter Susy. Spoke with Susy and went over medications. the only change since his last admission was the tramadol that was filled 12/09/21.
[2021-12-11 18:26] LABS: COVID-19 Test Negative (Negative)
[2021-12-11 20:00] VITALS: BP 139/75; PULSE 78; RESP 16; TEMP 36.9; O2SAT 96
[2021-12-11] MEDS: Insulin Lispro 100 UNIT/ML 3 ML VIAL SUBCUT (21:44)
[2021-12-11] MEDS: 0.9 % Sodium Chloride Flush 3 ML SYRINGE IVFLUSH (21:44)
[2021-12-11 23:14] VITALS: BP 139/80; PULSE 66; RESP 18; TEMP 36.7; O2SAT 96
[2021-12-12] VITALS (7 sets, daily range): BP systolic 113–162; BP diastolic 65–82; PULSE 68–93; RESP 18–20; TEMP 36.4–36.8; O2SAT 94–99; BMI 28.5
[2021-12-12 07:08] LABS: MANUAL DIFF FLAG NO
[2021-12-12 07:14] LABS: Basophils Percent Auto 0.6 % (0-2); Eosinophils Absolute Auto 0.1 X10*3/uL (0.0-0.4); Hematocrit 45.5 % (42.0-52.0); Hemoglobin 14.8 g/dl (14.0-18.0); Imm Gran Abs Auto 0.03 X10*3/uL (0.00-0.03); Imm Gran Pct Auto 0.4 % (0.0-0.4); Lymphocytes Absolute Auto 1.9 X10*3/uL (1.2-4.9); Lymphocytes Percent Auto 26.8 % (20-40); Mean Corpuscular HGB Conc 32.5 g/dl (31.0-36.0); Mean Corpuscular Hemoglobin 27.9 pg (27.0-33.0); Mean Corpuscular Volume 85.8 fL (80.0-98.0); Mean Platelet Volume 10.9 fL (9.4-12.4); Monocytes Absolute Auto 0.6 X10*3/uL (0.1-1.2); Monocytes Percent Auto 8.7 % (2-11); Neutrophils Absolute Auto 4.4 x10*3/uL (2.0-8.3); Neutrophils Percent Auto 61.5 % (45-73); Platelet Count 156 X10*3/uL (160-400); Red Cell Distribution Width 11.6 % (11.0-16.0); White Blood Count 7.1 X10*3/uL (4.8-10.8)
[2021-12-12 07:46] LABS: Anion Gap 15 (12-20); Blood Urea Nitrogen 11 mg/dL (9-16); Calcium 9.7 mg/dL (8.4-10.2); Carbon Dioxide 25 mmol/L (22-29); Chloride 103 mmol/L (96-108); Creatinine Clr Calc Pharmacy 74.4; Estimated Glomerular Filt Rate > 60; Glucose Random 123 mg/dL (60-115); Sodium 139 mmol/L (135-145)
[2021-12-12] MEDS: 0.9 % Sodium Chloride Flush 3 ML SYRINGE IVFLUSH ×3 (08:32→21:41)
--- NOTE | 2021-12-12 08:44 | MHC.CM.PN ---
Patient has a diagnosis of Dementia; CM spoke with Daughter/HCP/Susy @ [phone] and addressed YI with her (original to be mailed to Susy and a copy was placed on the chart). Patient lives in an apartment with his Son, uses a walker, and receives [employer] hours/week. Home/resume said services is the goal and CM has initiated and will follow for dc planning. PCP is Dr. Douglas from [facility] and Patient has received Moderna/Covid vax x2.
--- NOTE | 2021-12-12 11:51 | HO.PM.IMPN ---
Subjective Subjective Date of Service: 12/12/21 Review of Systems Follow-up TIA symptoms No further symptoms, completely resolve Denies chest pain, shortness breath, nausea, vomiting, diarrhea, sitting up in a chair Physical Exam Vital Signs: Vital Signs: Last Vital Signs Temp 97.8 F 12/12/21 07:41 Pulse 68 12/12/21 07:41 Resp 20 12/12/21 07:41 BP 133/79 12/12/21 07:41 Pulse Ox 94 12/12/21 07:41 O2 Del Method 12/12/21 07:41 BMI result Body Mass Index 28.5 Appearing in no acute distress lung sounds are clear to auscultation heart regular rate rhythm, clear S1, S2 positive bowel sounds, abdomen is soft, nontender neuro patient is alert x3, no focal deficits Objective Data Active Medications Acetaminophen (Acetaminophen 325 Mg Tablet) 650 mg PO Q6H PRN PRN Reason: Pain, Mild (Pain Scale 1-3) Dextrose (Dextrose 50 % 25 Gm/50 Ml Syringe) 25 gm IVPUSH Q15M PRN; Protocol PRN Reason: per Hypoglycemia Standing Ord. Enoxaparin Sodium (Enoxaparin Sodium 40 Mg/0.4 Ml Syringe) 40 mg SUBCUT Q24H [facility] Last Admin: 12/11/21 17:15 Dose: 40 mg Documented By: TIM Glucose (Glucose Gel 15 Gm Gel..Gram.) 15 gm PO Q15M PRN; Protocol PRN Reason: per Hypoglycemia Standing Ord. Insulin Human Lispro (Insulin Lispro 100 Unit/Ml 3 Ml Vial) 0 unit SUBCUT QIDACHS [facility]; Protocol Last Admin: 12/12/21 07:26 Dose: Not Given Documented By: ALIA Non-Admin Reason: No Insulin Coverage Metoprolol Tartrate (Metoprolol Tartrate 12.5 Mg Halftab) 12.5 mg PO BID [facility]; Protocol Ondansetron HCl (Ondansetron Hcl 4 Mg/2 Ml Vial) 4 mg IVPUSH Q8H PRN PRN Reason: Nausea and Vomiting Pharmacy Consult (Consult Rx Perform Med Rec) 1 each MISCELLANE ONCE PRN PRN Reason: Consult order Sodium Chloride (0.9 % Sodium Chloride Flush 3 Ml Syringe) 3 ml IVFLUSH QSHIFT [facility] Last Admin: 12/12/21 08:32 Dose: 3 ml Documented By: ALIA Torsemide (Torsemide 20 Mg Tablet) 40 mg PO BID [facility]; Protocol Labs CBC & Chem 7: 12/12/21 06:42 12/12/21 06:42 Labs: Laboratory Results - last 24 hr 12/11/21 12/11/21 12/11/21 15:05 15:09 15:17 MCV 87.4 MCH 28.8 MCHC 33.0 RDW 11.6 Plt Count 179 MPV 10.4 Immature Gran % (Auto) 0.3 Neut % (Auto) 62.8 Lymph % (Auto) 26.3 Otero % (Auto) 8.5 Eos % (Auto) 1.4 Baso % (Auto) 0.7 Lymph # (Auto) 2.5 Otero # (Auto) 0.8 Eos # (Auto) 0.1 Baso # (Auto) 0.1 Abs Immat Gran (auto) 0.03 Absolute Neuts (auto) 6.0 Absolute Nucleated RBC 0.000 Nucleated RBC % (auto) 0.0 PT Whole Blood PT 12.6 INR Whole Blood INR 1.0 APTT Anion Gap Estim Creat Clear Calc Estimated GFR POC Glucose 143 H Random Glucose Calcium Total Creatine Kinase Troponin I High Sens COVID-19 (JOANNE) COVID-19 [facility] Com 12/11/21 12/11/21 12/11/21 15:17 15:17 15:17 MCV MCH MCHC RDW Plt Count MPV Immature Gran % (Auto) Neut % (Auto) Lymph % (Auto) Otero % (Auto) Eos % (Auto) Baso % (Auto) Lymph # (Auto) Otero # (Auto) Eos # (Auto) Baso # (Auto) Abs Immat Gran (auto) Absolute Neuts (auto) Absolute Nucleated RBC Nucleated RBC % (auto) PT 12.5 Whole Blood PT INR 1.1 Whole Blood INR APTT 32.5 Anion Gap 17 Estim Creat Clear Calc TNP Estimated GFR > 60 POC Glucose Random Glucose 147 H Calcium 10.2 D Total Creatine Kinase 115 D Troponin I High Sens 23.8 COVID-19 (JOANNE) COVID-19 Zeppelin Com 12/11/21 12/11/21 12/11/21 17:41 18:05 20:40 MCV MCH MCHC RDW Plt Count MPV Immature Gran % (Auto) Neut % (Auto) Lymph % (Auto) Otero % (Auto) Eos % (Auto) Baso % (Auto) Lymph # (Auto) Otero # (Auto) Eos # (Auto) Baso # (Auto) Abs Immat Gran (auto) Absolute Neuts (auto) Absolute Nucleated RBC Nucleated RBC % (auto) PT Whole Blood PT INR Whole Blood INR APTT Anion Gap Estim Creat Clear Calc Estimated GFR POC Glucose 130 H 158 H Random Glucose Calcium Total Creatine Kinase Troponin I High Sens COVID-19 (JOANNE) Negative COVID-19 Clin Com See Note 12/12/21 12/12/21 12/12/21 06:42 06:42 07:24 MCV 85.8 MCH 27.9 MCHC 32.5 RDW 11.6 Plt Count 156 L MPV 10.9 Immature Gran % (Auto) 0.4 Neut % (Auto) 61.5 Lymph % (Auto) 26.8 Otero % (Auto) 8.7 Eos % (Auto) 2.0 Baso % (Auto) 0.6 Lymph # (Auto) 1.9 Otero # (Auto) 0.6 Eos # (Auto) 0.1 Baso # (Auto) 0.0 Abs Immat Gran (auto) 0.03 Absolute Neuts (auto) 4.4 Absolute Nucleated RBC 0.000 Nucleated RBC % (auto) 0.0 PT Whole Blood PT INR Whole Blood INR APTT Anion Gap 15 Estim Creat Clear Calc 74.4 Estimated GFR > 60 POC Glucose 136 H Random Glucose 123 H Calcium 9.7 Total Creatine Kinase Troponin I High Sens COVID-19 (JOANNE) COVID-19 Clin Com 12/12/21 11:25 MCV MCH MCHC RDW Plt Count MPV Immature Gran % (Auto) Neut % (Auto) Lymph % (Auto) Otero % (Auto) Eos % (Auto) Baso % (Auto) Lymph # (Auto) Otero # (Auto) Eos # (Auto) Baso # (Auto) Abs Immat Gran (auto) Absolute Neuts (auto) Absolute Nucleated RBC Nucleated RBC % (auto) PT Whole Blood PT INR Whole Blood INR APTT Anion Gap Estim Creat Clear Calc Estimated GFR POC Glucose 149 H Random Glucose Calcium Total Creatine Kinase Troponin I High Sens COVID-19 (JOANNE) COVID-19 Clin Com Assessment and Plan (1) Brain TIA: Status: Acute Plan 76-year-old Vietnamese-speaking male placed on observation for question of TIA TIA, unspecified Head CT negative , Head CTAnegative Recent admission for these same symptoms and ruled out for stroke Neurology consult pending Hypertension.? Stable blood pressure Continue home medications Hyperlipidemia Continue aspirin and statin Diabetes mellitus 2 Sliding scale, ADA diet Diabetic neuropathy Continue gabapentin GERD Continue PPI DVT prophylaxis with Lovenox Attending Dr. Hill Full code OBS Quality Stroke Does the patient have a stroke diagnosis?: No VTE Prior VTE?: No VTE Risk Level:: Medical - moderate - high VTE Device Contraindication: Treatment Not Indicated VTE Drug Contraindication: N/A - Med Ordered
[2021-12-12] MEDS: Enoxaparin Sodium 40 MG/0.4 ML SYRINGE SUBCUT (17:25)
[2021-12-12] MEDS: Torsemide 20 MG TABLET 40 MG PO (17:25)
--- NOTE | 2021-12-12 17:52 | PC.NURSE ---
PATIENT A&O X4, ABLE TO ANSWER ALL QUESTIONS APPROPRIATELY, FOLLOWS COMMANDS. PATIENT ABLE TO STAND AND PIVOT TO RECLINER WITH +1 MINIMAL ASSIST FROM NURSE. REPOSITIONED Q2HR, BATHED, UPDATED ON HEALTH STATUS.
[2021-12-12] MEDS: Insulin Lispro 100 UNIT/ML 3 ML VIAL SUBCUT (21:41)
[2021-12-12] MEDS: Metoprolol Tartrate 12.5 MG HALFTAB PO (21:41)
[2021-12-13] MEDS: Acetaminophen 325 MG TABLET 650 MG PO (01:08)
[2021-12-13 03:42] VITALS: BP 140/67; PULSE 80; RESP 14; TEMP 36.6; O2SAT 94
[2021-12-13 07:31] LABS: Glucose, Whole Blood 151 mg/dL (60-115)
[2021-12-13 07:51] VITALS: BP 119/80; PULSE 87; RESP 20; TEMP 36.1; O2SAT 96
[2021-12-13] MEDS: Torsemide 20 MG TABLET 40 MG PO ×2 (08:07→16:50)
[2021-12-13] MEDS: Metoprolol Tartrate 12.5 MG HALFTAB PO (08:07)
[2021-12-13] MEDS: 0.9 % Sodium Chloride Flush 3 ML SYRINGE IVFLUSH (08:08)
[2021-12-13] MEDS: Insulin Lispro 100 UNIT/ML 3 ML VIAL SUBCUT ×3 (08:08→16:50)
--- NOTE | 2021-12-13 10:46 | PM.NEUROCN ---
History of Present Illness Data of Consult Service Date: 12/13/21 Primary Care Provider: Unknown Physician HPI Reason for consult: Question TIA 76 years old man with diabetes and hypercholesterolemia was in hospital few months ago with somewhat similar episode of slurred speech, drooping of mouth and blurring of vision lasting for few minutes with negative workup for acute stroke. This time his CTA was again negative he was back to baseline. Review of Systems Review of Systems: No recent cold or flu-like illness PMFSH Past Medical History Medical History Chronic pain syndrome Degenerative disc disease, lumbar Dementia Diabetic neuropathy GERD (gastroesophageal reflux disease) High cholesterol Hypertension Speech abnormality Type 2 diabetes mellitus Surgical History Surgical History Status post right knee replacement Social History Social History Household Members: Children Housing: Apartment Do you presently have visiting nurse or other home services: Yes Alcohol intake: never Patient Tobacco Use Status: Never used Tobacco Tobacco use type: Cigarette Smoked in Last 30 Days: No Use of substances other than those prescribed or required for medical reasons: No Advance Directives: Yes Advance Directives on File: Yes Advance Directives Date on File: 09/28/20 service: No Current occupational status: disabled Meds Allergies Allergy/AdvReac Type Severity Reaction Status Date / Time No Known Allergies Allergy Verified 11/15/21 11:05 [No Known Allergies*] Active Medications: Current Medications Acetaminophen (Acetaminophen 325 Mg Tablet) 650 mg PO Q6H PRN PRN Reason: Pain, Mild (Pain Scale 1-3) Last Admin: 12/13/21 01:08 Dose: 650 mg Dextrose (Dextrose 50 % 25 Gm/50 Ml Syringe) 25 gm IVPUSH Q15M PRN; Protocol PRN Reason: per Hypoglycemia Standing Ord. Enoxaparin Sodium (Enoxaparin Sodium 40 Mg/0.4 Ml Syringe) 40 mg SUBCUT Q24H [facility] Last Admin: 12/12/21 17:25 Dose: 40 mg Glucose (Glucose Gel 15 Gm Gel..Gram.) 15 gm PO Q15M PRN; Protocol PRN Reason: per Hypoglycemia Standing Ord. Insulin Human Lispro (Insulin Lispro 100 Unit/Ml 3 Ml Vial) 0 unit SUBCUT QIDACHS [facility]; Protocol Last Admin: 12/13/21 08:08 Dose: 2 unit Metoprolol Tartrate (Metoprolol Tartrate 12.5 Mg Halftab) 12.5 mg PO BID [facility]; Protocol Last Admin: 12/13/21 08:07 Dose: 12.5 mg Ondansetron HCl (Ondansetron Hcl 4 Mg/2 Ml Vial) 4 mg IVPUSH Q8H PRN PRN Reason: Nausea and Vomiting Pharmacy Consult (Consult Rx Perform Med Rec) 1 each MISCELLANE ONCE PRN PRN Reason: Consult order Sodium Chloride (0.9 % Sodium Chloride Flush 3 Ml Syringe) 3 ml IVFLUSH QSHIFT [facility] Last Admin: 12/13/21 08:08 Dose: 3 ml Torsemide (Torsemide 20 Mg Tablet) 40 mg PO BID@0900,1700 [facility]; Protocol Last Admin: 12/13/21 08:07 Dose: 40 mg Home Medications Medication Instructions Recorded Confirmed Last Taken Type amlodipine 5 mg tablet 5 mg PO DAILY 09/23/20 12/11/21 12/11/21 History aspirin 81 mg tablet,delayed 81 mg PO DAILY 09/23/20 12/11/21 12/11/21 History release docusate sodium 100 mg capsule 100 mg PO BID 09/23/20 12/11/21 12/11/21 History enalapril maleate 20 mg tablet 20 mg PO DAILY 09/23/20 12/11/21 12/11/21 History gabapentin 100 mg capsule 1 cap PO TID 09/23/20 12/11/21 12/11/21 History metformin 500 mg tablet,extended 1,000 tab PO DAILY 09/23/20 12/11/21 12/11/21 History release 24 hr omeprazole 20 mg capsule,delayed 20 mg PO BID@0630,1630 09/23/20 12/11/21 12/11/21 History release fluticasone propionate 50 1 spray intranasal DAILY PRN Nasal 11/25/21 12/11/21 Unknown History mcg/actuation nasal Congestion spray,suspension Physical Exam Vital Signs: Vital Signs: Last Vital Signs Temp 97.0 F 12/13/21 07:51 Pulse 87 12/13/21 07:51 Resp 20 12/13/21 07:51 BP 119/80 12/13/21 07:51 Pulse Ox 96 10/10/22 07:51 O2 Del Method 12/13/21 07:51 BMI result Body Mass Index 28.5 Neuro: Other: He is alert and awake with normal spontaneity of speech fluency comprehension and affect. Face is symmetrical. Visual liz are full. There is no focal weakness. Deep tendon reflexes are trace to absent with flexor plantars Results Labs CBC & Chem 7: 12/12/21 06:42 12/12/21 06:42 Labs: Recent MRI of brain revealed moderate microvascular ischemic changes moderate atrophy but no obvious acute lesion. CT and CTA of brain and neck did not reveal any acute lesion or significant vascular stenosis. Echocardiogram was okay. EKG was okay. Assessment and Plan (1) Brain TIA: Status: Acute 76 years old man with significant cerebral atrophy and microvascular ischemic disease presented with 2nd episode of slurred speech and right facial droop that was resolved in emergency room. Recently he had similar episode of slurred speech and blurred vision lasting for few minutes with negative workup. Overall clinical picture was suggestive more of complex partial seizure disorder than vascular disease or ischemic attack though he was at risk for both. At this time my recommendation is to schedule an EEG, which can be done as an outpatient. Otherwise present line of treatment with anti-platelet agent and statin can continue. Procedures Date of Service Date of Service: 12/13/21
[2021-12-13 11:35] LABS: Glucose, Whole Blood 173 mg/dL (60-115)
[2021-12-13 12:00] VITALS: BP 132/78; PULSE 91; RESP 20; TEMP 36.1; O2SAT 97
--- NOTE | 2021-12-13 12:41 | PM.DS ---
DS: Providers Provider Date of Service: 12/13/21 Date of admission: 12/11/21 16:33 Primary care physician: Unknown Physician Consults: 12/13/21 10:28 Consult to Neurology Routine Consulting Provider: [facility] Reason for consultation: ? TIA Has provider been notified: No Attending physician on discharge: Jarad Hill Discharging clinician: Tila Villalpando DS: Diagnosis Discharge Diagnosis (1) Brain TIA: Status: Acute DS: Summary Hospital Course Hospital Course: 76 year old male presenting to the ER with right-sided facial droop and slurred speech apparently around 130 his daughter noticed the symptoms.? He has a history of a stroke in [place] several years ago.? He was discharged from [facility] on 11/26/2021 and at that time he was admitted initially with a question of a TIA, symptoms that were initially mentioned have resolved.? He did have an MRI which was negative for any acute infarction and he completed workup at that time and was cleared for discharge with physical therapy in the home.? His daughter was present during admission interview.? Denies chest pain, shortness breath, nausea, vomiting, diarrhea.? In the ER, All labs within acceptable limits, vital signs stable.? Head CT negative for acute abnormality.? He will be placed on observation for question of TIA TIA, unspecified . Complete resolution of symptoms Head CT negative , Head CTA negative Recent admission for these same symptoms and ruled out for stroke no indication that this was a stroke Seen and examined by neurology with a question of possible complex seizures, okay to schedule EEG as an outpatient and follow up in the neurologist office for further workup. Hypertension.? Stable blood pressure Continue home medications Hyperlipidemia Continue aspirin and statin Diabetes mellitus 2 continue home medications Diabetic neuropathy Continue gabapentin GERD Continue PPI Time Spent with Patient Time attestation: Total time spent providing and/or coordinating discharge services: Discharge coordination time: Greater than 30 minutes Quality: Safe Use of Opioids Does Pt have an Active Cancer Diagnosis on the Problem List?: No Quality: Stroke Does the patient have a stroke diagnosis?: No Physical Exam Vital Signs: Vital Signs: Last Vital Signs Temp 97.0 F 12/13/21 12:00 Pulse 91 12/13/21 12:00 Resp 20 12/13/21 12:00 BP 132/78 12/13/21 12:00 Pulse Ox 97 12/13/21 12:00 O2 Del Method 12/13/21 12:00 BMI result Body Mass Index 28.5 Appearing in no acute distress head is normocephalic atraumatic eyes pupils are PERRLA sclera is anicteric mouth throat mucous membranes are intact and moist neck is supple no lymphadenopathy, no JVD noted lung sounds are clear to auscultation heart regular rate rhythm, clear S1, S2 positive bowel sounds, abdomen is soft, nontender neuro patient is alert x3, no focal deficits DS: Data Data Completed and Pending Labs on day of discharge: Laboratory Results - last 24 hr 12/12/21 12/12/21 12/13/21 16:11 19:45 07:21 POC Glucose 139 H 196 H 151 H 12/13/21 11:26 POC Glucose 173 H Discharge Plan Discharge Anticipated Discharge Date/Time: 12/13/21 12:36 Patient Disposition: Home, Self-Care Discharge Diagnosis: TIA symptoms, possible complex seizures Referrals: Mindy Osuna MD [Physician] - 1 Week ( workup for possible complex seizures) Discharge Medications: Continued tramadol 50 mg tablet 50 mg PO BID PRN (Reason: pain) 30 Days Qty: 60 0RF enalapril maleate 20 mg tablet 20 mg PO DAILY amlodipine 5 mg tablet 5 mg PO DAILY aspirin 81 mg tablet,delayed release (DR/EC) 81 mg PO DAILY docusate sodium 100 mg capsule 100 mg PO BID omeprazole 20 mg capsule,delayed release(DR/EC) 20 mg PO BID@0630,1630 gabapentin 100 mg capsule 1 cap PO TID metformin 500 mg tablet extended release 24 hr 1,000 tab PO DAILY fluticasone propionate 50 mcg/actuation spray,suspension 1 spray intranasal DAILY PRN (Reason: Nasal Congestion) atorvastatin 40 mg Tablet 40 mg PO DAILY Qty: 30 0RF Discharge Orders: Discharge Order (Routine); Ordered 12/13/21 Ordered By: Tila Villalpando Diet: Advance to usual diet Activity on Discharge: As tolerated Stand Alone Forms: Patient Portal Discharge page Care Plan Goals: no further symptoms Health Concerns: TIA symptoms, possible complex seizures Plan of Treatment: Your workup was negative for a stroke Follow-up with neurologist for workup for possible complex seizures Follow-up with primary care provider as needed Take all medications as prescribed Assessment: see discharge summary
--- NOTE | 2021-12-13 14:39 | MHC.CM.PN ---
PT MEDICALLY CLEARED FOR D/C HOME W/RESUMP OF [facility] H[facility], FAMILY FOR TRANSPORT.
[2021-12-13 15:16] VITALS: BP 123/79; PULSE 104; RESP 18; TEMP 36.9; O2SAT 93
[2021-12-13 16:16] LABS: Glucose, Whole Blood 189 mg/dL (60-115)
--- NOTE | 2021-12-13 19:29 | PC.NURSE ---
Assumed care at 11:00. Patient alert and oriented, communicates best in [place], communicated well with RN in [place], interpretter used for discharge. Patient was ambulated twice with RN, and has steady gate and good falls prevention technique. Results of neuro workup were reviewed with patient and family and FAMILY THERAPIST was contacted to give greater detail. Patient to follow-up outpatient for further seizure workup. Some questioning of discharge by patient family, discussed with CM and with FAMILY THERAPIST, FAMILY THERAPIST to bedside to explain plan of care, patient and family finally in agreement with readiness for discharge.
== END 2021-12-13 17:00 | disposition home or self-care (01) ==
LOC: HO.ED 16:59 → HO.EDOVER 17:02 → HO.IMC 18:54
PROVIDERS: Admitting Provider Nurse Practitioner Acute Care; Emergency Provider Emergency Medicine; Visit Provider Nurse Practitioner Acute Care
DX: R29.810 Facial weakness (principal); K21.9 Gastro-esophageal reflux disease without esophagitis; I10 Essential (primary) hypertension; R51.9 Headache, unspecified; R47.01 Aphasia; M47.26 Other spondylosis with radiculopathy, lumbar region; R60.0 Localized edema; E78.5 Hyperlipidemia, unspecified; E11.9 Type 2 diabetes mellitus without complications; E11.40 Type 2 diabetes mellitus with diabetic neuropathy, unspecified; Z86.73 Personal history of transient ischemic attack (TIA), and cerebral infarction without residual deficits; Z20.822 Contact with and (suspected) exposure to COVID-19; Z79.899 Other long term (current) drug therapy; Z79.84 Long term (current) use of oral hypoglycemic drugs
CPT/HCPCS: 36415; 70450; 70496; 70498; 71045; 80048; 82550; 82947; 84484; 85025; 85610; 85730; 87635; 93005; 93971; 96372; 96374; 96375; 99219; 99285; J1650; Q9967

== ENCOUNTER 2022-04-25 14:23 | Emergency (ER) | payer OTHER, MEDICAID, SELFPAY ==
--- NOTE | ~2022-04-25 | CT_ITS ---
EXAMINATION: CT ABDOMEN AND PELVIS WITHOUT CONTRAST CLINICAL INFORMATION: Abdominal pain. Rule out small bowel obstruction COMPARISON: CT abdomen and pelvis 11/03/2020 TECHNIQUE: Multidetector volumetric imaging was performed from the superior aspect of the liver through the pubic symphysis. Sagittal and coronal reformatted images were obtained on the technologist's workstation. This CT examination was performed using dose optimization techniques as appropriate, variously including the following: *Automated exposure control *Adjustment of mA and/or kV according to patient size (this includes techniques or standardized protocols for targeted exams where dose is matched to indication/reason for exam; i.e. extremities or head) *Use of iterative reconstruction technique DLP: 684 mGy-cm FINDINGS: LUNG BASES: Minimal bibasilar atelectasis. Coronary artery vascular calcifications. LIVER, GALLBLADDER, AND BILIARY TREE: Somewhat nodular liver surface contour suggesting fibrosis/cirrhosis, unchanged. Normal hepatic attenuation. No liver lesion or biliary ductal dilation. Status post cholecystectomy. PANCREAS: Mildly atrophic. No pancreatic lesion or peripancreatic inflammatory change. SPLEEN: Unremarkable. ADRENAL GLANDS: Unremarkable. KIDNEYS AND URETERS: Similar appearance of benign appearing bilateral renal cysts, largest measuring approximately 7.6 cm in size exophytic from the right kidney. No imaging follow-up recommended. 4 mm nonobstructing left lower pole renal calculus redemonstrated. No hydronephrosis. BLADDER: Slightly trabeculated appearance of the bladder wall. No focal bladder wall thickening. GASTROINTESTINAL TRACT: No dilated bowel loops to suggest bowel obstruction. No bowel wall thickening. Sigmoid diverticulosis. No evidence of acute diverticulitis. Normal appendix. No free air or ascites. ABDOMINAL WALL: Probable small fat-containing left inguinal hernia. LYMPH NODES: No lymphadenopathy. VASCULAR: Mildly tortuous normal caliber abdominal aorta. Mild to moderate vascular calcifications. PELVIC VISCERA: Enlarged prostate gland that measures approximately 5.9 x 4.9 x 5.4 cm in size. OSSEOUS STRUCTURES: No acute fracture or suspicious osseous lesion. Multilevel degenerative disc disease most advanced at L2-L3. Moderate bilateral hip joint osteoarthritis. CT/CT abdomen pelvis wo IV con IMPRESSION: 1. No evidence of bowel obstruction or other acute intra-abdominal process. 2. Sigmoid diverticulosis. No evidence of acute diverticulitis. 3. Approximately 4 mm nonobstructing left lower pole renal calculus. 4. Additional chronic findings, as described.
--- NOTE | ~2022-04-25 | CT_ITS ---
EXAMINATION: CT HEAD WITHOUT CONTRAST CLINICAL INFORMATION: Headache. COMPARISON: CT head 12/11/2021 TECHNIQUE: Contiguous axial imaging was performed from the skull base to vertex without intravenous administration of contrast. Coronal and sagittal reformatted images are performed at the CT scanner. [This CT examination was performed using dose optimization techniques as appropriate, variously including the following: *Automated exposure control *Adjustment of mA and/or kV according to patient size (this includes techniques or standardized protocols for targeted exams where dose is matched to indication/reason for exam; i.e. extremities or head) *Use of iterative reconstruction technique] DLP: 5.12+700.49 mGy-cm. FINDINGS: There is no evidence of acute intracranial hemorrhage or territorial infarction. No abnormal mass-effect or midline shift is seen. Grier to white matter differentiation is well preserved. No extra-axial fluid collections are identified. There is generalized global volume loss. There is moderate prominence of the ventricles and the sulci . There is moderate hypodensity of the periventricular white matter due to chronic small vessel ischemic disease. There are vascular calcifications of the internal carotid arteries bilaterally. There is no osseous abnormality. The mastoid air cells and visualized portions of the paranasal sinuses are well-aerated. CT/CT head/brain wo IV con IMPRESSION: No acute intracranial pathology.
[2022-04-25 14:49] VITALS: BP 142/80; BP 156/98; PULSE 86; PULSE 93; RESP 18; TEMP 36.9; O2SAT 95; O2SAT 96; BMI 26.6
--- NOTE | 2022-04-25 14:55 | PC.NURSE ---
Pt reports frontal headache and pain to b/l temples since this am with blurry vision. Neuros are intact at this time with clear speech pt reports inability to lift right leg off bed d/t prior surgery. Skin pwd. Speaking full sentences. Pashto speaking
[2022-04-25 16:00] VITALS: BP 149/79; PULSE 80; RESP 16; TEMP 36.8; O2SAT 98
--- NOTE | 2022-04-25 16:17 | ECG_ITS ---
Test Reason : HEADACHE Blood Pressure : / mmHG Vent. Rate : 081 BPM Atrial Rate : 081 BPM P-R Int : 142 ms QRS Dur : 082 ms QT Int : 386 ms P-R-T Axes : 050 -46 051 degrees QTc Int : 448 ms Normal sinus rhythm Left anterior fascicular block Cannot rule out Anterior infarct , age undetermined Abnormal ECG No significant changes when compared with the previous EKG of 11 dec 2021 Referred By: Laura Beckham Electronically Signed By:ALEJANDRO SRINIVASAN
--- NOTE | 2022-04-25 16:18 | ED.GENADULT ---
HPI - General Adult General Chief complaint: Headache Stated complaint: Head ache, abd pain per EMS Time Seen by Provider: 04/25/22 16:10 Source: patient, family (Daughter) and EMS Mode of arrival: EMS Limitations: no limitations History of Present Illness HPI narrative: A 76-year-old male with type 2 diabetes controlled with metformin that patient and family confirm compliance with his medication since last night his blood sugar has been running high above 200, patient has dry mouth and feeling thirsty, he also been going to the bathroom for urination more frequent than his normal, patient also been feeling abdomen is bloated and distended with feeling of nausea but over vomiting, patient claimed that he had normal bowel movement in the morning. Also complaining of pressure headache mostly behind his eyes that has been constant since this morning. No fever, no chills. Related Data Home Medications Medication Instructions Recorded Confirmed amlodipine 5 mg tablet 5 mg PO DAILY 09/23/20 12/11/21 aspirin 81 mg tablet,delayed 81 mg PO DAILY 09/23/20 12/11/21 release docusate sodium 100 mg capsule 100 mg PO BID 09/23/20 12/11/21 enalapril maleate 20 mg tablet 20 mg PO DAILY 09/23/20 12/11/21 gabapentin 100 mg capsule 1 cap PO TID 09/23/20 12/11/21 metformin 500 mg tablet,extended 1,000 tab PO DAILY 09/23/20 12/11/21 release 24 hr omeprazole 20 mg capsule,delayed 20 mg PO BID@0630,1630 09/23/20 12/11/21 release fluticasone propionate 50 1 spray intranasal DAILY PRN Nasal 11/25/21 12/11/21 mcg/actuation nasal Congestion spray,suspension Previous Rx's Medication Instructions Recorded atorvastatin 40 mg tablet 40 mg PO DAILY #30 tabs 11/27/21 tramadol 50 mg tablet 50 mg PO BID PRN pain 23 days #46 12/17/21 tabs Allergies Allergy/AdvReac Type Severity Reaction Status Date / Time No Known Allergies Allergy Verified 11/15/21 11:05 [No Known Allergies*] Review of Systems Review of Systems: All other systems are reviewed and are negative Constitutional: Reports as per HPI and Reports no additional constitutional complaints Eyes: Reports as per HPI and Reports no additional eye complaints Reports system reviewed and no additional complaints, except as documented Cardiovascular: Reports as per HPI and Reports no additional cardiovascular complaints Respiratory: Reports as per HPI and Reports no additional respiratory complaints Gastrointestinal: Reports as per HPI and Reports no additional gastrointestinal complaints Genitourinary: Reports no additional female genitourinary complaints Musculoskeletal: Reports no additional musculoskeletal complaints Skin/Breast: Reports system reviewed and no additional complaints, except as docu Psychiatric: Reports no additional psychiatric complaints Endocrine: Reports no additional endocrine complaints Hematologic/Lymphatic: Reports no additional hematologic/lymphatic complaints Allergic/Immunologic: Reports no additional allergic/immunologic complaints Reports system reviewed and no additional complaints, except as documented and Reports Abnormal speech present [facility] Past Medical History Medical History Chronic pain syndrome Degenerative disc disease, lumbar Dementia Diabetic neuropathy GERD (gastroesophageal reflux disease) High cholesterol Hypertension Speech abnormality Type 2 diabetes mellitus Surgical History Status post right knee replacement Social History Social History Household Members: Children Housing: Apartment Do you presently have visiting nurse or other home services: Yes Alcohol intake: never Patient Tobacco Use Status: Never used Tobacco Tobacco use type: Cigarette Smoked in Last 30 Days: No Use of substances other than those prescribed or required for medical reasons: No Advance Directives: Yes Advance Directives on File: Yes Advance Directives Date on File: 09/28/20 service: No Current occupational status: disabled Physical Exam ED Vital Signs: Vital Signs - 24 hr 04/25/22 14:49 04/25/22 16:00 04/25/22 17:34 Temperature 98.4 F 98.3 F 99.5 F Pulse Rate 86 80 78 Respiratory Rate 18 16 16 Blood Pressure 142/80 H 149/79 H 154/78 H Pulse Oximetry 95 98 98 Oxygen Delivery Method Room Air Room Air Room Air BMI result Body Mass Index 26.6 Vital signs have been reviewed as appeared to be correct. Blood pressure normal. Heart rate normal. Respiration rate normal. Temperature normal. Oxygen saturation normal. Appearance: Alert. Oriented X3. No acute distress. Head: Normal external exam. Normocephalic. Atraumatic. No Storey signs noted. No raccoon eyes noted Eyes: PERRLA. EOMI. Conjunctiva and sclera normal. Eyelids normal. ENT: TM's Normal. Pharynx normal. Uvula midline. Moist mucous membranes. No trismus noted. No drooling noted. No muffled voice noted. Neck: Normal inspection. Neck supple. FROM. No adenopathy. Thyroid Normal. No meningeal signs. No neck mass noted. CVS: Normal heart rate and rhythm. Heart sound normal. No murmurs noted. Pulses normal throughout. Respiratory: No respiratory distress. Painless inspiration. Breath sounds normal. No wheezes/rales/rhonchi noted. Chest nontender. No accessory muscle usage noted or decreased air movement noted. Abdomen: Soft and nontender. Bowel sounds normal in all 4 quadrants. No distention noted. No organomegaly noted. No visible injury noted. Back: No CVA tenderness. Full range of motion noted. Skin: Skin warm and dry. Normal skin color. Normal skin turgor. No rashes/lesions/lacerations noted. Extremities: No lower extremity edema. Extremities exhibit normal range of motion. Extremities nontender. Neuro: Oriented X 3. Cranial nerve exam: II-XII are grossly intact No motor deficit. No sensory deficit. Reflexes normal. Course Course Course Narrative: Hyperglycemia with no DKA, no source of infection, abdominal pain with unremarkable CT, labs are within normal. Blood sugar is better in the ED after hydration, patient was instructed to follow-up with her PCP for further management of his diabetes. Medications Administered Discontinued Medications Generic Name Dose Route Start Last Admin Trade Name Freq PRN Reason Stop Dose Admin Sodium Chloride 1,000 mls @ 999 mls/hr 04/25/22 16:16 04/25/22 18:22 Ns IV 04/25/22 17:16 Infused .Q1H1M ONE Infusion Sodium Chloride 1,000 mls @ 999 mls/hr 04/25/22 17:40 04/25/22 18:16 Ns IV 04/25/22 18:40 999 mls/hr .Q1H1M ONE Administration Metformin HCl 1,000 mg 04/25/22 17:40 04/25/22 18:22 Metformin Hcl 1,000 Mg Tablet PO 04/25/22 17:41 Not Given ONCE ONE Medical Decision Making Differential Diagnosis Differential Diagnoses: The differential diagnosis associated with the presentation includes (Diabetic hyperglycemia, DKA, small-bowel obstruction, appendicitis, diverticulitis, UTI.) Lab Data MDM Lab Attestation statement: I reviewed the patient's lab results. 04/25/22 16:41 04/25/22 16:41 Labs: Lab Results 04/25/22 04/25/22 04/25/22 Range/Units 16:41 16:41 16:41 WBC 9.0 (4.8-10.8) X10*3/uL RBC 5.06 (4.60-5.80) X10*6/uL Hgb 14.4 (14.0-18.0) g/dl Hct 43.9 (42.0-52.0) % MCV 86.8 (80.0-98.0) fL MCH 28.5 (27.0-33.0) pg MCHC 32.8 (31.0-36.0) g/dl RDW 11.9 (11.0-16.0) % Plt Count 196 D (160-400) X10*3/uL MPV 10.6 (9.4-12.4) fL Immature Gran % (Auto) 0.2 (0.0-0.4) % Neut % (Auto) 75.1 H (45-73) % Lymph % (Auto) 14.5 L (20-40) % [place] % (Auto) 8.8 (2-11) % Eos % (Auto) 0.7 (0-4) % Baso % (Auto) 0.7 (0-2) % Lymph # (Auto) 1.3 (1.2-4.9) X10*3/uL [place] # (Auto) 0.8 (0.1-1.2) X10*3/uL Eos # (Auto) 0.1 (0.0-0.4) X10*3/uL Baso # (Auto) 0.1 (0.0-0.2) X10*3/uL Abs Immat Gran (auto) 0.02 (0.00-0.03) X10*3/uL Absolute Neuts (auto) 6.7 (2.0-8.3) x10*3/uL Absolute Nucleated RBC 0.000 (0.0-0.012) X10*3/uL Nucleated RBC % (auto) 0.0 (0.0-0.2) /100WBC Sodium 136 (135-145) mmol/L Potassium 4.4 (3.3-5.1) mmol/L Chloride 103 (96-108) mmol/L Carbon Dioxide 22 (22-29) mmol/L Anion Gap 15 (12-20) BUN 19 H (9-16) mg/dL Creatinine 1.14 (0.5-1.4) mg/dL Estim Creat Clear Calc 54.2 Estimated GFR > 60 POC Glucose (60-115) mg/dL Random Glucose 216 H (60-115) mg/dL Calcium 10.1 (8.4-10.2) mg/dL Total Bilirubin 0.9 (0.0-1.0) mg/dL Direct Bilirubin 0.2 (0.0-0.5) mg/dL AST 18 (5-37) U/L ALT 20 (0-40) U/L Alkaline Phosphatase 78 (39-117) U/L Troponin I High Sens 15.1 (<3.5-35.0) ng/L Total Protein 6.9 (6.5-8.0) g/dL Albumin 4.2 (3.5-5.0) g/dL Lipase 19 (8-78) U/L Urine Color Urine Appearance Urine pH (5.0-9.0) Ur Specific [place] (1.005-1.025) Urine Protein (Neg-Trace) mg/dL Urine Glucose (UA) (Negative) mg/dL Urine Ketones (Negative) mg/dL Urine Blood (Negative) Urine Nitrite (Negative) Ur Leukocyte Esterase (Negative) Urine RBC (0-2) /HPF Urine WBC (0-5) /HPF Ur Squamous Epith Cells (0-2) /HPF Urine Bacteria (None Seen) Hyaline Casts (0-2) /LPF COVID-19 (JOANNE) (Negative) COVID-19 Clin Com 04/25/22 04/25/22 04/25/22 Range/Units 16:41 16:41 18:19 WBC (4.8-10.8) X10*3/uL RBC (4.60-5.80) X10*6/uL Hgb (14.0-18.0) g/dl Hct (42.0-52.0) % MCV (80.0-98.0) fL MCH (27.0-33.0) pg MCHC (31.0-36.0) g/dl RDW (11.0-16.0) % Plt Count (160-400) X10*3/uL MPV (9.4-12.4) fL Immature Gran % (Auto) (0.0-0.4) % Neut % (Auto) (45-73) % Lymph % (Auto) (20-40) % [place] % (Auto) (2-11) % Eos % (Auto) (0-4) % Baso % (Auto) (0-2) % Lymph # (Auto) (1.2-4.9) X10*3/uL [place] # (Auto) (0.1-1.2) X10*3/uL Eos # (Auto) (0.0-0.4) X10*3/uL Baso # (Auto) (0.0-0.2) X10*3/uL Abs Immat Gran (auto) (0.00-0.03) X10*3/uL Absolute Neuts (auto) (2.0-8.3) x10*3/uL Absolute Nucleated RBC (0.0-0.012) X10*3/uL Nucleated RBC % (auto) (0.0-0.2) /100WBC Sodium (135-145) mmol/L Potassium (3.3-5.1) mmol/L Chloride (96-108) mmol/L Carbon Dioxide (22-29) mmol/L Anion Gap (12-20) BUN (9-16) mg/dL Creatinine (0.5-1.4) mg/dL Estim Creat Clear Calc Estimated GFR POC Glucose 134 H (60-115) mg/dL Random Glucose (60-115) mg/dL Calcium (8.4-10.2) mg/dL Total Bilirubin (0.0-1.0) mg/dL Direct Bilirubin (0.0-0.5) mg/dL AST (5-37) U/L ALT (0-40) U/L Alkaline Phosphatase (39-117) U/L Troponin I High Sens (<3.5-35.0) ng/L Total Protein (6.5-8.0) g/dL Albumin (3.5-5.0) g/dL Lipase (8-78) U/L Urine Color Yellow Urine Appearance Clear Urine pH 6.0 (5.0-9.0) Ur Specific [place] >= 1.030 H (1.005-1.025) Urine Protein Negative (Neg-Trace) mg/dL Urine Glucose (UA) >=1000 H (Negative) mg/dL Urine Ketones Trace (Negative) mg/dL Urine Blood Negative (Negative) Urine Nitrite Negative (Negative) Ur Leukocyte Esterase Negative (Negative) Urine RBC 0-2 (0-2) /HPF Urine WBC 0-5 (0-5) /HPF Ur Squamous Epith Cells 0-2 (0-2) /HPF Urine Bacteria None Seen (None Seen) Hyaline Casts 0-2 (0-2) /LPF COVID-19 (JOANNE) Negative (Negative) COVID-19 Clin Com See Note Independent Interpretation I performed an independent interpretation of an: CT Scan (Head: No acute intracranial pathology. Abdomen and pelvis:1. No evidence of bowel obstruction or other acute intra-abdominal process. 2. Sigmoid diverticulosis. No evidence of acute diverticulitis. 3. Approximately 4 mm nonobstructing left lower pole renal calculus. 4. Additional chronic findi) Radiology Impression Discussion of test interpretation with radiology: I have reviewed the radiologist's reading. Chronic Conditions Patient?s care impacted by: Diabetes Discharge Plan Discharge Clinical Impression: Hyperglycemia, Headache, Abdominal pain Patient Disposition: Home, Self-Care Instructions: Diabetic Hyperglycemia (ED) Additional Instructions: Follow-up with your PCP for further evaluation and management of your diabetes. Prescriptions: No Action tramadol 50 mg tablet 50 mg PO BID PRN (Reason: pain) 23 Days Qty: 46 0RF enalapril maleate 20 mg tablet 20 mg PO DAILY amlodipine 5 mg tablet 5 mg PO DAILY aspirin 81 mg tablet,delayed release (DR/EC) 81 mg PO DAILY docusate sodium 100 mg capsule 100 mg PO BID omeprazole 20 mg capsule,delayed release(DR/EC) 20 mg PO BID@0630,1630 gabapentin 100 mg capsule 1 cap PO TID metformin 500 mg tablet extended release 24 hr 1,000 tab PO DAILY fluticasone propionate 50 mcg/actuation spray,suspension 1 spray intranasal DAILY PRN (Reason: Nasal Congestion) atorvastatin 40 mg Tablet 40 mg PO DAILY Qty: 30 0RF
[2022-04-25 16:47] LABS: MANUAL DIFF FLAG NO
--- NOTE | 2022-04-25 16:48 | MHC.EDTECH ---
this pct assumed care of pt at 1500 ,pt 1600 rounding and vitals sign taken ,lab drawn ,urine sample and covid sample collected and sent to lab ,ekg done and read by provider .
[2022-04-25 16:49] LABS: Basophils Absolute Auto 0.1 X10*3/uL (0.0-0.2); Basophils Percent Auto 0.7 % (0-2); Eosinophils Absolute Auto 0.1 X10*3/uL (0.0-0.4); Eosinophils Percent Auto 0.7 % (0-4); Hematocrit 43.9 % (42.0-52.0); Hemoglobin 14.4 g/dl (14.0-18.0); Imm Gran Abs Auto 0.02 X10*3/uL (0.00-0.03); Imm Gran Pct Auto 0.2 % (0.0-0.4); Lymphocytes Absolute Auto 1.3 X10*3/uL (1.2-4.9); Lymphocytes Percent Auto 14.5 % (20-40); Mean Corpuscular HGB Conc 32.8 g/dl (31.0-36.0); Mean Corpuscular Hemoglobin 28.5 pg (27.0-33.0); Mean Corpuscular Volume 86.8 fL (80.0-98.0); Mean Platelet Volume 10.6 fL (9.4-12.4); Monocytes Absolute Auto 0.8 X10*3/uL (0.1-1.2); Monocytes Percent Auto 8.8 % (2-11); Neutrophils Absolute Auto 6.7 x10*3/uL (2.0-8.3); Neutrophils Percent Auto 75.1 % (45-73); Platelet Count 196 X10*3/uL (160-400); Red Blood Count 5.06 X10*6/uL (4.60-5.80); Red Cell Distribution Width 11.9 % (11.0-16.0)
[2022-04-25 16:51] LABS: Appearance Urine Clear; Color Urine Yellow; Glucose Urine UA >=1000 mg/dL (Negative); Leukocyte Esterase Urine Negative (Negative); Nitrite Urine Negative (Negative); Specific Gravity - Urine >= 1.030 (1.005-1.025); UMIC TRIGGER UACC YES; Urine Blood Negative (Negative); Urine Ketones Trace mg/dL (Negative); Urine Protein Negative (Neg-Trace)
[2022-04-25 16:56] LABS: Bacteria Urine None Seen (None Seen); Hyaline Casts Urine 0-2 /LPF (0-2); RBC Urine 0-2 /HPF (0-2); Squamous Epithelial Cell Urine 0-2 /HPF (0-2); WBC Urine 0-5 /HPF (0-5)
[2022-04-25 17:05] LABS: COVID-19 Test Negative (Negative); IDNOW Serial# BCCEAD1C
[2022-04-25] MEDS: 0.9 % Sodium Chloride 1,000 ML 999 ML IV ×2 (17:06→18:16)
[2022-04-25 17:16] LABS: Alanine Aminotransferase 20 U/L (0-40); Albumin Level 4.2 g/dL (3.5-5.0); Alkaline Phosphatase 78 U/L (39-117); Anion Gap 15 (12-20); Aspartate Amino Transferase 18 U/L (5-37); Bilirubin Direct 0.2 mg/dL (0.0-0.5); Bilirubin Total 0.9 mg/dL (0.0-1.0); Blood Urea Nitrogen 19 mg/dL (9-16); Calcium 10.1 mg/dL (8.4-10.2); Carbon Dioxide 22 mmol/L (22-29); Chloride 103 mmol/L (96-108); Creatinine Clr Calc Pharmacy 54.2; Estimated Glomerular Filt Rate > 60; Glucose Random 216 mg/dL (60-115); Lipase 19 U/L (8-78); Potassium 4.4 mmol/L (3.3-5.1); Sodium 136 mmol/L (135-145); Total Protein 6.9 g/dL (6.5-8.0)
[2022-04-25 17:25] LABS: Troponin-I High Sensitivity 15.1 ng/L (<3.5-35.0)
[2022-04-25 17:34] VITALS: BP 154/78; PULSE 78; RESP 16; TEMP 37.5; O2SAT 98
--- NOTE | 2022-04-25 18:15 | MHC.EDTECH ---
pt was incontinent of urine ,care given linen change ,warm blanket given ,pt drank an apple juice .
[2022-04-25 18:22] LABS: Glucose, Whole Blood 134 mg/dL (60-115)
--- NOTE | 2022-04-25 18:22 | PC.NURSE ---
Metoformin held, last POC 134 Headache has imporved 04/15
== END 2022-04-25 19:26 | disposition home or self-care (01) ==
PROVIDERS: Emergency Provider Emergency Medicine
DX: R51.9 Headache, unspecified (principal); E11.65 Type 2 diabetes mellitus with hyperglycemia; R10.9 Unspecified abdominal pain; R94.31 Abnormal electrocardiogram [ECG] [EKG]; Z20.822 Contact with and (suspected) exposure to COVID-19; Z20.828 Contact with and (suspected) exposure to other viral communicable diseases; Z79.84 Long term (current) use of oral hypoglycemic drugs; Z79.899 Other long term (current) drug therapy
CPT/HCPCS: 36415; 70450; 74176; 80048; 80076; 81001; 82947; 83690; 84484; 85025; 87635; 93005; 96360; 99284; 99285

== ENCOUNTER 2023-06-03 11:08 | Emergency (ER) | payer OTHER, MEDICAID, SELFPAY ==
--- NOTE | ~2023-06-03 | XR_ITS ---
EXAMINATION: PORTABLE CHEST 1 VIEW CLINICAL INFORMATION: cough. COMPARISON: 12/21/2021. TECHNIQUE: Portable frontal view of the chest was obtained. FINDINGS: The lungs are well expanded. No focal infiltrate, effusion, edema, or pneumothorax. Cardiac and mediastinal silhouettes are within normal limits for size with vascular calcification in the aorta. No acute bony abnormality seen. Degenerative changes in the spine and shoulders. XR/XR chest 1V IMPRESSION: No evidence of acute disease.
[2023-06-03 11:11] VITALS: BP 146/74; PULSE 86; O2SAT 98
[2023-06-03 11:17] VITALS: BP 141/74; PULSE 75; RESP 18; TEMP 36.6; O2SAT 96; BMI 27.5
--- NOTE | 2023-06-03 11:27 | ECG_ITS ---
Test Reason : COUGH Blood Pressure : / mmHG Vent. Rate : 070 BPM Atrial Rate : 070 BPM P-R Int : 140 ms QRS Dur : 080 ms QT Int : 406 ms P-R-T Axes : 042 -46 100 degrees QTc Int : 438 ms Normal sinus rhythm Left anterior fascicular block Possible Anterolateral infarct (cited on or before 30-SEP-2018) Abnormal ECG When compared with ECG of 25-APR-2022 16:44, Questionable change in initial forces of Lateral leads Referred By: Melissa Gonzalez Electronically Signed By:Srikanth Godinez
[2023-06-03 11:36] LABS: MANUAL DIFF FLAG NO
[2023-06-03 11:38] LABS: Basophils Absolute Auto 0.1 X10*3/uL (0.0-0.2); Basophils Percent Auto 0.7 % (0-2); Eosinophils Absolute Auto 0.2 X10*3/uL (0.0-0.4); Eosinophils Percent Auto 2.3 % (0-4); Hematocrit 43.2 % (42.0-52.0); Hemoglobin 14.3 g/dl (14.0-18.0); Imm Gran Abs Auto 0.02 X10*3/uL (0.00-0.03); Imm Gran Pct Auto 0.2 % (0.0-0.4); Lymphocytes Absolute Auto 1.5 X10*3/uL (1.2-4.9); Lymphocytes Percent Auto 16.7 % (20-40); Mean Corpuscular HGB Conc 33.1 g/dl (31.0-36.0); Mean Corpuscular Hemoglobin 29.4 pg (27.0-33.0); Mean Corpuscular Volume 88.9 fL (80.0-98.0); Mean Platelet Volume 10.8 fL (9.4-12.4); Monocytes Absolute Auto 0.6 X10*3/uL (0.1-1.2); Monocytes Percent Auto 6.5 % (2-11); Neutrophils Absolute Auto 6.8 x10*3/uL (2.0-8.3); Neutrophils Percent Auto 73.6 % (45-73); Platelet Count 186 X10*3/uL (160-400); Red Blood Count 4.86 X10*6/uL (4.60-5.80); Red Cell Distribution Width 11.9 % (11.0-16.0); White Blood Count 9.2 X10*3/uL (4.8-10.8)
[2023-06-03 11:50] VITALS: O2SAT 96
[2023-06-03 11:53] LABS: Alanine Aminotransferase 38 U/L (0-40); Albumin Level 4.1 g/dL (3.5-5.0); Alkaline Phosphatase 127 U/L (39-117); Anion Gap 12 (12-20); Aspartate Amino Transferase 22 U/L (5-37); Bilirubin Total 0.7 mg/dL (0.0-1.0); Blood Urea Nitrogen 11 mg/dL (9-16); Calcium 10.1 mg/dL (8.4-10.2); Carbon Dioxide 27 mmol/L (22-29); Chloride 103 mmol/L (96-108); Creatinine Clr Calc Pharmacy 62.6; Estimated Glomerular Filt Rate > 60; Glucose Random 269 mg/dL (60-115); Potassium 3.6 mmol/L (3.3-5.1); Sodium 138 mmol/L (135-145)
[2023-06-03 12:17] LABS: Influenza A PCR NEGATIVE (Negative); Influenza B PCR NEGATIVE (Negative); Resp Syncy Virus RNA Qual PCR NEGATIVE (Negative); SARS COV2 PCR INHOUSE NEGATIVE (Negative)
--- NOTE | 2023-06-03 12:24 | ED.URI ---
HPI - URI/Sore Throat General Chief Complaint: Upper Respiratory Symptoms Stated Complaint: FEVER AND COUGH Time Seen by Provider: 06/03/23 11:27 Source: patient, family and licensed practical vocational nurse Mode of arrival: EMS History of Present Illness HPI Narrative: 77-year-old male with 1 week history of cough and although fevers reported in the triage note neither the patient nor the family member report any fevers or chills and no GI or symptoms. Related Data Home Medications Medication Instructions Recorded Confirmed amlodipine 5 mg tablet 5 mg PO DAILY 09/23/20 12/11/21 aspirin 81 mg tablet,delayed 81 mg PO DAILY 09/23/20 12/11/21 release docusate sodium 100 mg capsule 100 mg PO BID 09/23/20 12/11/21 enalapril maleate 20 mg tablet 20 mg PO DAILY 09/23/20 12/11/21 gabapentin 100 mg capsule 1 cap PO TID 09/23/20 12/11/21 metformin 500 mg tablet,extended 1,000 tab PO DAILY 09/23/20 12/11/21 release 24 hr omeprazole 20 mg capsule,delayed 20 mg PO BID@0630,1630 09/23/20 12/11/21 release fluticasone propionate 50 1 spray intranasal DAILY PRN Nasal 11/25/21 12/11/21 mcg/actuation nasal Congestion spray,suspension Previous Rx's Medication Instructions Recorded atorvastatin 40 mg tablet 40 mg PO DAILY #30 tabs 11/27/21 tramadol 50 mg tablet 50 mg PO BID PRN pain 23 days #46 12/17/21 tabs Allergies Allergy/AdvReac Type Severity Reaction Status Date / Time No Known Allergies Allergy Verified 11/15/21 11:05 [No Known Allergies*] Review of Systems Review of Systems: Pertinent positives and negatives as stated in HPI PMFSH Past Medical History Source: nursing notes reviewed Medical History Type 2 diabetes mellitus Speech abnormality Chronic pain syndrome Degenerative disc disease, lumbar Dementia GERD (gastroesophageal reflux disease) Diabetic neuropathy High cholesterol Hypertension Surgical History Status post right knee replacement Social History Social History Household Members: Children Housing: Apartment Do you presently have visiting nurse or other home services: Yes Alcohol intake: never Patient Tobacco Use Status: Never used Tobacco Tobacco use type: Cigarette Smoked in Last 30 Days: No Use of substances other than those prescribed or required for medical reasons: No Advance Directives: Yes Advance Directives on File: Yes Advance Directives Date on File: 09/28/20 service: No Current occupational status: disabled Physical Exam Vital Signs: Vital Signs: Last Vital Signs Temp 97.8 F 06/03/23 11:17 Pulse 75 06/03/23 11:17 Resp 18 06/03/23 11:17 BP 141/74 H 06/03/23 11:17 Pulse Ox 96 06/03/23 11:50 O2 Del Method Room Air 06/03/23 11:50 BMI result Body Mass Index 27.5 VITAL SIGNS: Reviewed. GENERAL: Well developed, well nourished, in no acute distress. HEAD: Normocephalic/atraumatic EYES: PERRLA, EOMI EARS: Ext canals without abnormality, TMs non-bulging and non-erythematous NOSE: Nares patent bilateral OROPHARYNX: no oral lesions noted, posterior pharynx clear and non-erythematous without noted tonsillar enlargement/erythema/exudates NECK: Supple, no adenopathy LUNGS: Normal breath sounds. No adventitious sounds or accessory muscle use. SpO2<96> CARDIOVASCULAR: Regular rate and rhythm without noted murmurs, no JVD or lower extremity edema. ABDOMEN: Soft, non-tender, non-distended with bowel sounds. MUSCULOSKELETAL: No tenderness, deformities, or effusions noted on gross inspection. EXTREMITIES: No cyanosis, clubbing or edema. SKIN: Inspection of the skin reveals no rashes NEUROLOGIC: Alert and oriented x 4. Strength and sensation to light touch were grossly intact x 4. Medical Decision Making Medical Decision Making MDM Narrative: 77-year-old male who otherwise appears well with a history and clinical presentation, DDX: Viral illness, pneumonia I reviewed all investigations and hematologic indices are negative for leukocytosis/anemia/thrombocytopenia. Chemistry indices negative for SHARLA/electrolyte derangements, patient has mild hyperglycemia without evidence of DKA or HHS. Viral testing negative for influenza/RSV/COVID. Chest x-ray negative for infiltrate or venous congestion otherwise my interpretation is in agreement with radiology's impression. My interpretation is that patient has chronic cough that could be attributed bowl to multiple factors, allergies, host viral residual cough and patient is recommended to follow-up with his primary care doctor. Differential Diagnosis Differential Diagnoses: The differential diagnosis associated with the presentation includes Please see the discussion above Admission/Observation Consideration of admission/observation: Escalation of care including admission/observation considered Please see the discussion above Lab Data MDM Lab Attestation statement: I reviewed the patient's lab results. Please see the discussion above 06/03/23 11:33 06/03/23 11:33 Labs: Lab Results 06/03/23 06/03/23 Range/Units 11:26 11:33 WBC 9.2 (4.8-10.8) X10*3/uL RBC 4.86 (4.60-5.80) X10*6/uL Hgb 14.3 (14.0-18.0) g/dl Hct 43.2 (42.0-52.0) % MCV 88.9 (80.0-98.0) fL MCH 29.4 (27.0-33.0) pg MCHC 33.1 (31.0-36.0) g/dl RDW 11.9 (11.0-16.0) % Plt Count 186 (160-400) X10*3/uL MPV 10.8 (9.4-12.4) fL Immature Gran % (Auto) 0.2 (0.0-0.4) % Neut % (Auto) 73.6 H (45-73) % Lymph % (Auto) 16.7 L (20-40) % Cannon % (Auto) 6.5 (2-11) % Eos % (Auto) 2.3 (0-4) % Baso % (Auto) 0.7 (0-2) % Lymph # (Auto) 1.5 (1.2-4.9) X10*3/uL Cannon # (Auto) 0.6 (0.1-1.2) X10*3/uL Eos # (Auto) 0.2 (0.0-0.4) X10*3/uL Baso # (Auto) 0.1 (0.0-0.2) X10*3/uL Abs Immat Gran (auto) 0.02 (0.00-0.03) X10*3/uL Absolute Neuts (auto) 6.8 (2.0-8.3) x10*3/uL Absolute Nucleated RBC 0.000 (0.0-0.012) X10*3/uL Nucleated RBC % (auto) 0.0 (0.0-0.2) /100WBC Sodium 138 (135-145) mmol/L Potassium 3.6 (3.3-5.1) mmol/L Chloride 103 (96-108) mmol/L Carbon Dioxide 27 (22-29) mmol/L Anion Gap 12 (12-20) BUN 11 (9-16) mg/dL Creatinine 0.94 (0.5-1.4) mg/dL Estim Creat Clear Calc 62.6 Estimated GFR > 60 Random Glucose 269 H (60-115) mg/dL Calcium 10.1 (8.4-10.2) mg/dL Total Bilirubin 0.7 (0.0-1.0) mg/dL AST 22 (5-37) U/L ALT 38 (0-40) U/L Alkaline Phosphatase 127 H (39-117) U/L Total Protein 7.0 (6.5-8.0) g/dL Albumin 4.1 (3.5-5.0) g/dL Influenza Type A (PCR) NEGATIVE (Negative) Influenza Type B (PCR) NEGATIVE (Negative) RSV RNA Qual (PCR) NEGATIVE (Negative) SARS-CoV-2 RNA (RT-PCR) NEGATIVE (Negative) Independent Interpretation I performed an independent interpretation of an: EKG Interpretation: Normal sinus rhythm, HR-70, no STEMI, TX/QRS/QTC is within normal limits. Radiology Impression Discussion of test interpretation with radiology: I have reviewed the radiologist's reading. Radiologist Impression: Please see the discussion above External Record Review External record reviewed: Outpatient record, Prior outpatient labs and Prior outpatient radiology Chronic Conditions Patient?s care impacted by: Diabetes and Hypertension Critical Care Time Critical Care Time Critical Care Time: Yes Total Critical Care Time: 45 Attestation: I personally attest to this time spent taking care of the patient. Discharge Plan Discharge Clinical Impression: Chronic cough Patient Disposition: Home, Self-Care Instructions: Chronic Cough (ED) Additional Instructions: 1. Resume all home medications as prescribed. 2. Follow-up with primary care doctor on Monday morning. Return to the ER for any worsening symptoms. Prescriptions: No Action tramadol 50 mg tablet 50 mg PO BID PRN (Reason: pain) 23 Days Qty: 46 0RF enalapril maleate 20 mg tablet 20 mg PO DAILY amlodipine 5 mg tablet 5 mg PO DAILY aspirin 81 mg tablet,delayed release (DR/EC) 81 mg PO DAILY docusate sodium 100 mg capsule 100 mg PO BID omeprazole 20 mg capsule,delayed release(DR/EC) 20 mg PO BID@0630,1630 gabapentin 100 mg capsule 1 cap PO TID metformin 500 mg tablet extended release 24 hr 1,000 tab PO DAILY fluticasone propionate 50 mcg/actuation spray,suspension 1 spray intranasal DAILY PRN (Reason: Nasal Congestion) atorvastatin 40 mg Tablet 40 mg PO DAILY Qty: 30 0RF Print Language: Nepali
[2023-06-03 13:49] LABS: Appearance Urine Cloudy; Color Urine Dark Yellow; Glucose Urine UA 500 mg/dL (Negative); Leukocyte Esterase Urine Negative (Negative); Nitrite Urine Negative (Negative); PH 5.5 (5.0-9.0); Specific Gravity - Urine 1.025 (1.005-1.025); UMIC TRIGGER UACC YES; Urine Blood Large (3+) (Negative); Urine Ketones Trace mg/dL (Negative); Urine Protein 30 (1+) mg/dL (Neg-Trace)
[2023-06-03 13:58] LABS: Bacteria Urine None Seen (None Seen); Hyaline Casts Urine 0-2 /LPF (0-2); RBC Urine >20 /HPF (0-2); Squamous Epithelial Cell Urine 0-2 /HPF (0-2); WBC Urine 0-5 /HPF (0-5)
[2023-06-03 14:12] VITALS: BP 134/73; PULSE 69; RESP 16; TEMP 36.7; O2SAT 95
== END 2023-06-03 16:48 | disposition home or self-care (01) ==
PROVIDERS: Emergency Provider Student in an Organized Health Care Education/Training Program
DX: R05.3 Chronic cough (principal); E11.9 Type 2 diabetes mellitus without complications; I10 Essential (primary) hypertension; F03.90 Unspecified dementia, unspecified severity, without behavioral disturbance, psychotic disturbance, mood disturbance, and anxiety; Z11.52 Encounter for screening for COVID-19; Z20.828 Contact with and (suspected) exposure to other viral communicable diseases
CPT/HCPCS: 0241U; 71045; 80053; 81001; 85025; 93005; 99283; 99285

== ENCOUNTER → 2023-06-03 11:27 | Outpatient (BNV) | payer OTHER, MEDICAID, SELFPAY | PROVIDERS: Emergency Provider Student in an Organized Health Care Education/Training Program; Visit Provider Internal Medicine Cardiovascular Disease | DX: R94.31 Abnormal electrocardiogram [ECG] [EKG] (principal) | CPT/HCPCS: 93010 ==

== ENCOUNTER 2024-09-26 16:47 | Emergency (ER) | payer OTHER, MEDICAID, SELFPAY ==
--- NOTE | 2024-09-26 | ECG_ITS ---
Test Reason : DIZZINESS Blood Pressure : */* mmHG Vent. Rate : 71 BPM Atrial Rate : * BPM P-R Int : * ms QRS Dur : 76 ms QT Int : 432 ms P-R-T Axes : * -44 67 degrees QTcB Int : 469 ms Accelerated Junctional rhythm Left axis deviation Low voltage QRS Possible Anterolateral infarct (cited on or before 30-Sep-2018) Abnormal ECG When compared with ECG of 03-Jun-2023 11:37, Junctional rhythm has replaced Sinus rhythm Referred By: Generic ED Physician Electronically Signed By: Srikanth Godinez
[2024-09-26 17:02] VITALS: BP 127/72; PULSE 73; RESP 18; TEMP 36.6; O2SAT 95
[2024-09-26 17:03] VITALS: BP 130/72; BP 137/72; PULSE 66; PULSE 72; RESP 17; TEMP 36.6; O2SAT 95; O2SAT 97; BMI 26.5
[2024-09-26 17:17] LABS: MANUAL DIFF FLAG NO
[2024-09-26 17:27] LABS: Hematocrit 43.2 % (42.0-52.0); Hemoglobin 14.4 g/dl (14.0-18.0); Imm Gran Abs Auto 0.03 X10*3/uL (0.00-0.03); Imm Gran Pct Auto 0.3 % (0.0-0.4); Lymphocytes Absolute Auto 1.6 X10*3/uL (1.2-4.9); Mean Corpuscular HGB Conc 33.3 g/dl (31.0-36.0); Mean Corpuscular Hemoglobin 29.1 pg (27.0-33.0); Mean Corpuscular Volume 87.4 fL (80.0-98.0); NRBC Abs Auto 0.000 X10*3/uL (0.0-0.012); NRBC Pct Auto 0.0 /100WBC (0.0-0.2); Platelet Count 193 X10*3/uL (160-400); Red Blood Count 4.94 X10*6/uL (4.60-5.80); White Blood Count 9.0 X10*3/uL (4.8-10.8)
--- NOTE | 2024-09-26 17:29 | ED.GIBLEED ---
HPI - GI Bleed General Chief complaint: Abdominal Pain Stated complaint: Lower GI pain, black stool Time Seen by Provider: 09/26/24 17:28 Source: family Mode of arrival: EMS Limitations: no limitations History of Present Illness ED Provider: HPI Narrative: Patient 79 years old with history of TIA hyperlipidemia diabetes hypertension comes here for having watery black stool once earlier today no history of any ulcer was slightly nauseated no prior history of GI bleed, patient not on any anticoagulants except for aspirin Related Data Home Medications ?Medication ?Instructions ?Recorded ?Confirmed amlodipine 5 mg tablet 5 mg PO DAILY 09/23/20 12/11/21 aspirin 81 mg tablet,delayed 81 mg PO DAILY 09/23/20 12/11/21 release docusate sodium 100 mg capsule 100 mg PO BID 09/23/20 12/11/21 enalapril maleate 20 mg tablet 20 mg PO DAILY 09/23/20 12/11/21 gabapentin 100 mg capsule 1 cap PO TID 09/23/20 12/11/21 metformin 500 mg tablet,extended 1,000 tab PO DAILY 09/23/20 12/11/21 release 24 hr omeprazole 20 mg capsule,delayed 20 mg PO BID@0630,1630 09/23/20 12/11/21 release fluticasone propionate 50 1 spray intranasal DAILY PRN Nasal 11/25/21 12/11/21 mcg/actuation nasal Congestion spray,suspension Previous Rx's ?Medication ?Instructions ?Recorded atorvastatin 40 mg tablet 40 mg PO DAILY #30 tabs 11/27/21 tramadol 50 mg tablet 50 mg PO BID PRN pain 23 days #46 12/17/21 tabs benzonatate 200 mg capsule 200 mg PO BID PRN cough #7 caps 06/03/23 Allergies Allergy/AdvReac Type Severity Reaction Status Date / Time No Known Allergies (No Known Allergy Verified 09/26/24 17:05 Allergies*) Review of Systems Review of Systems: Yes all other systems are reviewed and are negative [facility] Past Medical History Medical History Type 2 diabetes mellitus Speech abnormality Chronic pain syndrome Degenerative disc disease, lumbar Dementia GERD (gastroesophageal reflux disease) Diabetic neuropathy High cholesterol Hypertension Surgical History Status post right knee replacement Social History Social History Household Members: Children Housing: Apartment Do you presently have visiting nurse or other home services: Yes Alcohol intake: never Patient Tobacco Use Status: Never used Tobacco Tobacco use type: Cigarette Smoked in Last 30 Days: No Advance Directives: Yes Advance Directives on File: Yes Advance Directives Date on File: 09/28/20 service: No Current occupational status: disabled Physical Exam Vital Signs: Vital Signs: Last Vital Signs Temp 97.7 F 09/26/24 19:47 Pulse 76 09/26/24 19:47 Resp 19 09/26/24 19:47 BP 136/70 09/26/24 19:47 Pulse Ox 96 09/26/24 19:47 O2 Del Method Room Air 09/26/24 19:47 BMI result Body Mass Index 26.5 Appearance: Alert. Oriented X3. No acute distress. Eyes: PERRLA, No Nystagmus ENT: Pharynx normal. Oral Mucosa moist Neck: Normal inspection. Neck supple. CVS: Normal heart rate and rhythm. Pulses normal. Respiratory: No respiratory distress. Equal air entry bilateral, no wheezing/rales/rhonchi Abdomen: Soft and nontender. Bowel sounds are present, no mass palpable, no CVA tenderness rectal: Dark stool, guaiac negative Skin: Skin warm and dry. Normal skin color. Normal skin turgor. Extremities: No lower extremity edema. No calf tenderness Neuro: Oriented X 3. No motor deficit. No sensory deficit.No cerebellar signs , cranial nerves II-XII intact Medical Decision Making Medical Decision Making MDM Narrative: Patient had dark stool guaiac is negative labs are stable no significant distress discharge patient home Differential Diagnosis Differential Diagnoses: The differential diagnosis associated with the presentation includes Lab Data [facility] Lab Attestation statement: I reviewed the patient's lab results. 09/26/24 17:11 09/26/24 17:11 Labs: Lab Results 09/26/24 09/26/24 09/26/24 Range/Units 17:11 17:38 18:28 WBC 9.0 (4.8-10.8) X10*3/uL RBC 4.94 (4.60-5.80) X10*6/uL Hgb 14.4 (14.0-18.0) g/dl Hct 43.2 (42.0-52.0) % MCV 87.4 (80.0-98.0) fL MCH 29.1 (27.0-33.0) pg MCHC 33.3 (31.0-36.0) g/dl RDW 11.7 (11.0-16.0) % Plt Count 193 (160-400) X10*3/uL MPV 10.4 (9.4-12.4) fL Immature Gran % (Auto) 0.3 (0.0-0.4) % Neut % (Auto) 72.0 (45-73) % Lymph % (Auto) 18.1 L (20-40) % [place] % (Auto) 7.3 (2-11) % Eos % (Auto) 1.5 (0-4) % Baso % (Auto) 0.8 (0-2) % Lymph # (Auto) 1.6 (1.2-4.9) X10*3/uL [place] # (Auto) 0.7 (0.1-1.2) X10*3/uL Eos # (Auto) 0.1 (0.0-0.4) X10*3/uL Baso # (Auto) 0.1 (0.0-0.2) X10*3/uL Abs Immat Gran (auto) 0.03 (0.00-0.03) X10*3/uL Absolute Neuts (auto) 6.5 (2.0-8.3) x10*3/uL Absolute Nucleated RBC 0.000 (0.0-0.012) X10*3/uL Nucleated RBC % (auto) 0.0 (0.0-0.2) /100WBC PT 12.3 (10.9-12.4) SEC INR 1.1 (0.9-1.1) APTT 30.8 (26.0-36.8) SEC Sodium 138 (135-145) mmol/L Potassium 3.8 (3.3-5.1) mmol/L Chloride 106 (96-108) mmol/L Carbon Dioxide 23 (22-29) mmol/L Anion Gap 13 (12-20) BUN 12 (9-16) mg/dL Creatinine 0.76 (0.5-1.4) mg/dL Estim Creat Clear Calc 75.0 Estimated GFR > 60 Random Glucose 119 H (60-115) mg/dL Calcium 9.1 D (8.4-10.2) mg/dL Magnesium 1.7 (1.6-2.6) mg/dL Total Bilirubin 0.9 (0.0-1.0) mg/dL AST 31 (5-37) U/L ALT 24 (0-40) U/L Alkaline Phosphatase 93 (39-117) U/L Troponin I High Sens 17.0 (<3.5-35.0) ng/L Total Protein 7.0 (6.5-8.0) g/dL Albumin 4.4 (3.5-5.0) g/dL Stool Occult Blood NEGATIVE (NEGATIVE) Independent Interpretation I performed an independent interpretation of an: EKG Interpretation: Sinus rhythm with heart rate of 71 beats per minute left axis deviation no acute ST-T changes no acute ischemia Discharge Plan Discharge Clinical Impression: Diarrhea Patient Disposition: Home, Self-Care Instructions: Acute Diarrhea (ED) Additional Instructions: Drink plenty of fluids Your black stool is not from the blood Follow-up with your PCP if any concerns Prescriptions: No Action tramadol 50 mg tablet 50 mg PO BID PRN (Reason: pain) 23 Days Qty: 46 0RF enalapril maleate 20 mg tablet 20 mg PO DAILY amlodipine 5 mg tablet 5 mg PO DAILY aspirin 81 mg tablet,delayed release (DR/EC) 81 mg PO DAILY docusate sodium 100 mg capsule 100 mg PO BID omeprazole 20 mg capsule,delayed release(DR/EC) 20 mg PO BID@0630,1630 gabapentin 100 mg capsule 1 cap PO TID metformin 500 mg tablet extended release 24 hr 1,000 tab PO DAILY fluticasone propionate 50 mcg/actuation spray,suspension 1 spray intranasal DAILY PRN (Reason: Nasal Congestion) atorvastatin 40 mg Tablet 40 mg PO DAILY Qty: 30 0RF benzonatate 200 mg capsule 200 mg PO BID PRN (Reason: cough) Qty: 7 0RF Interventions: ED Discharge Assessment Last Done: 09/26/24 19:47 Discharge Date/Time: 09/26/24 19:48 Print Language: Mosotho
[2024-09-26 17:32] LABS: Alanine Aminotransferase 24 U/L (0-40); Albumin Level 4.4 g/dL (3.5-5.0); Alkaline Phosphatase 93 U/L (39-117); Anion Gap 13 (12-20); Aspartate Amino Transferase 31 U/L (5-37); Blood Urea Nitrogen 12 mg/dL (9-16); Calcium 9.1 mg/dL (8.4-10.2); Carbon Dioxide 23 mmol/L (22-29); Chloride 106 mmol/L (96-108); Creatinine Clr Calc Pharmacy 75.0; Estimated Glomerular Filt Rate > 60; Magnesium 1.7 mg/dL (1.6-2.6); Potassium 3.8 mmol/L (3.3-5.1); Sodium 138 mmol/L (135-145); Total Protein 7.0 g/dL (6.5-8.0)
[2024-09-26 17:39] LABS: Troponin-I High Sensitivity 17.0 ng/L (<3.5-35.0)
--- NOTE | 2024-09-26 17:42 | PC.NURSE ---
Addendum entered by Emily Aparicio RN 09/26/24 17:43: Patient 79 years old with history of TIA hyperlipidemia diabetes hypertension who presents with abdominal pain and black tarry stools with assoc dizziness. Patient denies any complaint at this time. Placed on the alarm security or surveillance monitor and NSR noted. Lungs clear bilat. Respirations even and non-labored. Abdomen soft, non-tender with positive bowel sounds. Positive pedal pulses with no edema. noted. Original Note: Medical History Type 2 diabetes mellitus Speech abnormality Chronic pain syndrome Degenerative disc disease, lumbar Dementia GERD (gastroesophageal reflux disease) Diabetic neuropathy High cholesterol Hypertension
[2024-09-26 17:56] LABS: INTERNATIONAL NORM RATIO 1.1 (0.9-1.1); Prothrombin Time 12.3 SEC (10.9-12.4)
[2024-09-26 17:59] LABS: Partial Thromboplastin Time 30.8 SEC (26.0-36.8)
[2024-09-26 18:11] VITALS: BP 136/70; PULSE 76; RESP 19; TEMP 36.5; O2SAT 96
[2024-09-26 18:37] LABS: OBS Int Ctl Valid YES; OBS1 NEGATIVE (NEGATIVE)
--- NOTE | 2024-09-26 19:11 | PC.NURSE ---
pt awaiting EMS transport home
[2024-09-26 19:47] VITALS: BP 136/70; PULSE 76; RESP 19; TEMP 36.5; O2SAT 96
== END 2024-09-26 19:48 | disposition home or self-care (01) ==
PROVIDERS: Emergency Provider Internal Medicine; PCP Internal Medicine
DX: R19.7 Diarrhea, unspecified (principal); E11.9 Type 2 diabetes mellitus without complications; G89.4 Chronic pain syndrome; I10 Essential (primary) hypertension
CPT/HCPCS: 36415; 80053; 82272; 83735; 84484; 85025; 85610; 85730; 93005; 99283; 99285

== ENCOUNTER → 2024-09-26 17:14 | Outpatient (BNV) | payer OTHER, MEDICAID, SELFPAY | PROVIDERS: Emergency Provider Internal Medicine; PCP Internal Medicine; Visit Provider Internal Medicine Cardiovascular Disease | DX: R94.31 Abnormal electrocardiogram [ECG] [EKG] (principal); R42 Dizziness and giddiness | CPT/HCPCS: 93010 ==